=== PATIENT | male | born 1965 | race Caucasian/White ===

== ENCOUNTER 2016-01-29 08:49 | Outpatient (RCR) | payer BC ==
--- OUTSIDE RECORDS SUMMARY | 2016-01-26 12:59 | XMS REPORT | Continuity of Care Document ---
Author Author [facility] Organization [facility] Address Unknown Phone Unavailable Care Team Providers Care Bench Mover Name Role Phone TIFFANIE SALAS MD PCP Insurance Providers Payer Name Policy Number Subscriber Name [id number] Kuld[facility] Espinoza K 01 Advance Directives Directive Response Recorded Date/Time Advance Directives No 11/01/15 9:54am Health Care Power of Hot Pipe Gauger No 11/01/15 9:54am Resuscitation Status Full Code 11/01/15 9:54am Problems No problem information available. Medications Current Home Medications Medication Dose Units Route Directions Days/Qty Instructions Start Date Amlodipine Besylate 5 Mg 5 Mg Oral Daily 10/31/15 Zolpidem Tartrate 10 Mg 10 Mg Oral Bedtime as needed for Sleep 10/30 Ondansetron 8 Mg 8 Mg Oral As Needed as needed for Nausea 10/31/15 Nitrofurantoin Macrocrystal 100 Mg 100 Mg Oral Twice A Day 14 11/01/15 Tamsulosin Hcl 0.4 Mg 0.4 Mg Oral Daily 14 11/01/15 Hydrocodone/Acetaminophen 1 Each 1-2 Each Oral Every 4HRS for Pain 30 11/01/15 Social History Social History Problem Response Recorded Date/Time Alcohol Use Regular Use 11/01/2015 9:54am Recreational Drug Use No 11/01/2015 9:54am Recent Foreign Travel No 11/01/2015 9:52am Recent Infectious Disease Exposure No 11/01/2015 9:52am Sexually Transmitted Disease No 11/01/2015 9:54am HIV/AIDS No 11/01/2015 9:54am Smoking Status Never a Smoker 11/01/2015 9:53am Query Response Start Date Stop Date Smoking Status Never a Smoker Hospital Discharge Instructions Patient Instructions Physician Instructions New, Converted, or Re-newed RX: RX on Chart Plan Please make appointment to been seen in office Sunday 11/12. KUB prior to it KUB on way home Post ESWL instructions Increase oral fluids for 48 hours and then as needed. Diet and Activity as tolerated. If questions or concerns contact your physician Or seek help at emergency department. Plan of Care Discharge Date 11/01/15 2:35pm Instructions/Education Provided ANESTHESIA INSTRUCTIONS POSTOP DR. CRUMP-ESWL Prescriptions See Medication Section Functional Status No functional status results. Allergies, Adverse Reactions, Alerts No known allergies. Immunizations No immunization records. Vital Signs Acute Vital Signs Vital Response Date/Time Temperature (Fahrenheit) 98.0 degrees F (97.6 - 99.5) 11/01/2015 2:35pm Temperature (Calculated Celsius) 36.72849 degrees C (36.4 - 37.5) 11/01/2015 2:30pm Temperature Source Temporal 11/01/2015 2:35pm Pulse Rate (adult) 77 bpm (60 - 90) 11/01/2015 2:35pm Respiratory Rate 16 bpm (12 - 24) 11/01/2015 2:35pm O2 Sat by Pulse Oximetry 98 % (88 - 100) 11/01/2015 2:35pm Blood Pressure 137/99 mm Hg 11/01/2015 2:35pm Pain Numeric Pain Scale 0 11/01/2015 2:35pm Pain Intensity 0 11/01/2015 2:30pm Height (Feet) 6 feet 11/01/2015 9:54am Height (Inches) 2.00 inches 11/01/2015 9:54am Height (Calculated Centimeters) 187.330291 cm 11/01/2015 9:54am Weight (Pounds) 210 pounds 11/01/2015 9:54am Weight (Ounces) 9.0 oz 11/01/2015 9:54am Weight (Calculated Grams) 16696.544 gm 11/01/2015 9:54am Weight (Calculated Kilograms) 95.247885 kilograms 11/01/2015 9:54am Calculated BMI 24.26 11/01/2015 9:54am Results Pending Laboratory Results Test Name Collection Date/Time Pending Microbiology Results Procedure Source Collection Date/Time Procedures Procedure Status Date Provider(s) Extracorporeal shock wave lithotripsy (ESWL) Completed 11/01/15 PHILIPPE CRUMP MD Encounters Encounter Location Arrival/Admit Date Discharge/Depart Date Attending Provider Departed Surgical Day Care [facility] 11/01/15 8:56am 2:35pm PHILIPPE CRUMP MD Departed Clinic [facility] 10/31/15 1:54pm 10/31/15 4: 30pm PHILIPPE CRUMP MD
[2016-01-26 13:19] LABS: BILIRUBIN,URINE NEGATIVE (NEGATIVE); KETONES,URINE NEGATIVE (NEGATIVE); LEUKOCYTE ESTERASE ,URINE NEGATIVE (NEGATIVE); NITRITE,URINE NEGATIVE (NEGATIVE); PH,URINE 6.5 (5-9); PROTEIN,URINE NEGATIVE (NEGATIVE); UROBILINOGEN,URINE NORMAL (NORMAL)
[2016-01-28 15:31] LABS: C3 COMPLEMENT SERUM 120 mg/dL (73-183); C4 COMPLEMENT SERUM 23 mg/dL (15-59)
[~2016-01-29 08:49] MED LIST: AMLO5TAB2 PO; HYDR-3876 PO; NITR-68 PO; ONDA8TAB9 PO; TAMS0.4C98 PO; ZOLP10TA5 PO
--- OUTSIDE RECORDS SUMMARY | 2016-01-29 08:51 | XMS REPORT | Continuity of Care Document ---
Author Author [facility] Organization [facility] Address Unknown Phone Unavailable Care Team Providers Care Convex Grinder Operator Name Role Phone TIFFANIE SALAS MD PCP Insurance Providers Payer Name Policy Number Subscriber Name [id number] Stephanie Espinoza K 01 Advance Directives Directive Response Recorded Date/Time Advance Directives No 11/01/15 9:54am Health Care Power of Manager Agricultural No 11/01/15 9:54am Problems No problem information available. [...] No 11/01/2015 9:54am Recent Foreign Travel No 01/26/2016 12:48pm Sexually Transmitted Disease No 11/01/2015 9:54am HIV/AIDS No 11/01/2015 9:54am Sexually Transmitted Disease No 11/01/2015 9:54am Hospital Discharge Instructions Current inpatient/outpatient. Discharge instructions are currently unavailable. Plan of Care Prescriptions Functional Status No functional status results. Allergies, Adverse Reactions, Alerts No known allergies. Immunizations No immunization records. Vital Signs No known vital signs results. Results Laboratory Results Test Name Result Units Flags Reference Collection Date/Time Result Date/ Time Comments Stone Calcium 307 mg/day H < 250 12/11/2015 8:3012/19/2015 7:21am Stone Oxalate 38 mg/day < 45 12/11/2015 8:3012/19/2015 7:21am Stone Uric Acid 905 mg/day H < 700 12/11/2015 8:3012/19/2015 7:21am Urine Citrate 24 Hour 443 mg/day > 320 12/11/2015 8:3012/19/2015 7: 21am Urine pH 24 Hour 7.0 5.5-7.0 12/11/2015 8:3012/19/2015 7:21am Urine Total Volume 24 Hours 2.60 L/day > 2.00 12/11/2015 8:302015 7:21am Urine Sodium 24 Hour 159 mEq/24hr < 200 12/11/2015 8:3012/19/2015 7: 21am Urine Sulfites 12 mmol/day < 30 12/11/2015 8:3012/19/2015 7:21am Urine Phosphorus 24 Hour 959 mg/day < 1100 12/11/2015 8:302015 7:21am Urine Magnesium 24 Hour 89 mg/day > 60 12/11/2015 8:3012/19/2015 7: 21am Stone Calcium Oxalate 1.89 < 2.00 12/11/2015 8:3012/19/2015 7: 21am Stone Brushite 4.33 H < 2.00 12/11/2015 8:3012/19/2015 7:21am Stone Sodium Acid Urate 1.93 < 2.00 12/11/2015 8:3012/19/2015 7: 21am Stone Struvite 7.02 < 75.00 12/11/2015 8:3012/19/2015 7:21am Urine Uric Acid Saturation Ratio 0.18 < 2.00 12/11/2015 8:302015 7:21am Urine Ammonium 24 Hour 38 mEq/24hr 14-62 12/11/2015 8:30am 12/19/2015 7 :21am Urine Potassium 24 Hour 27 mEq/24hr 19-135 12/11/2015 8:30am 2015 7:21am Urine Creatinine 24 Hour 2009 mg/day H 800-2000 12/11/2015 8:30am 2015 7:21am Urine Stone Risk Review See Below 12/11/2015 8:30am 12/19/2015 7: 22am Hypercalciuria Hyperuricosuria High urinary pH Urine Supersaturation Interpret See Below 12/11/2015 8:30am 2015 7:22am Brushite (Ca phosphate) Urine Stone Risk See Below 12/11/2015 8:30am 12/19/2015 7:22am Hypercalciuric Nephrolithiasis Hyperuricosuric Nephrolithiasis Urine Stone Risk Graph See Below 12/11/2015 8:30am 12/19/2015 7: 22am Creatinine analysis may be affected by collection period. Graphical report will follow under separate cover. Test Performed at: [facility], [address] [place] [id number] Director: Obdulia Abdalla MD, FCAP Pending Laboratory Results Test Name Collection Date/Time Procedures No known history of procedures. Encounters Encounter Location Arrival/Admit Date Discharge/Depart Date Attending Provider Registered Clinic [facility] 01/26/16 12:51pm LORENA CHUNG DO Discharged Recurring [facility] 12/11/15 8:30am 8:44am PHILIPPE CRUMP MD
[2016-03-13 13:09] LABS: PORPHOB 2 (0-4)
[2016-03-13 13:10] LABS: CREA/PORPH 43 MG/DL
[2016-03-13 13:11] LABS: COPROPOR 3 (0-6)
[2016-03-13 13:12] LABS: HEPTA 24H <1 (0-2)
[2016-03-13 13:15] LABS: UROPORPHY <3 UMOL/L (0.0-8.8)
[2016-03-13 13:25] LABS: COPROPHORPH III 8 (0-14); PORPHYRIN INTRP Negative
== END 2016-04-25 | disposition home or self-care (01) ==
LOC: LAB 08:49
PROVIDERS: ATTEND Internal Medicine Gastroenterology
DX: R39.89 Other symptoms and signs involving the genitourinary system (principal)
CPT/HCPCS: 36415; 81000; 82570; 84110; 84120; 85652; 86141; 86160; 88271

== ENCOUNTER → 2016-12-13 | Outpatient (CLI) | payer BC ==
[2016-12-13 10:41] LABS: ANION GAP 9 MMOL/L (5-14); BLOOD UREA NITROGEN 10 MG/DL (7-18); BUN/CREATININE RATIO 13; CALCIUM 9.1 MG/DL (8.5-10.1); CARBON DIOXIDE 25 MMOL/L (21-32); CHLORIDE 105 MMOL/L (98-107); CREATININE SERUM 0.75 MG/DL (0.60-1.30); GFR ESTIMATED > 60; GLUCOSE 88 MG/DL (70-105); PHOSPHORUS 3.8 MG/DL (2.3-4.7); POTASSIUM 4.2 MMOL/L (3.6-5.0); SODIUM 139 MMOL/L (135-145); URIC ACID 6.4 MG/DL (2.6-7.2)
--- NOTE | 2016-12-13 12:10 | Diagnostic Imaging Report ---
INDICATION: History of kidney stone. COMPARISON: 11/13/2015. FINDINGS: 2 calculi are again noted overlying the lower pole of the left kidney and appear unchanged measuring approximately 6 mm. There is a calcification which has developed in the upper pole measuring approximately 2 x 5 mm. No calculi are seen overlying the right renal shadow. There are calcifications in the pelvis along the sidewall felt to represent phlebolith. IMPRESSION: Left renal calculi again noted in the lower pole with additional calcifications now present along the upper pole as well. Dictated by: Dictated on workstation # [id number]
[2016-12-17 14:38] LABS: STONE RISK AMMONIUM 24 mEq/24hr (14-62); STONE RISK BRUSHITE 2.92 (< 2.00); STONE RISK CA OXALATE 2.45 (< 2.00); STONE RISK CALCIUM 228 mg/day (< 250); STONE RISK CITRATE 507 mg/day (> 320); STONE RISK CREATININE 1912 mg/day (800-2000); STONE RISK MAGNESIUM 98 mg/day (> 60); STONE RISK OXALATE 68 mg/day (< 45); STONE RISK PHOSPHOROUS 934 mg/day (< 1100); STONE RISK POTASSIUM 80 mEq/24hr (19-135); STONE RISK SODIUM 214 mEq/24hr (< 200); STONE RISK SODIUM URATES 1.94 (< 2.00); STONE RISK STRUVITE 4.66 (< 75.00); STONE RISK SULFITE 14 mmol/day (< 30); STONE RISK TOTAL VOLUME 2.39 L/day (> 2.00); STONE RISK URIC ACID 605 mg/day (< 700); STONE RISK URIC ACID SAT 0.13 (< 2.00)
== END ==
LOC: LAB 09:49
PROVIDERS: ATTEND Urology
DX: Z87.442 Personal history of urinary calculi (principal)
CPT/HCPCS: 36415; 74000; 80048; 82140; 82340; 82507; 82570; 83735; 83945; 83986; 84100; 84105; 84133; 84300; 84392; 84550; 84560

== ENCOUNTER → 2017-01-23 | Outpatient (CLI) | payer BC ==
[~2017-01-23] MED LIST changes: +CATHETER FLUSH 10 ML SYR IV PRN; +FUROSEMIDE 40 MG/4 ML INJ (LASIX) IVP ONE
--- NOTE | 2017-01-23 16:23 | Diagnostic Imaging Report ---
EXAMINATION: Renal scan with Lasix INDICATION: Left hydronephrosis. COMPARISON: No prior ultrasound or CT scan evaluation is available to correlate. TECHNIQUE: After the intravenous administration of 4.8 mCi of Tc 99m MAG3, imaging over the abdomen and pelvis was obtained. Multiple phases include the flow images, renal the junction with the split function measurements obtained. This was followed by administration of Lasix 40 mg is administered intravenously, with post-Lasix the images are performed. The area of interest for measurements of radiotracer uptake over the renal collecting system with the assessment of a excretion performed. FINDINGS: There is, on the flow images, prompt uptake into the right kidney. There is poor perfusion in the left kidney. The split renal function is the percent on the right is 79 % and is 21 % on the left. Prior to Lasix administration, there is expected excretion in the right kidney with radiotracer uptake seen in the renal collecting system and into the urinary bladder. The left kidney fails to demonstrate excretion into the renal collecting system before and also after administration of Lasix. IMPRESSION: There is decreased perfusion and abnormal function in the left kidney with no significant excretion into the renal collecting system that does not improve with Lasix. This could relate to an obstructive etiology. Correlate clinically and with ultrasound or CT scan evaluation. Dictated by: Dictated on workstation # [id number]
== END ==
LOC: CARD 14:03
PROVIDERS: ATTEND Urology
DX: N13.30 Unspecified hydronephrosis (principal)
CPT/HCPCS: 78708

== ENCOUNTER 2017-02-06 05:29 | Outpatient (CLI) | payer BC ==
[~2017-02-06] VITALS: Ht 188 cm; Wt 83.9 kg
[~2017-02-06 05:29] MED LIST changes: -CATHETER FLUSH 10 ML SYR IV PRN; -FUROSEMIDE 40 MG/4 ML INJ (LASIX) IVP ONE
[2017-02-06] MEDS ORDERED: AMLO10TA2 PO (15:06)
[2017-02-06] MEDS ORDERED: ASPI-586 PO (15:06)
[2017-02-06] MEDS ORDERED: potassium PO (15:06)
== END 2017-02-06 15:10 ==
LOC: PREOP 05:29
PROVIDERS: ATTEND Urology
DX: Z01.818 Encounter for other preprocedural examination (principal); N13.5 Crossing vessel and stricture of ureter without hydronephrosis

== ENCOUNTER 2018-04-01 15:30 | Outpatient (CLI) | payer BC ==
[~2018-04-01] VITALS: Ht 188 cm; Wt 95.3 kg
[~2018-04-01 15:30] MED LIST changes: +AMLO10TA6 PO; -AMLO5TAB2 PO; +AMLO5TAB7 PO; +ASPI-586 PO; +PHEN-640 PO; +SULF1TAB35 PO; +potassium PO
[2018-04-01] MEDS ORDERED: CLON1TAB13 PO (15:42)
[2018-04-01] MEDS ORDERED: ZOLP10TA5 PO (15:42)
[2018-04-01] MEDS ORDERED: BACL10TA PO (15:42)
== END 2018-04-01 15:44 | disposition home or self-care (01) ==
LOC: PREOP 15:30
PROVIDERS: ATTEND Surgery
DX: Z01.818 Encounter for other preprocedural examination (principal)

== ENCOUNTER 2018-04-06 08:41 | Outpatient (CLI) | payer BC ==
[~2018-04-06] VITALS: Ht 188 cm; Wt 95.3 kg
[~2018-04-06 08:41] MED LIST changes: +BACL10TA PO; +CLON1TAB13 PO
[2018-04-06 10:21] LABS: BASOPHILS # (AUTO) 0.1 10^3/uL (0.0-0.1); BASOPHILS % (AUTO) 1 % (0-10); EOSINOPHILS # (AUTO) 0.1 10^3/uL (0.0-0.3); EOSINOPHILS % (AUTO) 1 % (0-10); HEMATOCRIT 36 % (40-54); HEMOGLOBIN 12.1 G/DL (13.3-17.7); LYMPHOCYTES # (AUTO) 1.1 X 10^3 (1.0-4.0); LYMPHOCYTES % (AUTO) 13 % (12-44); MEAN CORPUSCULAR HEMOGLOBIN 31 PG (25-34); MEAN CORPUSCULAR HGB CONC 34 G/DL (32-36); MEAN CORPUSCULAR VOLUME 93 FL (80-99); MEAN PLATELET VOLUME 9.5 FL (7.4-10.4); MONOCYTES # (AUTO) 0.6 X 10^3 (0.0-1.0); MONOCYTES % (AUTO) 7 % (0-12); NEUTROPHILS # (AUTO) 6.9 X 10^3 (1.8-7.8); NEUTROPHILS % (AUTO) 78 % (42-75); PLATELET COUNT 421 10^3/uL (130-400); RED BLOOD COUNT 3.87 10^6/uL (4.35-5.85); RED CELL DISTRIBUTION WIDTH 14.2 % (10.0-14.5); WHITE BLOOD COUNT 8.7 10^3/uL (4.3-11.0)
[2018-04-10] MEDS ORDERED: ACHD5005 PO (10:31)
== END 2018-04-06 10:00 | disposition home or self-care (01) ==
LOC: PREOP 08:41
PROVIDERS: ATTEND Surgery
DX: Z01.812 Encounter for preprocedural laboratory examination (principal); Z11.2 Encounter for screening for other bacterial diseases; K43.2 Incisional hernia without obstruction or gangrene
CPT/HCPCS: 36415; 85025; 87081

== ENCOUNTER 2018-04-06 09:27 | Day surgery (SDC) | payer BC ==
[~2018-04-06] VITALS: Ht 188 cm; Wt 95.3 kg
[2018-04-06 09:30] VITALS: BP 134/102
--- OUTSIDE RECORDS SUMMARY | 2018-04-06 09:31 | XMS REPORT ---
Author Author KATARZYNA OLGA Organization [facility] Address [address] [place] [address] Care Team Providers Care Leather Leveler Name Role Phone MARYBETHCOSTA AVENDANOA Unavailable PROBLEMS Type Condition ICD9-CM Code [id number] Code Onset Dates Condition Status SNOMED Code Problem Delirium due to another medical condition F05 Active 7125002 Problem Social phobia F40.10 Active 40056399 Problem Anxiety and depression F41.8 Active 147451268 ALLERGIES Substance Reaction Event Type Date Status Levofloxacin itching, swelling Drug Allergy Oct, Active Flagyl itching, swelling Drug Allergy Oct, Active ENCOUNTERS Encounter Location Date Diagnosis [facility] [address] [place] [phone] Nov, Delirium due to another medical condition F05 [facility] [address] [place] [phone] Oct, Delirium due to another medical condition [place] [address] [place] [phone] Oct, Anxiety and depression F41.8 and Social phobia F40.10 IMMUNIZATIONS No Known Immunizations SOCIAL HISTORY Never Assessed REASON FOR VISIT intake PLAN OF CARE Activity Details Follow Up 4 Weeks Reason: VITAL SIGNS Height 73.5 in 2016-10-29 Weight 174.4 lbs 2016-10-29 Heart Rate 81 bpm 2016-10-29 Respiratory Rate 18 2016-10-29 BMI 22.69 kg/m2 2016-10-29 Blood pressure systolic 118 mmHg 2016-10-29 Blood pressure diastolic 82 mmHg 2016-10-29 MEDICATIONS Medication Instructions Dosage Frequency Start Date End Date Duration Status Metoprolol Tartrate 25 MG Orally Twice a day 1 tablet with food 12h Active Ambien 10 MG Orally Once a day 1 tablet at bedtime as needed 24h Active Depakote ER 500 MG Orally twice a day 1 tablet 12h Active Pepcid 20 mg Orally twice a day 1 tablet 12h Active Potassium Citrate ER 15 MEQ (1620 MG) Orally Once a day 1 tablet with meals 24h Active RESULTS No Results PROCEDURES No Known procedures INSTRUCTIONS MEDICATIONS ADMINISTERED No Known Medications MEDICAL (GENERAL) HISTORY Type Description Date Medical History diverticulitis since 2012 Medical History history of fistulas and perforated bowel Medical History history of kidney stones Medical History HTN last 4-5 years Surgical History hemorhoidectomy Surgical History cholescyectomy Surgical History kidney stones Surgical History back surgery Surgical History ruptured testicle s/p groin injury Surgical History colon resection and bladder fistula repair 09/2016 Hospitalization History colon resection, and bladder fistula repair 09/2016 Hospitalization History several for diverticulitis
--- OUTSIDE RECORDS SUMMARY | 2018-04-06 09:31 | XMS REPORT | Clinical Summary ---
Author Author [facility] Organization [facility] Address Unknown Phone Unavailable Care Team Providers Care Special Education Para Professional Name Role Phone RadhaGeraldinecleo MUNOZ PCP Ladan Claire MD Unavailable Nestor Dover MD 21 Source Comments Some departments are not documenting in the electronic medical record. If you do not see the information that you expected, contact Release of Information in the Health Information Management department at [phone] for further assistance in locating additional records.[facility] Allergies Comments Active Allergy Reactions Severity Noted Date Ciprofloxacin HIVES Medium 07/24/2017 Facial edema and global itching Levofloxacin HIVES, Medium 05/21/2016 ITCHING, EDEMA Pt states altered mental status for 1 week Midazolam SEE COMMENTS Low 02/24/2017 Medications End Date Status Medication Sig Dispensed Refills Start Date Active potassium citrate(+) Take 15 mEq 0 (UROCIT-K) 15 mEq tablet by mouth twice daily. Take with food. Active zolpidem CR(+) (AMBIEN Take 12.5 mg 0 CR) 12.5 mg tablet by mouth at 7 bedtime as needed. Active ondansetron (ZOFRAN ODT) Dissolve 4 mg 0 4 mg rapid dissolve by mouth as tablet Needed for Nausea or Vomiting. Place on tongue to disolve. Active amLODIPine (NORVASC) 10 Take 10 mg by 0 mg tablet mouth daily. Active polyethylene glycol 3350 Take 1 packet 12 each 4 (MIRALAX) 17 g by mouth 7 packetIndications: daily. 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 No subjective complaints today other than mild incisional abdominal pain. Counseled this may take months to full resolve. No recent UTIs. Encouraged fluid intake. - Patient can return to clinic on an as needed basis Diverticulitis of large intestine without perforation or abscess without bleeding Immunizations Name Dates Previously Given Next Due Pneumococcal Vaccine 10/07/2016 (23-Daisy Adult) Family History Medical History Relation Name Comments Cancer-Lung Father High Cholesterol Father Hypertension Father Diabetes Maternal Grandfather Stroke Maternal Grandfather Cancer-Colon Maternal Grandmother High Cholesterol Maternal Grandmother Cancer Mother skin Cancer-Ovarian Mother Cervical Cancer Mother Heart Disease Mother Heart problem Mother High Cholesterol Mother Hypertension Mother Thyroid Disease Mother High Cholesterol Paternal Grandfather High Cholesterol Paternal Grandmother Relation Name Status Comments Father Maternal Grandfather Maternal Grandmother Mother Alive Paternal Grandfather Paternal Grandmother Social History Date Tobacco Use Types Packs/Day Years Used Never Smoker Smokeless Tobacco: Never Used Alcohol Use Drinks/Week oz/Week Comments Yes 2 Shots of 1.2 liquor Sex Assigned at Date Recorded Not on file Industry Job Start Date Occupation Not on file Not on file Not on file Travel End Travel History Travel Start No recent travel history available. Last Filed Vital Signs Time Taken Vital Sign Reading 09/15/2017 8:54 AM CDT Blood Pressure 129/94 09/15/2017 8:54 AM CDT Pulse 75 09/15/2017 8:54 AM CDT Temperature 36.5 C (97.7 F) 09/15/2017 8:54 AM CDT Respiratory Rate 14 07/24/2017 9:13 AM CDT Oxygen Saturation 99% - Inhaled Oxygen - Concentration 09/15/2017 8:54 AM CDT Weight 94.5 kg (208 lb 6.4 oz) 09/15/2017 8:54 AM CDT Height 188 cm (6' 2") 09/15/2017 8:54 AM CDT Body Mass Index 26.76 Plan of Treatment Health Maintenance Due Date Last Done Comments PHYSICAL (COMPREHENSIVE) 1974 EXAM HIV SCREENING 1982 DTAP/TDAP VACCINES (1 - 1985 Tdap) SHINGLES RECOMBINANT 2017 VACCINE (1 of 2) INFLUENZA VACCINE 11/12/2017 COLORECTAL CANCER 07/25/2027 07/24/2017, 07/25/2016, 07/25/2016 SCREENING Implants Device Identifier Shelf Expiration Date Model / Serial / Lot Implanted Type Area Manufactur er 2020 [id number] / [id number] / [id number] Stent Ureteral Percuflex L80 Cm Od6 Left: Ureter [place] Fr Open Tip Luer Lock - SCI:MICROV [id number] ASIVE:UROL Implanted: Qty: 1 on 04/02/2017 by Nestor Kennedy MD 09/12/2019 5086-02 / [id number] / [id number] Barrier Adhesion 3x5in Procedure Left: Ureter GENZYME Pack Bioresorbable Membrane - [id number] Implanted: Qty: 1 on 04/02/2017 by Netsor Dover MD Results Not on filefrom Last 3 Months Insurance Payer Benefit Subscriber ID Type Phone Address Plan / Group BCBS MARK BCBS MARK xxxxxxxxxxxx O [facility] BLUE Advance Directives Patient has advance care planning documents, and code status on file. For more information, please contact: [facility] [address] [place] [address] Date Inactivated Comments Code Status Date Activated 04/05/2017 5:43 PM Full Code 04/02/2017 7:29 PM Provider has discussed Code Status No, discussion not w/Patient or Family? necessary based on Dx 10/07/2016 3:02 PM Full Code 09/18/2016 9:43 PM Provider has discussed Code Status No, discussion not w/Patient or Family? necessary based on Dx
--- OUTSIDE RECORDS SUMMARY | 2018-04-06 09:31 | XMS REPORT ---
Author Author KATARZYNA OLGA Organization [facility] Address [address] [place] [address] Care Team Providers Care Portrait Artist Name Role Phone MARYBETHCOSTA AVENDANOA Unavailable PROBLEMS Type Condition ICD9-CM Code [id number] Code Onset Dates Condition Status SNOMED Code Problem Delirium due to another medical condition F05 Active 7229129 Problem Social phobia F40.10 Active 00431432 Problem Anxiety and depression F41.8 Active 551688143 ALLERGIES Substance Reaction Event Type Date Status Levofloxacin itching, swelling Drug Allergy Nov, Active Flagyl itching, swelling Drug Allergy Nov, Active ENCOUNTERS Encounter Location Date Diagnosis [facility] [address] [place] [phone] Nov, Delirium due to another medical condition F05 [facility] [address] [place] [phone] Oct, Delirium due to another medical condition [address] [place] [id number] [place] [phone] Oct, Anxiety and depression F41.8 and Social phobia F40.10 IMMUNIZATIONS No Known Immunizations SOCIAL HISTORY Never Assessed REASON FOR VISIT f/u PLAN OF CARE VITAL SIGNS Height 73.5 in 2016-12-03 Weight 177.7 lbs 2016-12-03 Heart Rate 72 bpm 2016-12-03 Respiratory Rate 18 2016-12-03 BMI 23.12 kg/m2 2016-12-03 Blood pressure systolic 128 mmHg 2016-12-03 Blood pressure diastolic 84 mmHg 2016-12-03 MEDICATIONS Medication Instructions Dosage Frequency Start Date End Date Duration Status Ambien 10 MG Orally Once a day 1 tablet at bedtime as needed 24h Active Pepcid 20 mg Orally twice a day 1 tablet 12h Active Metoprolol Tartrate 25 MG Orally Twice a day 1 tablet with food 12h Active Potassium Citrate ER 15 MEQ [...]
--- OUTSIDE RECORDS SUMMARY | 2018-04-06 09:31 | XMS REPORT ---
Author Author HEDY RAMIREZ Organization [facility] Address [address] [place] [address] Care Team Providers Care Agent Broker Name Role Phone HEDY RAMIREZ Unavailable PROBLEMS Type Condition ICD9-CM Code ASV70-JQ Code Onset Dates Condition Status SNOMED Code Problem Delirium due to another medical condition F05 Active 2433486 Problem Social phobia F40.10 Active 01526735 Problem Anxiety and depression F41.8 Active 598861450 ALLERGIES No Information ENCOUNTERS Encounter Location Date Diagnosis [address] [place] [phone] Nov, Delirium due to another medical condition [address] [place] [address] [place] [phone] Oct, Delirium due to another medical condition [place] [address] [place] [phone] Oct, Anxiety and depression F41.8 and Social phobia F40.10 IMMUNIZATIONS No Known Immunizations SOCIAL HISTORY Never Assessed REASON FOR VISIT [facility] [place] Consult PLAN OF CARE Activity Details Follow Up two weeks Reason:psychotropic medication VITAL SIGNS MEDICATIONS No Known Medications RESULTS No Results PROCEDURES Procedure Date Ordered Result Body Site Psych diagnostic evaluation, new patient October 16, 2016 INSTRUCTIONS MEDICATIONS ADMINISTERED No Known Medications MEDICAL [...]
[2018-04-06] MEDS ORDERED: NS IV 500 ML 500 ML IV PRN (09:33)
[2018-04-06] MEDS ORDERED: NS IV 500 ML 500 ML ONE (09:35)
--- NOTE | 2018-04-06 09:37 | Conscious Sedation/ASA ---
Conscious Sedation Pre-Proced Time 09:37 ASA Score 2 For ASA 3 and 4: Consider anesthesia and medical clearance. Also, for patients with a history of failed moderate sedation consider anesthesia. Airway Lungs Heart ASA score ASA 1: a normal healthy patient ASA 2: a patient with a mild systemic disease (mid diabetes, controlled hypertension, obesity ASA 3: a patient with a severe systemic disease that limits activity (angina , COPD, prior Myocardial infarction) ASA 4: a patient with an incapacitating disease that is a constant threat to life (CHF, renal failure) ASA 5: a moribund patient not expected to survive 24 hrs. (ruptured aneurysm) ASA 6: a declared brain patient whose organs are being harvested. For emergent operations, add the letter E after the classification Mallampati Classification Grade 1 Sedation Plan Discussed options with patient/fam The patient is an appropriate candidate to undergo the planned procedure, sedation, and anesthesia. The patient immediately re-assessed prior to indication. SUSAN THAPA MD Apr 06, 2018 09:37
--- NOTE | 2018-04-06 09:37 | History & Physicial ---
History of Present Illness History of Present Illness Reason for visit/HPI to undergo surveillance colonoscopy, in view of previous adenomatous polyps Date of Admission 04/06/18 Date Seen by a Provider: Apr 06, 2018 Time Seen by a Provider: 09:35 I consulted on this patient on 04/06/18 09:34 Attending Physician Susan Thapa MD Admitting Physician No,Local Physician Consult Allergies and Home Medications Allergies Coded Allergies: ciprofloxacin (Verified Allergy, Unknown, itching, 02/06/17) metronidazole (Verified Allergy, Unknown, itching, 02/06/17) midazolam (Verified Adverse Reaction, Unknown, "made me crazy for a week" , 02/06/17) Home Medications Amlodipine Besylate 10 Mg Tablet, 10 MG PO DAILY, (Reported) Baclofen 10 Mg Tablet, 10 MG PO TID PRN for MUSCLE CRAMPS, (Reported) Clonazepam 1 Mg Tablet, 1 MG PO BID PRN for ANXIETY, (Reported) Zolpidem Tartrate 10 Mg Tablet, 10 MG PO HS PRN for INSOMNIA, (Reported) Patient Home Medication List Home Medication List Reviewed: Yes Past Uhbtexf-Gusvog-Ziocbe Hx Patient Social History Marrital Status: single Employed/Student: employed Recent Foreign Travel: No Contact w/other who traveled: No Recent Hopitalizations: No Immunizations Up To Date Tetanus Booster (TDap): Unknown Seasonal Allergies Seasonal Allergies: No Surgeries Yes Bladder Surgery, Bowel Surgery Respiratory No Cardiovascular Yes Hypertension Neurological No Reproductive System Hx Reproductive Disorders: No Sexually Transmitted Disease: No HIV/AIDS: No Genitourinary Yes Kidney Stones Gastrointestinal Yes Gastroesophageal Reflux, Diverticulosis Musculoskeletal No HEENT Loss of Vision: Denies Hearing Impairment: Denies Blood Transfusions Adverse Reaction to a Blood Tr: No (N/A) Review of Systems Constitutional: no symptoms reported EENTM: no symptoms reported Respiratory: no symptoms reported Cardiovascular: no symptoms reported Gastrointestinal: see HPI Genitourinary: see HPI Musculoskeletal: no symptoms reported Skin: no symptoms reported Psychiatric/Neurological: No Symptoms Reported Physical Exam Vital Signs Capillary Refill : Height, Weight, BMI Height: 6'2.00" Weight: 210lbs. 0.0oz. 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 History of adenomatous polyps. For surveillance colonoscopy Admission Diagnosis Admission Status: Other (Outpt Proc) SUSAN THAPA MD Apr 06, 2018 09:37
[2018-04-06] MEDS ORDERED: fentaNYL INJECTION 100 MCG/2 ML AMP IVP ONE (09:45)
[2018-04-06] MEDS ORDERED: MIDAZOLAM 2 MG/2 ML (VERSED) VIAL IVP ONE (09:45)
[2018-04-06] MEDS ORDERED: PROPOFOL INJECTION 50 ML IV ONE ×2 (10:28→11:03)
[2018-04-06] MEDS ORDERED: proPOfol 200 MG/20 ML (DIPRIVAN) VIAL IV ONE (11:02)
--- NOTE | 2018-04-06 11:20 | Endo Procedure Record ---
Endo Procedure Report Date of Procedure Last Colonoscopy: Yes (2016) Apr 06, 2018 Surgeon (s) SUSAN THAPA MD Post Procedure/Op Diagnosis occasional diverticulae Procedure Performed colonoscopy to cecum Description of Procedure Anesthesia Type: Conscious Sedation Specimen(s) collected/removed none Description of the Procedure Indication for the procedure: This gentleman has a personal history of adenomatous polyps and a family history of colon cancer. He underwent sigmoid resection with anastomosis to manage colovesical fistula due to diverticular disease about 18 months ago. He returned for surveillance colonoscopy. Informed consent was obtained after reviewing the procedure in detail. Description of the procedure: He was placed in left lateral position and his vital signs were monitored. Conscious sedation was achieved using propofol infusion by our VALANCE CUTTER. Examination of the perianal area revealed a small external hemorrhoid. Digital examination was otherwise unremarkable. The colonoscope was then introduced into the rectum and advanced to the cecum. The quality of bowel preparation was reasonable. The scope was then withdrawn slowly and the mucosa examined in a systematic fashion. Finding: Occasional diverticulae. The anastomosis itself was patent without any evidence of stricture. He tolerated the procedure well and was taken back to the nursing area in a stable condition. Impression: Previous personal history of adenomatous polyps. Positive family history. No polyps found today. Commence surveillance colonoscopy in 5 years SUSAN THAPA MD Apr 06, 2018 11:20
--- NOTE | 2018-04-06 11:24 | Discharge Inst-Simple/Standard ---
Discharge Inst-Standard Discharge Medications New, Converted or Re-Newed RX: Other Patient Instructions/Follow Up Plan of Care/Instructions/FU: repeat colonoscopy in 5 years Activity as Tolerated: Yes Discharge Diet: No Restrictions SUSAN THAPA MD Apr 06, 2018 11:24
[2018-04-06 11:30] VITALS: BP 122/90
[2018-04-06 12:00] VITALS: BP 131/90
[2018-04-06 12:15] VITALS: BP 131/90
--- NOTE | 2018-04-06 12:32 | Anesthesia-General Post-Op ---
MAC Patient Condition Mental Status/LOC: Same as Preop Cardiovascular: Satisfactory Nausea/Vomiting: Absent Respiratory: Satisfactory Pain: Controlled Complications: Absent Post Op Complications Complications None Follow Up Care/Instructions Patient Instructions None needed. Anesthesiology Discharge Order Discharge Order Patient is doing well, no complaints, stable vital signs, no apparent adverse anesthesia problems. No complications reported per nursing. IRWIN LOPEZ CRNA Apr 06, 2018 12:32
[2018-04-10] MEDS ORDERED: ACHD5005 PO (10:31)
== END 2018-04-06 12:15 | disposition home or self-care (01) ==
LOC: ENDO 09:27
PROVIDERS: ATTEND Surgery
DX: Z09 Encounter for follow-up examination after completed treatment for conditions other than malignant neoplasm (principal); Z86.010 Personal history of colon polyps; Z80.0 Family history of malignant neoplasm of digestive organs; K57.30 Diverticulosis of large intestine without perforation or abscess without bleeding; K64.4 Residual hemorrhoidal skin tags; Z88.1 Allergy status to other antibiotic agents; I10 Essential (primary) hypertension; K21.9 Gastro-esophageal reflux disease without esophagitis; Z79.899 Other long term (current) drug therapy

== ENCOUNTER 2018-04-10 05:59 | Day surgery (SDC) | payer BC ==
[~2018-04-10] VITALS: Ht 188 cm; Wt 98.6 kg
--- OUTSIDE RECORDS SUMMARY | 2018-04-10 06:03 | XMS REPORT | Clinical Summary ---
Author Author [facility] Organization [facility] Address Unknown Phone Unavailable Care Team Providers Care Dry End Tester Name Role Phone RadhaGeraldinecleo MUNOZ PCP Ladan Claire MD Unavailable Nestor Dover MD 21 Source Comments Some departments are not documenting in the electronic medical record. If you do not see the information that you expected, contact Release of Information in the Health Information Management department at [phone] for further assistance in locating additional records.[facility] Allergies Comments Active Allergy Reactions Severity [...] Overview: Added automatically from request for surgery [id number] L ast Assessment & Plan: Next a screening in 1 year, 2018 Ureteral stricture, left 03/18/2017 Overview: Added automatically from request for surgery [id number] [place]-vesical fistula 09/18/2016 Dysuria 07/07/2016 Colovesical fistula 07/07/2016 [...] Lot Implanted Type Area Manufactur er 2020 [id number] / [id number] / [id number] Stent Ureteral Percuflex L80 Cm Od6 Left: Ureter B[place]ON Fr Open Tip Luer Lock - SCI:MICROV [id number] ASIVE:UROL Implanted: Qty: 1 on 04/02/2017 by Nestor Kennedy MD 09/12/2019 [id number] / [id number] / [id number] Barrier Adhesion 3x5in Procedure Left: Ureter GENZYME Pack Bioresorbable Membrane - [id number] Implanted: Qty: 1 on 04/02/2017 by Nestor Dover MD Results Not on filefrom Last 3 Months Insurance Payer Benefit Subscriber ID Type Phone Address Plan / Group BCBS MARK BCBS MARK xxxxxxxxxxxx O [facility] Advance Directives Patient has advance care planning documents, and code status on file. For more information, please contact: [facility] [address] [place] [address] Date Inactivated Comments Code Status Date Activated 04/05/2017 5:43 PM Full Code 04/02/2017 7:29 PM Provider has discussed Code Status No, discussion not w/Patient or Family? necessary based on Dx 10/07/2016 3:02 PM Full Code 09/18/2016 9:43 PM Provider has discussed Code Status No, discussion not w/Patient or Family? necessary based on Dx
[2018-04-10 06:20] VITALS: BP 137/97
[2018-04-10] MEDS ORDERED: VANCOMYCIN INJECTION 1,000 MG in NS (IVPB) 250 ML IV ONE (06:30)
[2018-04-10] MEDS ORDERED: SEVOFLURANE (ULTANE) 15 ML INHAL SOLN ONE ×8 (07:18→10:21)
[2018-04-10] MEDS ORDERED: LIDOCAINE PF 2% 5 ML (XYLOCAINE) VIAL ONE (07:18)
[2018-04-10] MEDS ORDERED: LACTATED RINGERS 1,000 ML IV ONE (07:18)
[2018-04-10] MEDS ORDERED: proPOfol 200 MG/20 ML (DIPRIVAN) VIAL IV ONE (07:18)
[2018-04-10] MEDS ORDERED: fentaNYL INJECTION 100 MCG/2 ML AMP ONE (07:19)
[2018-04-10] MEDS ORDERED: BUP/EPI 0.5% 1:200,000 (SENSORCAINE) 30 ML VIAL ONE (07:19)
[2018-04-10] MEDS: LACTATED RINGERS 1,000 ML IV PRN ×2 (07:40→09:15)
--- NOTE | 2018-04-10 07:50 | History & Physicial ---
History of Present Illness History of Present Illness Reason for visit/HPI To undergo robotic assisted repair of a recurrent ventral hernia with biologic mesh Date of Admission 04/10/18 Date Seen by a Provider: Apr 10, 2018 Time Seen by a Provider: 07:49 I consulted on this patient on 04/10/18 07:48 Attending Physician Susan Thapa MD Admitting Physician No,Local Physician Consult Allergies and Home Medications Allergies Coded Allergies: Sulfa (Sulfonamide Antibiotics) (Verified Allergy, Unknown, HIVES, ) ciprofloxacin (Verified Allergy, Unknown, itching, 02/06/17) metronidazole (Verified Allergy, Unknown, itching, 02/06/17) midazolam (Verified Adverse Reaction, Unknown, "made me crazy for a week" , 02/06/17) Home Medications Amlodipine Besylate 10 Mg Tablet, 10 MG PO DAILY, (Reported) Baclofen 10 Mg Tablet, 10 MG PO TID PRN for MUSCLE CRAMPS, (Reported) Clonazepam 1 Mg Tablet, 1 MG PO BID PRN for ANXIETY, (Reported) Zolpidem Tartrate 10 Mg Tablet, 10 MG PO HS PRN for INSOMNIA, (Reported) Patient Home Medication List Home Medication List Reviewed: Yes Past Qnfhmyo-Ffhisr-Oazldk Hx Patient Social History Marrital Status: Employed/Student: employed Alcohol Use: Occasionally Uses Recreational Drug Use: No Smoking Status: Never a Smoker Recent Foreign Travel: No Contact w/other who traveled: No Recent Hopitalizations: No Recent Infectious Disease Expo: No Immunizations Up To Date Tetanus Booster (TDap): Unknown Pediatric: No Seasonal Allergies Seasonal Allergies: No Surgeries Yes Bladder Surgery, Bowel Surgery Respiratory No Cardiovascular Yes Hypertension Neurological No Reproductive System Hx Reproductive Disorders: No Sexually Transmitted Disease: No HIV/AIDS: No Genitourinary Yes Kidney Stones Gastrointestinal Yes Abdominal Hernia, Gastroesophageal Reflux, Diverticulosis Musculoskeletal No HEENT Loss of Vision: Denies Hearing Impairment: Denies Blood Transfusions Adverse Reaction to a Blood Tr: No (N/A) Review of Systems Constitutional: no symptoms reported EENTM: no symptoms reported Respiratory: no symptoms reported Cardiovascular: no symptoms reported Gastrointestinal: no symptoms reported Genitourinary: no symptoms reported Musculoskeletal: no symptoms reported Skin: no symptoms reported Psychiatric/Neurological: Anxiety Physical Exam Vital Signs Vital Signs - First Documented 04/10/18 06:20 Temp 98.0 Pulse 76 Resp 18 B/P (MAP) 137/97 (110) Pulse Ox 98 O2 Delivery Room Air Capillary Refill : Height, Weight, BMI Height: 6'2.00" Weight: 217lbs. 6.0oz. 98.298404ja; 27.9 BMI Method: General Appearance: No Apparent Distress Neck: Normal Inspection Respiratory: Lungs Clear Cardiovascular: Regular Rate, Rhythm Gastrointestinal: Non Tender, Soft, Hernia Neurologic/Psychiatric: Alert, Oriented x3 Skin: Warm/Dry Assessment/Plan Assessment and Plan Gentleman with a recurrent ventral hernia. For robotic assisted repair with bio- mesh Admission Diagnosis Admission Status: Other (Same Day Surgery) SUSAN THAPA MD Apr 10, 2018 07:50
--- NOTE | 2018-04-10 07:51 | Progress Note-Pre Operative ---
Pre-Operative Progress Note H&P Reviewed The H&P was reviewed, patient examined and no changes noted. Date Seen by Provider: Apr 10, 2018 Time Seen by Provider: 07:51 Date H&P Reviewed: Apr 10, 2018 Time H&P Reviewed: 07:51 Pre-Operative Diagnosis: Recurrent ventral hernia SUSAN THAPA MD Apr 10, 2018 07:51
[2018-04-10] MEDS ORDERED: ROCURONIUM 10 MG/ML 5 ML SYRINGE IV ONE ×3 (08:33→09:56)
[2018-04-10] MEDS ORDERED: ONDANSETRON 4 MG/2 ML (SDV) Z0FRAN ONE (10:22)
[2018-04-10] MEDS ORDERED: DEXAMETHASONE 10 MG/ML (DECADRON) 1 ML VIAL ONE (10:22)
[2018-04-10] MEDS ORDERED: fentaNYL INJECTION 100 MCG/2 ML AMP IV PRN (10:30)
[2018-04-10] MEDS ORDERED: BACLOFEN 10 MG (LIORESAL) TAB PO PRN (10:30)
[2018-04-10] MEDS ORDERED: ONDANSETRON 4 MG/2 ML (SDV) Z0FRAN IVP PRN ×2 (10:30→10:45)
[2018-04-10] MEDS ORDERED: ACHD5005 PO (10:31)
--- NOTE | 2018-04-10 10:32 | Discharge Inst-Simple/Standard ---
Discharge Inst-Standard Discharge Medications New, Converted or Re-Newed RX: RX on Chart Patient Instructions/Follow Up Plan of Care/Instructions/FU: BBand-aids off before discharge. Binder for 2 weeks. F/U in 4 weeks Activity as Tolerated: No Goal: No lifting over 20 lb Discharge Diet: No Restrictions SUSAN THAPA MD Apr 10, 2018 10:32
[2018-04-10] MEDS ORDERED: NEOSTIGMINE 1 MG/ML 5 ML SYRINGE ONE (10:34)
[2018-04-10] MEDS ORDERED: GLYCOPYRROLATE 0.2 MG/ML (ROBINUL) 2 ML VIAL ONE (10:34)
[2018-04-10] MEDS ORDERED: morphine INJ 10 MG/ML 1ML (SYR OR VIAL) ONE (10:38)
[2018-04-10] MEDS ORDERED: HYDROmorphone 2 MG/ML VIAL (DILAUDID) IV ONE (10:45)
[2018-04-10] MEDS ORDERED: morphine INJ 10 MG/ML 1ML (SYR OR VIAL) IVP ONE (10:45)
[2018-04-10] MEDS ORDERED: MEPERIDINE (DEMEROL) INJ 50 MG/ML IVP ONE (10:45)
[2018-04-10] MEDS ORDERED: fentaNYL INJECTION 100 MCG/2 ML AMP IVP ONE (10:45)
--- NOTE | 2018-04-10 10:55 | Operative Report ---
Operative Report Date of Procedure/Surgery Apr 10, 2018 Surgeon (s) SUSAN THAPA MD Orthodontist Vice President (s): N/A Post-Operative Diagnosis same Procedure Performed robotic assisted repair with biologic mesh Description of Procedure Anesthesia Type: General Estimated blood loss (mL): minimal Specimen(s) collected/removed none Description of the Procedure Indication for the procedure: This gentleman presented with a recurrent ventral hernia to the right of his umbilicus, resulting from open sigmoid resection to manage colovesical fistula, about 18 months ago. He was offered repair of the hernia using minimally invasive technique with robotic assistance and reinforcement with biologic mesh. The use of the latter was more relevant due to the contaminated nature of the operative field. Informed consent was obtained after reviewing the operative details and complications of wound infection, iatrogenic injury to the bowel, infection of the mesh and further recurrence of the hernia itself. Description of the procedure: He was placed supine on the operating table and general anesthesia induced. Sequential compression devices were placed around his legs, to minimize the risk of venous thrombosis. A Fields catheter was placed to decompress the bladder during surgery. It was removed at the end of the operation. Abdomen was prepared and draped in the usual sterile manner. The right side of his body was lifted up on soft roll, to facilitate triangulation of the robotic system. Pneumoperitoneum was established using a Veress needle introduced over the right subcostal margin, along the mid clavicular line. Abdominal pressure was initially maintained at 17 mmHg using carbon dioxide insufflation. A 12 mm trocar was placed and anatomy visualized using the high definition, 3- dimensional laparoscopic, associated with da Ana system. Loops of small bowel were adherent to the anterior abdominal wall, constituting the hernia. Under direct view, I placed another 12 mm trocar over the right side of the abdomen, along the anterior axillary line, followed by an 8 mm trocar over the right lower quadrant. The robotic system was then docked in place. Small bowel was taken down by sharp dissection without any iatrogenic injury. The symptomatic component of the hernia was just to the right of the umbilicus measuring 4 cm in width by 3 cm in length. In addition, a smaller diastases was encountered caudal to the symptomatic hernia. The defect was closed using 0V LOC, permanent suture with the robotic assistance without too much tension. During this maneuver, intra-abdominal pressure was maintained 11 mmHg. The diastases was gently approximated using the same suture material without too much tension. A biologic mesh (PHASIX) measuring 15 cm in length by 10 cm in width was chosen for repair. It likely suture was placed at the center to facilitate centering of the mesh. The edges of the mesh were secured to the abdominal musculature with 20V LOC sutures with the robotic assistance without any tension. Hemostasis was satisfactory and the operation concluded. Incisions were closed using 4-0 Vicryl, in a subcuticular fashion. 0.5 percent Marcaine with epinephrine was taken along the incisions, both preemptively and at the conclusion of the operation. He tolerated the procedure well, was extubated in the operating room and taken to the recovery room in a stable condition. Findings of the Procedure See op report Allergies and Home Medications Allergies Coded Allergies: Sulfa (Sulfonamide Antibiotics) (Verified Allergy, Unknown, HIVES, ) ciprofloxacin (Verified Allergy, Unknown, itching, 02/06/17) metronidazole (Verified Allergy, Unknown, itching, 02/06/17) midazolam (Verified Adverse Reaction, Unknown, "made me crazy for a week" , 02/06/17) Home Medications Amlodipine Besylate 10 Mg Tablet, 10 MG PO DAILY, (Reported) Baclofen 10 Mg Tablet, 10 MG PO TID PRN for MUSCLE CRAMPS, (Reported) Clonazepam 1 Mg Tablet, 1 MG PO BID PRN for ANXIETY, (Reported) Hydrocodone Bit/Acetaminophen 1 Tab Tab, 1-2 TAB PO Q6H PRN for PAIN-MODERATE Prescribed by: SUSAN THAPA on 04/10/18 1031 Zolpidem Tartrate 10 Mg Tablet, 10 MG PO HS PRN for INSOMNIA, (Reported) Patient Home Medication List Home Medication List Reviewed: Yes SUSAN THAPA MD Apr 10, 2018 10:54
[2018-04-10] MEDS: LACTATED RINGERS 1,000 ML IV SCH ×2 (11:19→12:06)
--- NOTE | 2018-04-10 11:40 | NUR ---
REC'D PER BED FROM PAR. SEE ASSESSMENT.
--- NOTE | 2018-04-10 12:00 | NUR ---
FENTANYL 50 IV FOR PAIN.
--- NOTE | 2018-04-10 12:35 | NUR ---
LORTAB 7.5 FOR PAIN.
[2018-04-10] MEDS: HYDROcodone/APAP 7.5 MG/325 MG (LORTAB, LORCET PLUS) TABLET PO PRN ×2 (12:39→19:44)
[2018-04-10] MEDS ORDERED: clonazePAM 1 MG (KlonoPIN) TAB PO PRN (13:45)
--- NOTE | 2018-04-10 14:36 | Anesthesia-General Post-Op ---
General Patient Condition Mental Status/LOC: Same as Preop Cardiovascular: Satisfactory Nausea/Vomiting: Absent Respiratory: Satisfactory Pain: Controlled Complications: Absent Post Op Complications Complications None Follow Up Care/Instructions Patient Instructions None needed. Anesthesia/Patient Condition Patient Condition Patient is doing well, no complaints, stable vital signs, no apparent adverse anesthesia problems. No complications reported per nursing. D/C home per [facility] Criteria: Yes ARIANA PACHECO CRNA Apr 10, 2018 14:36
--- NOTE | 2018-04-10 15:00 | NUR ---
FENTANYL 100 IV FOR PAIN. ANDREW VALDOVINOS D/I. TAKING SIPS PO.
[2018-04-10] MEDS: fentaNYL INJECTION 100 MCG/2 ML AMP IV PRN ×3 (15:02→20:01)
[2018-04-10 16:30] VITALS: BP 143/99
--- NOTE | 2018-04-10 17:30 | NUR ---
FENTANYL 100 IV FOR PAIN.
--- NOTE | 2018-04-10 17:45 | NUR ---
AMBULATED IN HALLWAY WITH ASSIST X2. TOLERATED WELL.
[2018-04-10] MEDS ORDERED: FLU QUADRIvalent (5+ YOA) 2018-2019 (AFLURIA) 0.5 ML IM ONE (19:30)
[2018-04-10 19:50] VITALS: BP 135/96
--- NOTE | 2018-04-10 21:10 | NUR ---
Dr. Santacruz notified of bp at 166/105 with hr at 101. New order rec to give one time dose of Amlodipine (Norvasc) 10MG PO.
[2018-04-10] MEDS ORDERED: amLODIPine 10 MG (NORVASC) TAB PO ONE (21:15)
--- NOTE | 2018-04-10 23:05 | NUR ---
Dr. Santacruz notified of continued increase in bp currently at 152/104 with hr at 104. New orders rec to give a one time dose of Toradol 30mg IV and to give Vasotec 2.5mg IV q 4 hr prn for SBP > 140.
[2018-04-10] MEDS ORDERED: ENALAPRILAT 2.5 MG/2 ML (VASOTEC) VIAL IV PRN (23:15)
[2018-04-10] MEDS ORDERED: KETOROLAC 30 MG/ML VIAL IVP ONE (23:15)
[2018-04-11] VITALS (8 sets, daily range): BP systolic 118–160; BP diastolic 83–103
[2018-04-11] MEDS: HYDROcodone/APAP 7.5 MG/325 MG (LORTAB, LORCET PLUS) TABLET PO PRN ×4 (00:22→13:38)
[2018-04-11] MEDS: fentaNYL INJECTION 100 MCG/2 ML AMP IV PRN (01:07)
--- NOTE | 2018-04-11 01:10 | NUR ---
BP currently at 145/99 with hr at 97 - Vasotec 2.5mg IV given at 0032. See vital signs for monitoring of BP. Addendum: 04/11/18 at 0119 by MERCY ONEILL RN See vital signs intervention for monitor of BP
[2018-04-11] MEDS: LACTATED RINGERS 1,000 ML IV SCH ×2 (02:39→10:53)
--- NOTE | 2018-04-11 09:20 | NUR ---
LORTAB PO FOR PAIN. LEVI DIET WITHOUT C/O.
--- NOTE | 2018-04-11 09:25 | Progress Note-Standard ---
Standard Progress Note Progress Notes/Assess & Plan Date Seen by a Provider: Apr 11, 2018 Time Seen by a Provider: 08:30 Progress/Assessment & Plan adequate pain control. Comfortable. No nausea. Blood pressure normal. Could be discharged home. Final Diagnosis recurrent incisional hernia. SUSAN THAPA MD Apr 11, 2018 09:25
--- NOTE | 2018-04-11 13:30 | NUR ---
LORTAB PO FOR PAIN. RX AND INST AND VERBALIZED UNDERSTANDING. BANDAIDS REMOVED FROM ABD. SS AND BINDER INTACT. SITES CLEAR WITHOUT DRAINAGE. HAS AMBULATED IN HALLS WITHOUT DIFFICULTY. IV REMOVED.
--- NOTE | 2018-04-11 14:03 | NUR ---
DC'D PER WC WITH .
== END 2018-04-11 14:03 | disposition home or self-care (01) ==
LOC: SDC 05:59 → 4TH 11:30 → SDC 04-11 14:03
PROVIDERS: ATTEND Surgery
DX: K43.0 Incisional hernia with obstruction, without gangrene (principal); I10 Essential (primary) hypertension; K21.9 Gastro-esophageal reflux disease without esophagitis; Z79.899 Other long term (current) drug therapy
CPT/HCPCS: 94664

== ENCOUNTER 2020-02-07 05:31 | Outpatient (RCR) | payer BC ==
[~2020-02-07] VITALS: Ht 188 cm; Wt 97.7 kg
[~2020-02-07 05:31] MED LIST changes: +ACHD5005 PO; +ALPR0.5T7 PO; +AMLO-250 PO; +AMLO-251 PO; -AMLO10TA6 PO; -AMLO5TAB7 PO; +CARI1.5C PO; +GABA-486 PO; +ONDN4T PO; -TAMS0.4C98 PO; +TEMA30CA PO; +TMSL.4C PO; +TRAM50TA3 PO
== END 2020-02-07 09:56 | disposition home or self-care (01) ==
LOC: PREOP 05:31
PROVIDERS: ATTEND Surgery
DX: Z01.812 Encounter for preprocedural laboratory examination (principal); Z20.828 Contact with and (suspected) exposure to other viral communicable diseases
CPT/HCPCS: 87635

== ENCOUNTER 2020-02-10 08:08 | Day surgery (SDC) | payer BC ==
[2020-02-10] VITALS (13 sets, daily range): BP systolic 146–189; BP diastolic 101–134
[~2020-02-10] VITALS: Ht 188 cm; Wt 97.7 kg
[2020-02-10] MEDS ORDERED: SODIUM BICARB 8.4% 50 MEQ/50 ML (ABBOTT) SYR INJ ONE (08:09)
[2020-02-10] MEDS ORDERED: AMIODARONE (OMNICELL DRIP KIT) 150 MG/3 ML IV ONE (08:09)
[2020-02-10] MEDS ORDERED: CALCIUM CHLORIDE 1 GM/10 ML (IMS) SYR INJ ONE (08:09)
[2020-02-10] MEDS ORDERED: AMIODARONE 450 MG/9 ML (CORDARONE) VIAL IV ONE (08:09)
[2020-02-10] MEDS ORDERED: EPINEPHrine 0.1 MG/ML 10 ML (HOSPIRA) SYR IJ ONE (08:09)
[2020-02-10] MEDS ORDERED: ATROPINE INJECTION 1 MG/10 ML SYR (ABBOTT) INJ ONE (08:09)
[2020-02-10] MEDS ORDERED: BUP/EPI 0.5% 1:200,000 (MARCAINE) 10ML VIAL IJ ONE (08:22)
[2020-02-10 08:48] LABS: BASOPHILS # (AUTO) 0.1 10^3/uL (0.0-0.1); BASOPHILS % (AUTO) 1 % (0-10); EOSINOPHILS # (AUTO) 0.2 10^3/uL (0.0-0.3); EOSINOPHILS % (AUTO) 2 % (0-10); HEMATOCRIT 45 % (40-54); HEMOGLOBIN 15.4 g/dL (13.3-17.7); LYMPHOCYTES # (AUTO) 1.8 10^3/uL (1.0-4.0); LYMPHOCYTES % (AUTO) 18 % (12-44); MEAN CORPUSCULAR HEMOGLOBIN 33 pg (25-34); MEAN CORPUSCULAR HGB CONC 34 g/dL (32-36); MEAN CORPUSCULAR VOLUME 97 fL (80-99); MEAN PLATELET VOLUME 9.7 fL (9.0-12.2); MONOCYTES # (AUTO) 0.8 10^3/uL (0.0-1.0); MONOCYTES % (AUTO) 8 % (0-12); NEUTROPHILS # (AUTO) 7.2 10^3/uL (1.8-7.8); NEUTROPHILS % (AUTO) 71 % (42-75); PLATELET COUNT 302 10^3/uL (130-400); WHITE BLOOD COUNT 10.1 10^3/uL (4.3-11.0)
[2020-02-10] MEDS ORDERED: ceFAZolin 2 GM IV Premixed 50 ML IV ONE (09:00)
[2020-02-10] MEDS ORDERED: ROCURONIUM 10 MG/ML 5 ML SYRINGE IV ONE (09:11)
[2020-02-10] MEDS ORDERED: PROPOFOL INJECTION 50 ML IV ONE ×2 (09:11→11:24)
[2020-02-10] MEDS ORDERED: fentaNYL INJECTION 100 MCG/2 ML AMP ONE (09:11)
[2020-02-10] MEDS ORDERED: LIDOCAINE PF 2% 5 ML (XYLOCAINE) VIAL ONE (09:11)
[2020-02-10] MEDS ORDERED: SEVOFLURANE (ULTANE) 15 ML INHAL SOLN ONE ×3 (09:11→11:16)
[2020-02-10] MEDS ORDERED: NEOSTIGMINE 3 MG/3 ML VIAL ONE (09:12)
[2020-02-10] MEDS ORDERED: GLYCOPYRROLATE 0.2 MG/ML (ROBINUL) 2 ML VIAL ONE (09:12)
[2020-02-10] MEDS: LACTATED RINGERS 1,000 ML IV PRN ×3 (09:19→12:17)
--- NOTE | 2020-02-10 10:12 | Progress Note-Pre Operative ---
Pre-Operative Progress Note H&P Reviewed The H&P was reviewed, patient examined and no changes noted. Date Seen by Provider: Feb 10, 2020 Time Seen by Provider: 10:11 Date H&P Reviewed: Feb 10, 2020 Time H&P Reviewed: 10:11 Pre-Operative Diagnosis: recurrent incisional hernia KEAGAN MAYA DO Feb 10, 2020 10:11
[2020-02-10] MEDS ORDERED: fentaNYL INJECTION 100 MCG/2 ML AMP IVP ONE (10:30)
[2020-02-10] MEDS ORDERED: ONDANSETRON 4 MG/2 ML (SDV) Z0FRAN IVP PRN (10:30)
[2020-02-10] MEDS ORDERED: morphine INJ 10 MG/ML 1ML (SYR OR VIAL) IVP ONE (10:30)
[2020-02-10] MEDS ORDERED: MEPERIDINE (DEMEROL) INJ 50 MG/ML IVP ONE (10:30)
[2020-02-10] MEDS ORDERED: morphine INJ 10 MG/ML 1ML (SYR OR VIAL) ONE (10:50)
[2020-02-10] MEDS ORDERED: LABETALOL HCL 20 MG/4 ML VIAL ONE ×3 (11:25→15:15)
[2020-02-10] MEDS ORDERED: HYDROcodone/APAP 5 MG/325 MG (LORTAB) TAB PO PRN (11:45)
[2020-02-10] MEDS ORDERED: HYDR-4226 PO (11:48)
[2020-02-10] MEDS ORDERED: DOCU-143 PO (11:48)
--- NOTE | 2020-02-10 11:51 | Discharge Inst-Simple/Standard ---
Discharge Inst-Standard Discharge Medications New, Converted or Re-Newed RX: RX on Chart Patient Instructions/Follow Up Plan of Care/Instructions/FU: 3 weeks B[place]on Activity as Tolerated: No Discharge Diet: Regular Diet Other Inst to Patient Follow up Appt: Make appointment for 3 week. Instructions: No lifting greater than 10 pounds. No strenuous activity. May shower in 24 hours, no tub bath or soaking. Use incentive spirometer at home as directed. No Smoking Skin/Wound Care: You have enrique. Change bandages every 24 hours and as needed. Keep area clean and dry. IF you don't need bandage after 48 hours (no drainage) can leave open to air. Wear abdominal binder for comfort. Symptoms to Report: Appetite Changes, Extremity Discoloration, Numbness/Tingling, Swelling Increased, Bleeding Excessive, Eyesight Changes, Pain Increased, Urine Color Change, Constipation(Persistent), Fever over 101 degree F, Pain/Pressure in chest, Urinating Difficulty, Cough Up/Vomit Blood, Heart Beat Irreg/Pounding, Pain/Pressure in jaw, Vaginal Bleeding Increase, Cramps in feet or legs, Lightheadedness, Pain/Pressure in shoulder, Diarrhea(Persistent), Memory Changes Suddenly, Questions/Concerns, Weight gain consecutive days, Dizziness/Fainting, Nausea/Vomiting, Shortness of Breath, Weight gain over 2 pounds If questions or concerns contact your physician Or seek help at emergency department. KEAGAN MAYA DO Feb 10, 2020 11:50
--- NOTE | 2020-02-10 11:56 | Progress Note-Post Operative ---
Post-Operative Progess Note Surgeon (s)/Wool Puller (s) Surgeon KEAGAN MAYA DO Wool Puller: Dr. Payton to assist in retraction dissection and closure. Pre-Operative Diagnosis recurrent incisional hernia Post-Operative Diagnosis recurrent incarcerated incisional hernia Procedure & Operative Findings Date of Procedure 02/10/20 Procedure Performed/Findings PROCEDURE: laparoscopic recurrent incarcerated incisional hernia repair COMPLICATIONS: None. INDICATIONS: The patient is a 55, male with a recurrent incisional hernia, which has continued to increase in size and cause discomfort. The patient was explained the risk and benefits of the procedure and wished to proceed with the procedure. Consent was signed on the chart. DESCRIPTION OF PROCEDURE: The patient was taken into the operating suite, prepped and draped in sterile fashion. Surgical pause was performed. Local anesthetic was infiltrated in left upper quadrant. A 15 blade scalpel was used to make a small skin incision. Cautery was used to dissect down to the fascia, which was then scored and divided the muscle, went through the posterior sheath and a balloon trocar was inserted into the abdomen. The abdomen was then insufflated. Incarcerated incisional hernia just to the right side of midline was present with bowel and omentum stuck through defect. A 5 mm trocar was placed in the right lower quadrant and a 5 mm trocar was placed in left lower quadrant. Two 5 mm trochars were placed in the right upper quadrant as well. The defect was then closed using 1-0 looped PDS through a small incision that was made over defect. Echo Ventralight mesh was then inserted prior to closure of the hernia defect. The balloon was inflated on the mesh. Circumferential tacks were placed with a SecureStrap Tacker. The balloon was then removed and inner crown was created as well. The mesh was tacked with pressure being decreased. The 12 mm fascial defect was then closed using 0 Vicryl. The abdomen was then desufflated,the trocars were removed. The skin was then closed using enrique. The abdomen was washed and dried and sterile bandages applied. The patient tolerated procedure well without any complications. He was taken to recovery room in stable condition. Anesthesia Type general Estimated Blood Loss Estimated blood loss (mL): minimal Specimens/Packing Specimens Removed KEAGAN Luna DO Feb 10, 2020 11:56
[2020-02-10] MEDS ORDERED: LABETALOL HCL 100 MG/20 ML VIAL IV ONE (12:15)
[2020-02-10] MEDS ORDERED: HYDROmorphone 2 MG/ML VIAL (DILAUDID) ONE (12:34)
[2020-02-10] MEDS ORDERED: hydrALAZINE (APESOLINE) 20 MG/ML VIAL ONE (12:34)
[2020-02-10] MEDS ORDERED: HYDROmorphone 2 MG/ML VIAL (DILAUDID) IV ONE (12:45)
[2020-02-10] MEDS ORDERED: hydrALAZINE (APESOLINE) 20 MG/ML VIAL IV ONE (12:45)
--- NOTE | 2020-02-10 13:36 | Anesthesia-General Post-Op ---
General Patient Condition Mental Status/LOC: Same as Preop Cardiovascular: Satisfactory Nausea/Vomiting: Absent Respiratory: Satisfactory Pain: Controlled Complications: Absent Post Op Complications Complications diastolic bp 100-110 even after labetolol and hydralazine iv. this number however is the same as his preop diastolic BP. Follow Up Care/Instructions Patient Instructions None needed. Anesthesia/Patient Condition Patient Condition Patient is doing well, no complaints, stable vital signs, no apparent adverse anesthesia problems. No complications reported per nursing. MARGY AMATO CRNA Feb 10, 2020 13:36
--- NOTE | 2020-02-10 15:05 | NUR ---
BP 170/130. NOTIFIED ANESTHESIA. NEW ORDER FOR LABETALOL FROM Dilia NIETO CRNA. 1520: LABETALOL 5 MG IV GIVEN.
[2020-02-10] MEDS ORDERED: LABETALOL HCL 20 MG/4 ML VIAL IV ONE (15:15)
--- NOTE | 2020-02-10 16:05 | NUR ---
ASSUMED CARE OF PT FROM Obdulia MATHEWS RN. B/P 183/133. PT ADMITS TO BEING ANXIOUS, REPORTS SURGICAL SITE PAIN LEVEL 3-4 AND STATES THIS IS VERY TOLERABLE. ABDOMINAL BINDER ON, MOVES EASILY. STATES HE WANTS TO GO HOME, DOES NOT WANT TO BE ADMITTED. STATES HE IS FEARFUL OF GETTING CORONAVIRUS IN HOSPITAL SETTING. ALSO HAS HISTORY OF ANXIETY AND HAD BEEN ON VRAYLAR, WITH LAST DOSE BEING 02/08/20. STATES HE CAN NO LONGER AFFORD THIS MEDICATION, SO DID NOT GET A REFILL. LAST DOSE OF XANEX 0.5 MG REPORTED TO BE YESTERDAY, 02/09/20.
--- NOTE | 2020-02-10 16:20 | NUR ---
CONTACTED DR MAYA, CONDITION REPORT GIVEN. ORDERS RECEIVED.
[2020-02-10] MEDS ORDERED: HYDROCHLOROTHIAZIDE 12.5 MG (HCTZ) CAP PO ONE (16:30)
[2020-02-10] MEDS ORDERED: lisINopril 10 MG (PRINIVIL) TABLET PO ONE (16:30)
[2020-02-10] MEDS ORDERED: ALPRAZolam 0.5 MG (XANAX) TAB PO ONE (16:30)
--- NOTE | 2020-02-10 16:30 | NUR ---
CALL RECEIVED FROM DR MAYA WITH INSTRUCTIONS TO CALL IN B/P MED TO PT'S PHARMACY AND FOR DOSE TO BE GIVEN HERE, WELL FOLLOW UP APPOINTMENT SCHEDULED FOR PT WITH HIS PCP TOMORROW AT 1:15 PM.
--- NOTE | 2020-02-10 16:42 | NUR ---
XANEX 0.5 MG GIVEN PO AND LISINOPRIL 10 MG AND HYDROCLOROTHIAZIDE 12.5 MG GIVEN PO.
--- NOTE | 2020-02-10 17:45 | NUR ---
RESTING QUIETLY IN BED WITH EYES CLOSED, AWAKENS EASILY. RATES ABDOMINAL SURGICAL SITE PAIN 2. AGAIN EXPRESSED CONCERN OVER NOT WANTING TO BE ABLE TO BE DISMISSED. B/P 171/129, PULSE 110. CURRENTLY PICKING UP PRESCRIPTIONS. WILL RECHECK B/P IN APPROX 30 MIN. Addendum: 02/10/20 at 5 by NAVEED IVORY RN CORRECTION: "AGAIN EXPRESSED CONCERN OVER WANTING TO BE ABLE TO BE DISMISSED."
--- NOTE | 2020-02-10 18:30 | NUR ---
B/P 179/134, PULSE 119. PT STATES "I'M JUST LAYING HERE FRETTING ABOUT WANTING TO GO HOME. I DO NOT WANT TO STAY." CONTACTED DR MAYA. INSTRUCTED TO OFFER ADMISSION FOR OBSERVATION WITH EXPLANATION OF RISKS FOR GOING HOME, BUT TO PROCEED WITH DISMISSAL IF PT REFUSED ADMISSION.
--- NOTE | 2020-02-10 19:05 | NUR ---
OBSERVATION ADMISSION OFFERED WITH THOROUGH DISCUSSION ABOUT HYPERTENSION RISK FACTORS SUCH STROKE, HEART ATTACK, INCREASED RISK FOR BLEEDING AND SIGNS AND SYMPTOMS TO BE AWARE OF. PT REFUSED ADMISSION, PT AND VERBALIZED UNDERSTANDING OF RISK FACTORS AND SIGNS AND SYMPTOMS TO WATCH FOR, AND ALSO VERBALIZED UNDERSTANDING OF NEED TO KEEP APPOINTMENT WITH Mariama VENCES APRN, SCHEDULED FOR 02/11/20 AT !:15 PM. PT'S HAS PICKED UP LISINOPRIL/HCTZ PRESCRIPTION AND STATE PT WILL TAKE DOSE PRESCRIBED TOMORROW AM. Addendum: 02/10/20 at 1928 by NAVEED IVORY RN PT AND ALSO VERBALIZE UNDERSTANDING OF NEED TO SEEK IMMEDIATE MEDICAL CARE/EMS FOR ANY ADVERSE SIGNS OR SYMPTOMS OR CONCERNS.
--- NOTE | 2020-02-12 01:08 | CONSULTATION REPORT ---
DATE OF SERVICE: ATTENDING SEPTIC [employer] TRUCK DRIVER: Ksenia Garcia APRN HISTORY OF PRESENT ILLNESS: The patient is a 55-year-old male, who underwent a laparoscopic incarcerated recurrent ventral abdominal incisional hernia repair yesterday. He presented to the Emergency Department with some abdominal pain; however, felt more short of breath as well as tachycardic. From his labs, it also looks that he is severely dehydrated and also does have an elevated creatinine of 2.6. A CT scan of the abdomen was performed, which did show a small amount of free air as well as free fluid as well as a slightly dilated proximal small bowel. He does not report any fever or chills and is nauseous; however, has not vomited. PAST MEDICAL HISTORY: Hypertension, nephrolithiasis, gastroesophageal reflux disease, diverticulosis, hiatal hernia. PAST SURGICAL HISTORY: Colon resection, open reduction and internal fixation, lumbar vertebrae. ALLERGIES: LEVOFLOXACIN, SULFA, CIPROFLOXACIN, METRONIDAZOLE and MIDAZOLAM. MEDICATIONS: Alprazolam, baclofen, gabapentin, hydrocodone, temazepam, tramadol. SOCIAL HISTORY: Positive smoke, negative alcohol. VITAL SIGNS: Temperature 36.4, blood pressure 109/64, pulse 133, respirations 45, pulse ox 96% on 3 liters nasal cannula. REVIEW OF SYSTEMS: This is a well-nourished male, who was a slightly guarded secondary to the shortness of breath and tachycardia. He does report some abdominal pain; however, not severe and may be related to postoperative pain. He also reports some mild nausea; however, no vomiting. He has not had a bowel movement since surgery. No fever, chills, no recent inadvertent weight loss. All other review of systems negative. PHYSICAL EXAMINATION: CHEST: Few scattered rales bilaterally. HEART: Regular, no murmurs. EXTREMITIES: No lower extremity edema, negative Homans sign. HEENT: No scleral icterus. NECK: No cervical lymphadenopathy. ABDOMEN: Soft. There is pre-incisional discomfort upon palpation. Wounds appear to be intact. There does not appear to be any recurrent hernia. SKIN: Warm, dry. LABORATORY DATA: WBC 30.2, hemoglobin 19.2, hematocrit 56, platelets 454, BUN 28, creatinine 2.64. Lactic acid 5.67. ASSESSMENT AND PLAN: A 55-year-old male with shortness of breath, tachycardia as well as profound dehydration. He did undergo a noncontrast CT scan of the abdomen, which showed small amount of free air as well as fluid, which is more consistent with post-surgical changes. The patient will also need to have a spiral CT scan of the chest to rule out pulmonary embolism; however, we will need adequate hydration beforehand. For now, we will continue close observation and he will be admitted in the ICU and we will start him on broad spectrum antibiotic as well as IV hydration. If his clinical status worsens or diagnostic imaging indicates a worsening free air. This may be related to a viscus perforation and in this case, so the patient will need exploration. Job ID: [id number] DocumentID: [id number] Dictated Date: 02/11/2020 19:32:49 Pinion Sorter Date: 02/11/2020 20:30:44 Dictated By: RADHA MORALES MD MTDD
== END 2020-02-10 19:05 | disposition home or self-care (01) ==
LOC: SDC 08:08
PROVIDERS: ATTEND Surgery
DX: K43.0 Incisional hernia with obstruction, without gangrene (principal); I10 Essential (primary) hypertension; K21.9 Gastro-esophageal reflux disease without esophagitis; Z11.2 Encounter for screening for other bacterial diseases; Z88.2 Allergy status to sulfonamides; Z88.1 Allergy status to other antibiotic agents; Z88.8 Allergy status to other drugs, medicaments and biological substances; Z79.899 Other long term (current) drug therapy; Z86.010 Personal history of colon polyps; Z87.19 Personal history of other diseases of the digestive system
CPT/HCPCS: 49657; 85025; 87081; C1781; 36415

== ENCOUNTER 2020-02-11 15:08 | Inpatient (IN) | payer BC ==
[~2020-02-11] VITALS: Ht 187.9 cm; Wt 136.0 kg
[~2020-02-11 15:08] MED LIST changes: +DOCU-143 PO; +HYDR-4226 PO
[2020-02-11] MEDS ORDERED: LORazepam INJ 2 MG/ML (ATIVAN) VIAL IVP STA (15:49)
[2020-02-11] MEDS ORDERED: fentaNYL INJECTION 100 MCG/2 ML AMP IVP STA (15:49)
[2020-02-11 15:57] LABS: HEMATOCRIT 56 % (40-54); HEMOGLOBIN 19.2 g/dL (13.3-17.7); MEAN CORPUSCULAR HEMOGLOBIN 33 pg (25-34); MEAN CORPUSCULAR HGB CONC 35 g/dL (32-36); MEAN CORPUSCULAR VOLUME 96 fL (80-99); MEAN PLATELET VOLUME 9.9 fL (9.0-12.2); PLATELET COUNT 454 10^3/uL (130-400)
[2020-02-11 15:59] LABS: WHITE BLOOD COUNT 30.2 10^3/uL (4.3-11.0)
[2020-02-11] MEDS ORDERED: NS 100 ML (IVPB) BAG IV ONE (16:00)
[2020-02-11] MEDS ORDERED: IOHEXOL 350 MG/ML 100 ML (OMNIPAQUE 350) VIAL IV ONE (16:00)
[2020-02-11] MEDS ORDERED: NS IV 1000 ML 1,000 ML IV SCH (16:00)
[2020-02-11] MEDS ORDERED: HOLD METFORMIN - RECEIVED CONTRAST 20 ML VIAL IV SCH (16:00)
[2020-02-11] MEDS ORDERED: NS IV 1000 ML 1,000 ML IV STA (16:03)
[2020-02-11 16:08] LABS: POTASSIUM 4.2 MMOL/L (3.6-5.0)
[2020-02-11 16:09] LABS: CALCIUM 10.6 MG/DL (8.5-10.1)
[2020-02-11 16:13] LABS: CREATININE SERUM 2.64 MG/DL (0.60-1.30)
[2020-02-11] MEDS ORDERED: HEParin DRIP 25000 UNIT/500ML 500 ML IV ONE (16:18)
[2020-02-11] MEDS ORDERED: HEParin 1000 UNIT/ML (10ML VIAL) FOR BOLUS ONE (16:18)
--- NOTE | 2020-02-11 16:23 | ED General ---
General Chief Complaint: General Problems/Pain Stated Complaint: ELEVATED HEART RATE Nursing Triage Note: pt sent over from pcp for high hr. Pt went to doc for post op hernia repair pain. Upon arrival to ed HR is 150's, diaphoretic. Pain 4/10 Nursing Sepsis Screen: No Definite Risk Source of Information: Patient Exam Limitations: No Limitations History of Present Illness Date Seen by Provider: Feb 11, 2020 Time Seen by Provider: 15:30 Initial Comments 55-year-old male presents to the emergency department today with a chief complaint of palpitations, heart racing. Patient had recent ventral abdominal hernia repair 24 hours ago. Patient was scheduled for a routine follow-up with his primary care doctor today and went to the clinic and was found to be profoundly tachycardic with a heart rate in the 150s. Patient was sent to the emergency department for further evaluation and treatment. Patient presents a little tachypneic, subjectively short of breath. He does speak in complete sentences and does not demonstrate any increased work of breathing. Heart rate is again noticed to be 150s. Blood pressure is adequate with a systolic of 140s. Oxygen saturations on room air are anywhere from 94 to 99%. Patient denies any fevers, chills, productive cough. No unexpected abdominal discomfort. He rates his pain at a "4". He denies any leg pain, calf tenderness, GI or symptoms. Patient had a COVID-19 test on February 06 that was negative. Patient has no history of pulmonary embolism no family history of pulmonary embolism. All other review of systems reviewed and negative except as stated above. Timing/Duration: 12-24 Hours Severity: Severe Associated Systoms: Shortness of Air, Other (abdominal pain) Allergies and Home Medications Allergies Coded Allergies: levofloxacin (Verified Allergy, Mild, HIVES, 02/10/20) Sulfa (Sulfonamide Antibiotics) (Verified Allergy, Unknown, HIVES, 04/10/18) ciprofloxacin (Verified Allergy, Unknown, itching, 04/10/18) metronidazole (Verified Allergy, Unknown, itching, 04/10/18) midazolam (Verified Adverse Reaction, Unknown, "made me crazy for a week", 04/10/18) Home Medications Alprazolam 0.5 Mg Tablet, 0.5 MG PO BID PRN for ANXIETY, (Reported) Baclofen 10 Mg Tablet, 10 MG PO TID PRN for MUSCLE CRAMPS, (Reported) Cariprazine Hydrochloride 1.5 Mg Capsule, 1.5 MG PO DAILY, (Reported) Docusate Sodium 100 Mg Capsule, 100 MG PO BID, (Reported) Gabapentin 100 Mg Capsule, 100 MG PO BID PRN for PAIN-BREAKTHROUGH, (Reported) Hydrocodone/Acetaminophen 1 Each Tablet, 1-2 EA PO Q4H PRN for PAIN-MODERATE (5- 7), (Reported) Ibuprofen 200 Mg Tablet, 400-600 MG PO Q8H PRN for PAIN-MILD (1-4), (Reported) Lisinopril/Hydrochlorothiazide 1 Each Tablet, 1 EA PO DAILY, (Reported) Naproxen Sodium 220 Mg Capsule, 220-440 MG PO Q8H PRN for PAIN-MILD (1-4), (Reported) Ondansetron HCl 4 Mg Tab, 4 MG PO Q4H PRN for NAUSEA/VOMITING, (Reported) Temazepam 30 Mg Capsule, 30 MG PO HS, (Reported) Tramadol HCl 50 Mg Tablet, 50 MG PO Q8H PRN for PAIN-MILD (1-4), (Reported) Patient Home Medication List Home Medication List Reviewed: Yes Review of Systems Review of Systems Constitutional: no symptoms reported EENTM: no symptoms reported Respiratory: short of breath (mild) Cardiovascular: palpitations Gastrointestinal: RLQ, LLQ Genitourinary: no symptoms reported Musculoskeletal: no symptoms reported Skin: other (diaphoresis) Psychiatric/Neurological: Anxiety Past [id number]-Iqvkuv Hx Patient Social History Alcohol Use: Rarely Uses Recreational Drug Use: No Smoking Status: Never a Smoker Recent Foreign Travel: No Contact w/Someone Who Travel: No Recent Infectious Disease Expo: No Recent Hopitalizations: No Physical Abuse: No Sexual Abuse: No Immunizations Up To Date Tetanus Booster (TDap): Unknown PED Vaccines UTD: No Seasonal Allergies Seasonal Allergies: No Past Medical History Surgeries: Yes (LUMBAR BACK SURGERY, RUPTURED TESTICLE, colon resection, blocked ureter, ) Bladder Surgery, Bowel Surgery Respiratory: No Currently Using CPAP: No Currently Using BIPAP: No Cardiac: Yes Hypertension Neurological: No Reproductive Disorders: No Sexually Transmitted Disease: No HIV/AIDS: No Genitourinary: Yes (sx for blocked uterer) Kidney Stones Gastrointestinal: Yes (colon resection) Abdominal Hernia, Gastroesophageal Reflux, Diverticulosis, Polyps, Hiatal Hernia Musculoskeletal: No Endocrine: No HEENT: No Loss of Vision: Denies Hearing Impairment: Denies Cancer: No Psychosocial: Yes Anxiety Integumentary: No Blood Disorders: No Adverse Reaction/Blood Tranf: No (N/A) Physical Exam Vital Signs Vital Signs - First Documented 02/11/20 02/11/20 02/12/20 15:29 18:19 04:00 Temp 36.4 Pulse 158 Resp 30 B/P (MAP) 127/83 (98) Pulse Ox 96 O2 Delivery Nasal Cannula O2 Flow Rate 3.00 FiO2 100 Capillary Refill : Less Than 3 Seconds Height, Weight, BMI Height: 6'2.00" Weight: 217lbs. 6.0oz. [id number]; 27.00 BMI Method: General Appearance: WD/WN, Anxious, Moderate Distress Eyes: Bilateral Eye Normal Inspection, Bilateral Eye PERRL, Bilateral Eye EOMI Neck: Normal Inspection Respiratory: Chest Non Tender, Lungs Clear, Other (Slightly tachypneic) Cardiovascular: Regular Rate, Rhythm, Tachycardia Gastrointestinal: Normal Bowel Sounds, Other (Surgical scars noted on the anterior abdominal wall no surrounding erythema, expected tenderness) Extremity: Normal Inspection, Normal Range of Motion, Non Tender, No Calf Tenderness, No Pedal Edema; No Calf Tenderness, No Slow Capillary Refill Neurologic/Psychiatric: Alert, Oriented x3, No Motor/Sensory Deficits, Normal Mood/Affect Skin: Normal Color, Damp Focused Exam Lactate Level 02/14/20 00:38: Lactic Acid Level 3.74*H 02/14/20 06:00: Lactic Acid Level 3.92*H 02/14/20 08:09: Lactic Acid Level 3.63*H Lactic Acid Level Progress/Results/Core Measures Suspected Sepsis Recent Fever Within 48 Hours: No Infection Criteria Present: None New/Unexplained Altered Menta: No Sepsis Screen: No Definite Risk SIRS Temperature: Pulse: 158 Respiratory Rate: 30 Laboratory Tests 02/13/20 18:10: White Blood Count 9.9 02/14/20 00:38: White Blood Count 13.5H 02/14/20 06:00: White Blood Count 11.5H Blood Pressure 127 /83 Mean: 98 02/14/20 00:38: Lactic Acid Level 3.74*H 02/14/20 06:00: Lactic Acid Level 3.92*H 02/14/20 08:09: Lactic Acid Level 3.63*H Laboratory Tests 02/12/20 12:16: Total Bilirubin 0.7 02/13/20 05:50: Total Bilirubin 1.3H 02/13/20 18:10: Creatinine 3.99H, INR Comment 1.7H, Platelet Count 81L 02/14/20 00:38: Total Bilirubin 1.7H, Creatinine 4.20H, INR Comment 1.6H, Platelet Count 73L 02/14/20 06:00: Creatinine 4.43H, INR Comment 1.4, Platelet Count 55L Results/Orders Lab Results Laboratory Tests Test 02/12/20 14:07 02/12/20 15:02 02/12/20 16:08 02/12/20 16:10 Range/Units Glucometer 141 H 139 H 137 H 70-110 MG/DL Vancomycin Level Trough 13.5 10.0-20.0 UG/ML Test 02/12/20 17:03 02/12/20 18:00 02/12/20 18:06 02/12/20 18:49 Range/Units Glucometer 136 H 141 H 144 H 70-110 MG/DL White Blood Count 8.5 4.3-11.0 10^3/uL Red Blood Count 3.98 L 4.30-5.52 10^6/uL Hemoglobin 13.2 L 13.3-17.7 g/dL Hematocrit 41 40-54 % Mean Corpuscular Volume 102 H 80-99 fL Mean Corpuscular Hemoglobin 33 25-34 pg Mean Corpuscular Hemoglobin Concent 33 32-36 g/dL Red Cell Distribution Width 13.6 10.0-14.5 % Platelet Count 189 130-400 10^3/uL Mean Platelet Volume 10.3 9.0-12.2 fL Immature Granulocyte % (Auto) 1 % Neutrophils (%) (Auto) 86 H 42-75 % Lymphocytes (%) (Auto) 5 L 12-44 % Monocytes (%) (Auto) 7 0-12 % Eosinophils (%) (Auto) 0 0-10 % Basophils (%) (Auto) 1 0-10 % Neutrophils # (Auto) 7.2 1.8-7.8 10^3/uL Lymphocytes # (Auto) 0.5 L 1.0-4.0 10^3/uL Monocytes # (Auto) 0.6 0.0-1.0 10^3/uL Eosinophils # (Auto) 0.0 0.0-0.3 10^3/uL Basophils # (Auto) 0.0 0.0-0.1 10^3/uL Immature Granulocyte # (Auto) 0.1 0.0-0.1 10^3/uL Prothrombin Time 20.7 H 12.2-14.7 SEC INR Comment 1.7 H 0.8-1.4 Activated Partial Thromboplast Time 45 H 24-35 SEC Sodium Level 136 135-145 MMOL/L Potassium Level 4.5 3.6-5.0 MMOL/L Chloride Level 103 98-107 MMOL/L Carbon Dioxide Level 16 L 21-32 MMOL/L Anion Gap 17 H 5-14 MMOL/L Blood Urea Nitrogen 39 H 7-18 MG/DL Creatinine 3.38 #H 0.60-1.30 MG/DL Estimat Glomerular Filtration Rate 19 BUN/Creatinine Ratio 12 Glucose Level 146 H 70-105 MG/DL Lactic Acid Level 4.59 *H 0.50-2.00 MMOL/L Calcium Level 6.6 L 8.5-10.1 MG/DL Phosphorus Level 8.8 H 2.3-4.7 MG/DL Magnesium Level 2.2 1.6-2.4 MG/DL Test 02/12/20 20:03 02/12/20 20:05 02/12/20 21:11 02/12/20 22:10 Range/Units Glucometer 152 H 165 H 70-110 MG/DL Blood Gas Puncture Site RIGHT RADIAL LEFT RADIAL Blood Gas Patient Temperature 35.3 34.6 Arterial Blood pH 7.17 *L 7.19 *L 7.37-7.43 Arterial Blood Partial Pressure CO2 49 H 48 H 35-45 MMHG Arterial Blood Partial Pressure O2 237 H 208 H 79-93 MMHG Arterial Blood HCO3 18 L 18 L 23-27 MMOL/L Arterial Blood Total CO2 19.2 L 19.9 L 21.0-31.0 MMOL/L Arterial Blood Oxygen Saturation 99 99 94-100 % Arterial Blood Base Excess -9.8 L -9.0 L -2.5-2.5 MMOL/L Aristeo Test YES-POS ART LINE Blood Gas Ventilator Setting YES YES Blood Gas Inspired Oxygen 85% 70% Lactic Acid Level 5.52 *H 5.40 *H 0.50-2.00 MMOL/L Test 02/12/20 22:14 02/13/20 00:05 02/13/20 00:16 02/13/20 01:45 Range/Units Glucometer 169 H 171 H 70-110 MG/DL White Blood Count 11.7 H 4.3-11.0 10^3/uL Red Blood Count 3.81 L 4.30-5.52 10^6/uL Hemoglobin 12.6 L 13.3-17.7 g/dL Hematocrit 39 L 40-54 % Mean Corpuscular Volume 101 H 80-99 fL Mean Corpuscular Hemoglobin 33 25-34 pg Mean Corpuscular Hemoglobin Concent 33 32-36 g/dL Red Cell Distribution Width 13.5 10.0-14.5 % Platelet Count 155 130-400 10^3/uL Mean Platelet Volume 10.6 9.0-12.2 fL Immature Granulocyte % (Auto) 2 % Neutrophils (%) (Auto) 89 H 42-75 % Lymphocytes (%) (Auto) 3 L 12-44 % Monocytes (%) (Auto) 5 0-12 % Eosinophils (%) (Auto) 0 0-10 % Basophils (%) (Auto) 1 0-10 % Neutrophils # (Auto) 10.4 H 1.8-7.8 10^3/uL Lymphocytes # (Auto) 0.4 L 1.0-4.0 10^3/uL Monocytes # (Auto) 0.6 0.0-1.0 10^3/uL Eosinophils # (Auto) 0.0 0.0-0.3 10^3/uL Basophils # (Auto) 0.1 0.0-0.1 10^3/uL Immature Granulocyte # (Auto) 0.2 H 0.0-0.1 10^3/uL Neutrophils % (Manual) 16 % Lymphocytes % (Manual) 8 % Monocytes % (Manual) 15 % Metamyelocytes % 13 % Myelocytes % 13 % Band Neutrophils 35 % Toxic Granulation 4+ Prothrombin Time 21.4 H 12.2-14.7 SEC INR Comment 1.8 H 0.8-1.4 Activated Partial Thromboplast Time 46 H 24-35 SEC Blood Gas Puncture Site LEFT RADIAL LEFT RADIAL Blood Gas Patient Temperature 35.7 36.4 Arterial Blood pH 7.19 *L 7.18 *L 7.37-7.43 Arterial Blood Partial Pressure CO2 51 H 57 H 35-45 MMHG Arterial Blood Partial Pressure O2 194 H 157 H 79-93 MMHG Arterial Blood HCO3 19 L 21 L 23-27 MMOL/L Arterial Blood Total CO2 20.7 L 22.4 21.0-31.0 MMOL/L Arterial Blood Oxygen Saturation 99 99 94-100 % Arterial Blood Base Excess -8.1 L -6.6 L -2.5-2.5 MMOL/L Aristeo Test ART LINE ART LINE Blood Gas Ventilator Setting YES YES Blood Gas Inspired Oxygen 60% 50% Sodium Level 137 135-145 MMOL/L Potassium Level 4.4 3.6-5.0 MMOL/L Chloride Level 101 98-107 MMOL/L Carbon Dioxide Level 17 L 21-32 MMOL/L Anion Gap 19 H 5-14 MMOL/L Blood Urea Nitrogen 41 H 7-18 MG/DL Creatinine 3.56 H 0.60-1.30 MG/DL Estimat Glomerular Filtration Rate 18 BUN/Creatinine Ratio 12 Glucose Level 168 H 70-105 MG/DL Lactic Acid Level 5.48 *H 0.50-2.00 MMOL/L Calcium Level 6.5 L 8.5-10.1 MG/DL Phosphorus Level 9.7 H 2.3-4.7 MG/DL Magnesium Level 2.0 1.6-2.4 MG/DL Test 02/13/20 01:46 02/13/20 03:58 02/13/20 04:00 02/13/20 05:50 Range/Units Glucometer 164 H 154 H 70-110 MG/DL Blood Gas Puncture Site LEFT RADIAL Blood Gas Patient Temperature 36.2 Arterial Blood pH 7.21 *L 7.37-7.43 Arterial Blood Partial Pressure CO2 53 H 35-45 MMHG Arterial Blood Partial Pressure O2 126 H 79-93 MMHG Arterial Blood HCO3 21 L 23-27 MMOL/L Arterial Blood Total CO2 22.7 21.0-31.0 MMOL/L Arterial Blood Oxygen Saturation 99 94-100 % Arterial Blood Base Excess -5.7 L -2.5-2.5 MMOL/L Aristeo Test ART LINE Blood Gas Ventilator Setting YES Blood Gas Inspired Oxygen 40% White Blood Count 10.7 4.3-11.0 10^3/uL Red Blood Count 3.46 L 4.30-5.52 10^6/uL Hemoglobin 11.4 L 13.3-17.7 g/dL Hematocrit 35 L 40-54 % Mean Corpuscular Volume 100 H 80-99 fL Mean Corpuscular Hemoglobin 33 25-34 pg Mean Corpuscular Hemoglobin Concent 33 32-36 g/dL Red Cell Distribution Width 13.5 10.0-14.5 % Platelet Count 127 L 130-400 10^3/uL Mean Platelet Volume 11.0 9.0-12.2 fL Immature Granulocyte % (Auto) 2 % Neutrophils (%) (Auto) 88 H 42-75 % Lymphocytes (%) (Auto) 4 L 12-44 % Monocytes (%) (Auto) 6 0-12 % Eosinophils (%) (Auto) 0 0-10 % Basophils (%) (Auto) 1 0-10 % Neutrophils # (Auto) 9.4 H 1.8-7.8 10^3/uL Lymphocytes # (Auto) 0.5 L 1.0-4.0 10^3/uL Monocytes # (Auto) 0.6 0.0-1.0 10^3/uL Eosinophils # (Auto) 0.0 0.0-0.3 10^3/uL Basophils # (Auto) 0.1 0.0-0.1 10^3/uL Immature Granulocyte # (Auto) 0.2 H 0.0-0.1 10^3/uL Prothrombin Time 21.2 H 12.2-14.7 SEC INR Comment 1.8 H 0.8-1.4 Activated Partial Thromboplast Time 46 H 24-35 SEC Sodium Level 136 135-145 MMOL/L Potassium Level 4.5 3.6-5.0 MMOL/L Chloride Level 99 98-107 MMOL/L Carbon Dioxide Level 18 L 21-32 MMOL/L Anion Gap 19 H 5-14 MMOL/L Blood Urea Nitrogen 42 H 7-18 MG/DL Creatinine 3.65 H 0.60-1.30 MG/DL Estimat Glomerular Filtration Rate 18 BUN/Creatinine Ratio 12 Glucose Level 164 H 70-105 MG/DL Lactic Acid Level 5.33 *H 0.50-2.00 MMOL/L Calcium Level 6.2 L 8.5-10.1 MG/DL Corrected Calcium 7.4 L 8.5-10.1 MG/DL Phosphorus Level 9.5 H 2.3-4.7 MG/DL Magnesium Level 1.9 1.6-2.4 MG/DL Total Bilirubin 1.3 H 0.1-1.0 MG/DL Aspartate Amino Transf (AST/SGOT) 1063 #H 5-34 U/L Alanine Aminotransferase (ALT/SGPT) 612 #H 0-55 U/L Alkaline Phosphatase 41 40-136 U/L Ammonia 36 H 11-32 UMOL/L Total Protein 4.1 L 6.4-8.2 GM/DL Albumin 2.5 L 3.2-4.5 GM/DL Test 02/13/20 05:58 02/13/20 06:00 02/13/20 07:20 02/13/20 08:05 Range/Units Glucometer 165 H 176 H 183 H 70-110 MG/DL Blood Gas Puncture Site LEFT ARTLINE Blood Gas Patient Temperature 35.8 Arterial Blood pH 7.27 *L 7.37-7.43 Arterial Blood Partial Pressure CO2 44 35-45 MMHG Arterial Blood Partial Pressure O2 151 H 79-93 MMHG Arterial Blood HCO3 20 L 23-27 MMOL/L Arterial Blood Total CO2 21.5 21.0-31.0 MMOL/L Arterial Blood Oxygen Saturation 100 94-100 % Arterial Blood Base Excess -5.9 L -2.5-2.5 MMOL/L Aristeo Test ART LINE Blood Gas Ventilator Setting YES Blood Gas Inspired Oxygen 40% Test 02/13/20 09:15 02/13/20 10:04 02/13/20 11:01 02/13/20 11:46 Range/Units Glucometer 171 H 151 H 134 H 70-110 MG/DL White Blood Count 8.2 4.3-11.0 10^3/uL Red Blood Count 3.32 L 4.30-5.52 10^6/uL Hemoglobin 11.1 L 13.3-17.7 g/dL Hematocrit 33 L 40-54 % Mean Corpuscular Volume 99 80-99 fL Mean Corpuscular Hemoglobin 33 25-34 pg Mean Corpuscular Hemoglobin Concent 34 32-36 g/dL Red Cell Distribution Width 13.5 10.0-14.5 % Platelet Count 94 L 130-400 10^3/uL Mean Platelet Volume 10.6 9.0-12.2 fL Immature Granulocyte % (Auto) 4 % Neutrophils (%) (Auto) 86 H 42-75 % Lymphocytes (%) (Auto) 5 L 12-44 % Monocytes (%) (Auto) 4 0-12 % Eosinophils (%) (Auto) 0 0-10 % Basophils (%) (Auto) 1 0-10 % Neutrophils # (Auto) 7.0 1.8-7.8 10^3/uL Lymphocytes # (Auto) 0.4 L 1.0-4.0 10^3/uL Monocytes # (Auto) 0.4 0.0-1.0 10^3/uL Eosinophils # (Auto) 0.0 0.0-0.3 10^3/uL Basophils # (Auto) 0.1 0.0-0.1 10^3/uL Immature Granulocyte # (Auto) 0.4 H 0.0-0.1 10^3/uL Prothrombin Time 21.3 H 12.2-14.7 SEC INR Comment 1.8 H 0.8-1.4 Activated Partial Thromboplast Time 45 H 24-35 SEC Sodium Level 136 135-145 MMOL/L Potassium Level 4.2 3.6-5.0 MMOL/L Chloride Level 97 L 98-107 MMOL/L Carbon Dioxide Level 20 L 21-32 MMOL/L Anion Gap 19 H 5-14 MMOL/L Blood Urea Nitrogen 44 H 7-18 MG/DL Creatinine 3.90 H 0.60-1.30 MG/DL Estimat Glomerular Filtration Rate 16 BUN/Creatinine Ratio 11 Glucose Level 128 H 70-105 MG/DL Lactic Acid Level 6.08 *H 0.50-2.00 MMOL/L Calcium Level 6.1 L 8.5-10.1 MG/DL Phosphorus Level 9.0 H 2.3-4.7 MG/DL Magnesium Level 1.9 1.6-2.4 MG/DL Test 02/13/20 13:14 02/13/20 14:02 02/13/20 15:26 02/13/20 18:10 Range/Units Glucometer 143 H 133 H 129 H 70-110 MG/DL White Blood Count 9.9 4.3-11.0 10^3/uL Red Blood Count 3.42 L 4.30-5.52 10^6/uL Hemoglobin 11.3 L 13.3-17.7 g/dL Hematocrit 34 L 40-54 % Mean Corpuscular Volume 99 80-99 fL Mean Corpuscular Hemoglobin 33 25-34 pg Mean Corpuscular Hemoglobin Concent 33 32-36 g/dL Red Cell Distribution Width 13.4 10.0-14.5 % Platelet Count 81 L 130-400 10^3/uL Mean Platelet Volume 10.8 9.0-12.2 fL Immature Granulocyte % (Auto) 8 % Neutrophils (%) (Auto) 84 H 42-75 % Lymphocytes (%) (Auto) 3 L 12-44 % Monocytes (%) (Auto) 5 0-12 % Eosinophils (%) (Auto) 0 0-10 % Basophils (%) (Auto) 1 0-10 % Neutrophils # (Auto) 8.3 H 1.8-7.8 10^3/uL Lymphocytes # (Auto) 0.3 L 1.0-4.0 10^3/uL Monocytes # (Auto) 0.4 0.0-1.0 10^3/uL Eosinophils # (Auto) 0.0 0.0-0.3 10^3/uL Basophils # (Auto) 0.1 0.0-0.1 10^3/uL Immature Granulocyte # (Auto) 0.7 H 0.0-0.1 10^3/uL Prothrombin Time 20.2 H 12.2-14.7 SEC INR Comment 1.7 H 0.8-1.4 Activated Partial Thromboplast Time 43 H 24-35 SEC Sodium Level 137 135-145 MMOL/L Potassium Level 4.3 3.6-5.0 MMOL/L Chloride Level 96 L 98-107 MMOL/L Carbon Dioxide Level 21 21-32 MMOL/L Anion Gap 20 H 5-14 MMOL/L Blood Urea Nitrogen 45 H 7-18 MG/DL Creatinine 3.99 H 0.60-1.30 MG/DL Estimat Glomerular Filtration Rate 16 BUN/Creatinine Ratio 11 Glucose Level 125 H 70-105 MG/DL Lactic Acid Level 5.02 *H 0.50-2.00 MMOL/L Calcium Level 6.0 *L 8.5-10.1 MG/DL Phosphorus Level 8.5 H 2.3-4.7 MG/DL Magnesium Level 1.8 1.6-2.4 MG/DL Test 02/13/20 20:30 02/14/20 00:38 02/14/20 00:50 02/14/20 06:00 Range/Units Blood Gas Puncture Site LEFT RADIAL LEFT ART LINE Blood Gas Patient Temperature 36.0 36.6 Arterial Blood pH 7.33 *L 7.38 7.37-7.43 Arterial Blood Partial Pressure CO2 46 H 43 35-45 MMHG Arterial Blood Partial Pressure O2 104 H 117 H 79-93 MMHG Arterial Blood HCO3 24 25 23-27 MMOL/L Arterial Blood Total CO2 25.4 26.3 21.0-31.0 MMOL/L Arterial Blood Oxygen Saturation 98 98 94-100 % Arterial Blood Base Excess -1.4 0.4 -2.5-2.5 MMOL/L Aristeo Test ART LINE ART LINE Blood Gas Ventilator Setting YES YES Blood Gas Inspired Oxygen 40% 35% White Blood Count 13.5 H 11.5 H 4.3-11.0 10^3/uL Red Blood Count 3.37 L 3.08 L 4.30-5.52 10^6/uL Hemoglobin 11.1 L 10.2 L 13.3-17.7 g/dL Hematocrit 33 L 30 L 40-54 % Mean Corpuscular Volume 97 97 80-99 fL Mean Corpuscular Hemoglobin 33 33 25-34 pg Mean Corpuscular Hemoglobin Concent 34 34 32-36 g/dL Red Cell Distribution Width 13.4 13.3 10.0-14.5 % Platelet Count 73 L 55 L 130-400 10^3/uL Mean Platelet Volume 11.0 11.3 9.0-12.2 fL Immature Granulocyte % (Auto) 9 2 % Neutrophils (%) (Auto) 84 H 91 H 42-75 % Lymphocytes (%) (Auto) 3 L 2 L 12-44 % Monocytes (%) (Auto) 3 3 0-12 % Eosinophils (%) (Auto) 0 0 0-10 % Basophils (%) (Auto) 1 1 0-10 % Neutrophils # (Auto) 11.4 H 10.5 H 1.8-7.8 10^3/uL Lymphocytes # (Auto) 0.4 L 0.3 L 1.0-4.0 10^3/uL Monocytes # (Auto) 0.4 0.4 0.0-1.0 10^3/uL Eosinophils # (Auto) 0.0 0.0 0.0-0.3 10^3/uL Basophils # (Auto) 0.1 0.1 0.0-0.1 10^3/uL Immature Granulocyte # (Auto) 1.2 H 0.2 H 0.0-0.1 10^3/uL Prothrombin Time 19.8 H 17.4 H 12.2-14.7 SEC INR Comment 1.6 H 1.4 0.8-1.4 Activated Partial Thromboplast Time 44 H 42 H 24-35 SEC Sodium Level 139 138 135-145 MMOL/L Potassium Level 4.2 4.1 3.6-5.0 MMOL/L Chloride Level 97 L 97 L 98-107 MMOL/L Carbon Dioxide Level 22 24 21-32 MMOL/L Anion Gap 20 H 17 H 5-14 MMOL/L Blood Urea Nitrogen 48 H 50 H 7-18 MG/DL Creatinine 4.20 H 4.43 H 0.60-1.30 MG/DL Estimat Glomerular Filtration Rate 15 14 BUN/Creatinine Ratio 11 11 Glucose Level 126 H 112 H 70-105 MG/DL Lactic Acid Level 3.74 *H 3.92 *H 0.50-2.00 MMOL/L Calcium Level 6.0 *L 5.9 *L 8.5-10.1 MG/DL Corrected Calcium 7.4 L 8.5-10.1 MG/DL Phosphorus Level 7.8 H 6.6 H 2.3-4.7 MG/DL Magnesium Level 1.7 1.6 1.6-2.4 MG/DL Total Bilirubin 1.7 H 0.1-1.0 MG/DL Aspartate Amino Transf (AST/SGOT) 635 H 5-34 U/L Alanine Aminotransferase (ALT/SGPT) 532 #H 0-55 U/L Alkaline Phosphatase 49 40-136 U/L Total Protein 4.0 L 6.4-8.2 GM/DL Albumin 2.2 L 3.2-4.5 GM/DL Test 02/14/20 08:09 Range/Units Lactic Acid Level 3.63 *H 0.50-2.00 MMOL/L My Orders Medications Given in ED Vital Signs/I&O 02/14/20 02/14/20 02/14/20 02/14/20 01:49 02:00 02:09 02:31 Temp 36.7 Pulse 117 112 Resp 38 B/P (MAP) Pulse Ox 98 98 O2 Delivery Mechanical Ventilator Mechanical Ventilator Mechanical Ventilator O2 Flow Rate 21.00 21.00 30.00 FiO2 35 11/2/02/14/20 02/14/20 02/14/20 03:00 04:00 04:00 05:00 Temp 36.4 36.7 36.6 Pulse 105 101 108 Resp 26 25 26 B/P (MAP) Pulse Ox 98 97 96 O2 Delivery Mechanical Ventilator Mechanical Ventilator Mechanical Ventilator Mechanical Ventilator O2 Flow Rate 30.00 30.00 30.00 FiO2 30 02/14/20 02/14/20 02/14/20 02/14/20 06:00 06:50 07:00 08:00 Temp 36.4 36.3 Pulse 117 111 110 Resp 30 28 B/P (MAP) Pulse Ox 94 95 94 O2 Delivery Mechanical Ventilator Mechanical Ventilator Mechanical Ventilator O2 Flow Rate 30.00 30.00 FiO2 30 02/14/20 02/14/20 02/14/20 02/14/20 08:00 08:14 09:00 10:00 Temp 36.3 36.2 36.3 Pulse 104 100 100 105 Resp 25 26 26 25 B/P (MAP) Pulse Ox 89 97 94 97 O2 Delivery Mechanical Ventilator Mechanical Ventilator Mechanical Ventilator O2 Flow Rate 30.00 30.00 30.00 FiO2 30 02/14/20 02/14/20 02/14/20 02/14/20 11:00 11:17 12:00 12:00 Temp 36.4 36.4 Pulse 103 103 Resp 22 22 B/P (MAP) 108/60 108/60 Pulse Ox 83 83 O2 Delivery Mechanical Ventilator Mechanical Ventilator Mechanical Ventilator O2 Flow Rate 30.00 FiO2 30 30 Capillary Refill : Less Than 3 Seconds Blood Pressure Mean: 98 Progress Note : Time: 16:37 Progress Note 55-year-old male presents to the emergency room with a chief complaint of tachycardia and not feeling well. Patient is postop 24 hours ventral hernia repair. Evaluation today includes a physical exam, EKG, chest x-ray, basic laboratory studies to include procalcitonin CRP lactic acid. Patient of note has a lactic acid greater than 4 measuring at 6.6. Clinically the patient has pulmonary embolism. Heparin is started bolus and drip currently. Patient is hemodynamically stable except for his heart rate of 150. Oxygen saturations 92 to 97% on room air currently. Patient will be supplemented with 2 L per nasal cannula. Patient's anxiety has been treated with half a milligram of Ativan. He is tolerating this well. Patient verbalizes understanding of the treatment plan all questions are sought and answered. Patient will be admitted to the intensive care unit. At this time with his grossly elevated lactic acid I do not suspect sepsis as the patient has no infectious complaints nor findings consistent with an infection. I believe his lactic acidosis is as a result of his tachycardia related to pulmonary embolism. [address] Benitez on for hospitalist service. Would like me to add a procalcitonin and a D-dimer to the patient's laboratory studies. We have called the warehouse attendant to make sure that we can do a VQ scan tomorrow however this will only be a perfusion study as we are not doing ventilation studies during the Covid pandemic. This is fine. Also Dr. Benitez asked for Zosyn and vancomycin to be given to cover for any infectious process. Patient remains tachycardic he has placed on 2 L of oxygen per nasal cannula blood pressure continues to be good. Patient will be admitted to the ICU. He is made aware of the plan of care and is agreeable. All questions are sought and answered. 174 Dr. Benitez called back and request the CT abdomen and pelvis without contrast will also add a urinalysis as the patient's procalcitonin is elevated. Diagnostic Imaging Diagonstic Imaging: Xray Plain Films/CT/US/NM/MRI: chest Comments [facility], [place] NAME: MIKE DÍAZ [facility] REC#: [id number] PT STATUS: REG ER : 1965 PHYSICIAN: MAREN MAYS MD ADMIT DATE: 02/11/20/ER Draft Date of Exam:02/11/20 CHEST 1 VIEW, AP/PA ONLY PATIENT HISTORY: Tachycardia, tachypnea. TECHNIQUE: Single frontal view of the chest. COMPARISON: None FINDINGS: The lung volumes are low. No focal consolidation is seen. No large pleural effusion or pneumothorax is seen. The cardiomediastinal silhouette is normal in size and contour. No acute osseous abnormality is seen. IMPRESSION: Low lung volumes with no acute pulmonary abnormality seen. Dictated on workstation # [id number] Dict: 02/11/20 1651 Trans: 02/11/20 1657 [facility] [id number] Interpreted by: TIANNA SANTOS MD Electronically signed by: Critical Care Note Critical Care Start Time: 15:30 Stop Time: 16:54 Total Time (minutes) 60 minutes critical care time in this patient with profound tachycardia borderline hypoxia, anxiety, dyspnea. Evaluation and management of his tachycardia, fluid resuscitation, review of the medical record, discussion with hospitalist, initiation of heparin protocol, admission to the intensive care unit Departure Communication (Admissions) Time/Spoke to Admitting Phy: 16:[address] Burhc who accepts patient as inpatient to the ICU Impression Primary Impression: Tachyarrhythmia Additional Impressions: Acute renal failure Qualified Codes: N17.9 - Acute kidney failure, unspecified Leukocytosis, unspecified Disposition: 09 ADMITTED INPATIENT Condition: Stable Admissions Decision to Admit Reason: Admit from ER (General) Decision to Admit/Date: Feb 11, 2020 Time/Decision to Admit Time: 16:54 Departure-Patient Inst. Referrals: NO,LOCAL PHYSICIAN (PCP) Primary Care Physician SUNSHINE VENCES (Family) Primary Care Physician MAREN MAYS MD Feb 11, 2020 16:23
[2020-02-11] MEDS ORDERED: VANCOMYCIN 1000 MG/VIAL ONE ×2 (16:57→16:58)
--- NOTE | 2020-02-11 16:57 | Diagnostic Imaging Report ---
PATIENT HISTORY: Tachycardia, tachypnea. TECHNIQUE: Single frontal view of the chest. COMPARISON: None FINDINGS: The lung volumes are low. No focal consolidation is seen. No large pleural effusion or pneumothorax is seen. The cardiomediastinal silhouette is normal in size and contour. No acute osseous abnormality is seen. IMPRESSION: Low lung volumes with no acute pulmonary abnormality seen. Dictated by: Dictated on workstation # [id number]
[2020-02-11] MEDS ORDERED: NS (IVPB) 250 ML ONE (16:58)
[2020-02-11] MEDS ORDERED: WATER (STERILE) FOR INJECTION 20 ML ONE (16:59)
[2020-02-11] MEDS ORDERED: NS (IVPB) 100 ML ONE ×2 (16:59→17:12)
[2020-02-11] MEDS ORDERED: PIPERACILLIN/TAZO 4.5 GM VIAL (ZOSYN) IV ONE (16:59)
[2020-02-11] MEDS ORDERED: PIPERACILLIN/TAZOBACTAM (BULK) 4.5 GM in NS (IVPB) 100 ML IV ONE (17:00)
[2020-02-11] MEDS ORDERED: VANCOMYCIN INJECTION 1,000 MG in NS (IVPB) 250 ML IV SCH (17:00)
[2020-02-11 17:01] LABS: FIBRIN DEGRADATION PRODUCTS 3.1 UG/ML (0.00-0.49)
[2020-02-11 17:10] LABS: BASOPHILS % (AUTO) 0 % (0-10); EOSINOPHILS % (AUTO) 0 % (0-10); LYMPHOCYTES # (AUTO) 1.3 10^3/uL (1.0-4.0); LYMPHOCYTES % (AUTO) 4 % (12-44); MONOCYTES # (AUTO) 2.2 10^3/uL (0.0-1.0); MONOCYTES % (AUTO) 7 % (0-12); NEUTROPHILS % (AUTO) 88 % (42-75)
[2020-02-11 17:26] LABS: ANISOCYTOSIS SLIGHT; BAND NEUTROPHILS 8 %; BASOPHILS % (MANUAL) 0 %; EOSINOPHILS % (MANUAL) 0 %; LYMPHOCYTES % (MANUAL) 8 %; MONOCYTES % (MANUAL) 5 %; NEUTROPHILS % (MANUAL) 78 %; POLYCHROMASIA SLIGHT; REACTIVE LYMPHOCYTES 1 %
[2020-02-11 17:27] LABS: TOXIC GRANULATION/VACUOLAZATIO 1+
[2020-02-11] MEDS ORDERED: fentaNYL INJECTION 100 MCG/2 ML AMP IVP ONE (17:30)
--- NOTE | 2020-02-11 17:50 | NUR ---
PT TO CT SCAN BEFORE GOING TO UNIT
[2020-02-11] MEDS ORDERED: LACTATED RINGERS 1,000 ML IV SCH (18:15)
[2020-02-11] MEDS ORDERED: VANCOMYCIN 1 GM/NS 250 ML IVPB IV NR ×2 (18:33)
--- NOTE | 2020-02-11 18:43 | NUR ---
VANCOMYCIN DOSING: CrCl 37.6, ACT BW 93.5 KG PT RECEIVED 1 GM IN ED, ORDERED ADDITIONAL 1 GM FOR TOTAL LOADING DOSE OF 2 GM MAIN DOSE: 1,250 MG DAILY VANCOMYCIN TROUGH DUE ON 02/14/2020 @ 16:00 IF TROUGH > 20 HOLD 02/14/2020 17:00 DOSE
[2020-02-11] MEDS ORDERED: CATHETER FLUSH 10 ML SYR IV PRN (18:45)
--- NOTE | 2020-02-11 18:57 | Diagnostic Imaging Report ---
PROCEDURE: CT abdomen and pelvis without contrast. TECHNIQUE: Multiple contiguous axial images were obtained through the abdomen and pelvis without the use of intravenous contrast. Auto Exposure Controls were utilized during the CT exam to meet ALARA standards for radiation dose reduction. INDICATION: Leukocytosis, tachycardia, postoperative evaluation. COMPARISON: 02/26/2018 FINDINGS: Mild left basilar atelectasis. Tiny right pleural effusion with adjacent focal consolidation with air bronchograms within the right lower lobe. Cholecystectomy. The unenhanced liver and spleen are unremarkable. The adrenal glands are unremarkable. The pancreas is unremarkable. Suggestion of a 2.6 x 3.3 cm hypodensity involving the posterior aspect of the left kidney. It is unclear whether this is within the kidney itself or possibly underlying the renal capsule. This does appear to be a change from prior imaging from 2018. No hydronephrosis. Mild scattered vascular calcifications without aneurysmal dilatation of the abdominal aorta. Recent anterior midline abdominal wall surgery is present with surgical clips in place. Small amount of gas is identified along the incision site. Focal fluid is tracking along the right abdomen anteriorly measuring 6.5 x 1.2 cm with associated internal gas. Significant amount of low-density free fluid is noted throughout the abdomen and pelvis. This free fluid demonstrates Hounsfield units of between 8 and 12. Significant amount of free air is also identified throughout the abdomen and pelvis. Small fat-containing left inguinal hernia. The urinary bladder is unremarkable. Postsurgical changes are noted involving the distal sigmoid colon. Colonic diverticulosis. Given fluid and fat stranding throughout the abdomen and pelvis, evaluation for diverticulitis is severely limited. The appendix is unremarkable. Loops of proximal small bowel are mildly dilated measuring up to 3.7 cm, series 2, image 54. No definite transition point is seen. No significant adenopathy. Scattered osseous degenerative changes without acute osseous abnormality. IMPRESSION: 1. Significant amount of free air throughout the abdomen and pelvis. This is likely postsurgical given appearance of the anterior abdomen and reported history of recent surgery, though underlying bowel injury/perforation cannot completely be excluded. Recommend radiographic follow-up. 2. Recent midline anterior abdominal wall incision with a thin though elongated gas and fluid collection within the right anterolateral abdomen which may relate to developing abscess versus seroma. 3. Significant amount of free fluid throughout the abdomen and pelvis, nonspecific. This may simply relate to ascites. Developing phlegmon along the anterior abdominal wall cannot be excluded given predilection of the fluid at this location. 4. Crescentic hypodensity associated with the posterior aspect of the left kidney, not optimally evaluated, though does appear new since 2018. This may relate to a subcapsular hematoma of uncertain chronicity. Cystic lesion felt less likely. Renal ultrasound versus CT of the abdomen with contrast would help to further evaluate. 5. Dilated proximal small bowel without definite transition point. However, evaluation of the bowel is limited secondary to fluid and fat stranding. Recommend radiographic follow-up as developing bowel obstruction is not totally excluded.. 6. Small right pleural effusion with adjacent small right basilar consolidation. 7. Colonic diverticulosis though unable to evaluate for diverticulitis given significant fluid and fat stranding throughout the abdomen and pelvis. Findings discussed with Glenna Keane, the patient's nurse at 1838 02/11/2020. Dictated by: Dictated on workstation # [id number]
[2020-02-11] MEDS ORDERED: HEParin DRIP 25000 UNIT/500ML (FULL THERAPY) IV SCH (19:00)
[2020-02-11] MEDS ORDERED: HEParin 1000 UNIT/ML BOLUS (FULL THERAPY) IV PRN (19:00)
[2020-02-11] MEDS ORDERED: LACTATED RINGERS 1,000 ML IV ONE ×3 (19:00→20:45)
--- NOTE | 2020-02-11 19:24 | History & Physical-Hospitalist ---
History of Present Illness HPI/Chief Complaint Nain Espinoza is a 55 year old male who presented after an appointment with his primary care doctor revealed a significant tachycardia. Yesterday he underwent an incisional hernia repair with Dr. Waddell which was uncomplicated. He was found to be tachycardic to the 150s. He was sent to the emergency room. He reports abdominal pain around the incision which is 8/10. He denies any nausea or vomiting. He reports having chills last night but did not check his temperature. He reports shortness of breath, but he thinks this was due to the abdominal binder being very tight. He denies cough. He denies palpitations. He denies chest pain. Source: patient Exam Limitations: no limitations Date Seen 02/11/20 Time Seen by a Provider: 19:00 Attending Physician Hernando Knapp MD PCP No,Local Physician Referring Physician Date of Admission Feb 11, 2020 at 17:25 Home Medications & Allergies Home Medications Reviewed patient Home Medication Reconciliation performed by pharmacy medication reconciliations predictive maintenance technician and/or nursing. Patients Allergies have been reviewed. Allergies Allergies Coded Allergies levofloxacin (Verified Allergy, Mild, HIVES, 02/10/20) Sulfa (Sulfonamide Antibiotics) (Verified Allergy, Unknown, HIVES, 04/10/18) ciprofloxacin (Verified Allergy, Unknown, itching, 04/10/18) metronidazole (Verified Allergy, Unknown, itching, 04/10/18) midazolam (Verified Adverse Reaction, Unknown, "made me crazy for a week", 04/10/18) Past Rskydrp-Xxwlld-Bgvppb Hx Past Med/Social Hx: Reviewed Nursing Past Med/Soc Hx Patient Social History Alcohol Use: Rarely Uses Recreational Drug Use: No Smoking Status: Never a Smoker Recent Foreign Travel: No Contact w/other who traveled: No Recent Hopitalizations: No Recent Infectious Disease Expo: No Immunizations Up To Date Tetanus Booster (TDap): Unknown Pediatric: No Seasonal Allergies Seasonal Allergies: No Past Medical History Surgeries: Bladder Surgery, Bowel Surgery Currently Using CPAP: No Currently Using BIPAP: No Cardiac: Hypertension Reproductive: No Sexually Transmitted Disease: No HIV/AIDS: No Genitourinary: Kidney Stones Gastrointestinal: Abdominal Hernia, Gastroesophageal Reflux, Diverticulosis, Polyps, Hiatal Hernia Loss of Vision: Denies Hearing Impairment: Denies Psychosocial: Anxiety History of Blood Disorders: No Adverse Reaction to Blood Hernandez: No (N/A) Review of Systems Constitutional: chills EENTM: no symptoms reported Respiratory: short of breath Cardiovascular: no symptoms reported Gastrointestinal: abdominal pain Genitourinary: no symptoms reported Musculoskeletal: no symptoms reported Skin: no symptoms reported Psychiatric/Neurological: Anxiety Physical Exam Physical Exam Vital Signs Vital Signs - First Documented 02/11/20 02/11/20 15:29 18:19 Temp 36.4 Pulse 158 Resp 30 B/P (MAP) 127/83 (98) Pulse Ox 96 O2 Delivery Nasal Cannula O2 Flow Rate 3.00 Capillary Refill : Less Than 3 Seconds Height, Weight, BMI Height: 6'2.00" Weight: 217lbs. 6.0oz. 98.525181lv; 26.48 BMI Method: General Appearance: No Apparent Distress, WD/WN HEENT: PERRL/EOMI, Pharynx Normal Neck: Normal Inspection, Supple Respiratory: Lungs Clear, Normal Breath Sounds, No Respiratory Distress Cardiovascular: No Edema, Tachycardia (regular rhythm) Gastrointestinal: Soft, Abnormal Bowel Sounds (hypoactive), Distended; No Guarding, No Rebound; Tenderness Extremity: Normal Inspection, Non Tender, No Pedal Edema Neurologic/Psychiatric: Alert, Oriented x3, No Motor/Sensory Deficits, Normal Mood/Affect Skin: Normal Color, Warm/Dry Results Results/Procedures Labs Laboratory Tests 02/11/20 15:42 Patient resulted labs reviewed. Imaging: Reviewed Imaging Films, Reviewed Imaging Report Assessment/Plan Admission Diagnosis Septic shock Admission Status: Inpatient Order (span 2 midnights) Reason for Inpatient Admission: IV fluids and antibiotics Possible need for surgical intervention Possible PE Assessment and Plan Septic shock Lactic acidosis High anion gap metabolic acidosis Acute kidney injury s/p incisional hernia repair SIRS+ with tachycardia and leukocytosis CT Abdomen with free air, intraabdominal fluid, abscess vs seroma, dilated proximal small bowel WBC 30, Lactic acid 6, Procalcitonin 18 Cr 2.6 Chest xray unremarkable UA pending IV fluids 30 ml/kg bolus, then 150 ml/hr Vancomycin and Zosyn Blood cultures pending NPO May require NG tube for small bowel decompression Surgery consulted, Drs. Waddell and Bello notified, appreciate assistance Acute respiratory failure with hypoxia Supplemental oxygen as needed D-dimer 3 Unable to perform contrast CT due to renal failure V/Q ordered Heparin gtt Diagnosis/Problems Diagnosis/Problems (1) Septic shock Status: Acute (2) Lactic acidosis Status: Acute (3) CORBY (acute kidney injury) Status: Acute (4) High anion gap metabolic acidosis (5) S/P hernia surgery Status: Acute (6) Acute respiratory failure with hypoxia Status: Acute Clinical Quality Measures DVT/VTE Risk/Contraindication: Risk Factor Score Per Nursin RFS Level Per Nursing on Admit: 4+=Very High HERNANDO KNAPP MD Feb 11, 2020 19:23
[2020-02-11] MEDS: fentaNYL INJECTION 100 MCG/2 ML AMP IVP PRN ×2 (20:39→23:18)
[2020-02-11] MEDS ORDERED: LORazepam INJ 2 MG/ML (ATIVAN) VIAL ONE ×2 (21:25→22:13)
[2020-02-11] MEDS: NS IV 1000 ML 1,000 ML IV SCH (21:29)
[2020-02-11] MEDS ORDERED: LORazepam INJ 2 MG/ML (ATIVAN) VIAL IVP PRN (21:30)
--- NOTE | 2020-02-11 21:34 | NUR ---
DR KNAPP NOTIFIED OF PT PULSE RATE OF 150-160. ORDERS RECEIVED FOR BOLUS OF LR, AND REPEAT CBC AND BMP. DR KNAPP ALSO NOTIFIED OF PT BEING ANXIOUS. ORDERS ALSO RECEIVED FOR 0.5 MG ATIVAN Q4 PRN.
[2020-02-11 21:36] LABS: BASOPHILS % (AUTO) 0 % (0-10); EOSINOPHILS % (AUTO) 0 % (0-10); HEMATOCRIT 50 % (40-54); LYMPHOCYTES # (AUTO) 0.5 10^3/uL (1.0-4.0); LYMPHOCYTES % (AUTO) 6 % (12-44); MEAN CORPUSCULAR HEMOGLOBIN 33 pg (25-34); MEAN CORPUSCULAR HGB CONC 34 g/dL (32-36); MEAN CORPUSCULAR VOLUME 97 fL (80-99); MONOCYTES # (AUTO) 0.4 10^3/uL (0.0-1.0); MONOCYTES % (AUTO) 5 % (0-12); NEUTROPHILS # (AUTO) 7.5 10^3/uL (1.8-7.8); NEUTROPHILS % (AUTO) 88 % (42-75); PLATELET COUNT 301 10^3/uL (130-400); WHITE BLOOD COUNT 8.5 10^3/uL (4.3-11.0)
[2020-02-11 21:45] LABS: POTASSIUM 3.7 MMOL/L (3.6-5.0)
[2020-02-11 21:46] LABS: CALCIUM 8.5 MG/DL (8.5-10.1)
[2020-02-11 21:50] LABS: CREATININE SERUM 2.19 MG/DL (0.60-1.30)
[2020-02-11] MEDS ORDERED: LORazepam INJ 2 MG/ML (ATIVAN) VIAL IVP ONE (22:15)
[2020-02-11] MEDS: PIPERACILLIN/TAZO 4.5 GM/NS 100 ML IV SCH ×2 (22:24)
--- NOTE | 2020-02-11 22:32 | NUR ---
DR KNAPP NOTIFIED OF PT PULSE REMAINING 160S AND PT BEING DIAPHORETIC AND ASKING FOR SOMETHING TO HELP HIM SLEEP. ORDERS GIVEN FOR ONE TIME DOSE OF 0.5 MG ATIVAN.
--- NOTE | 2020-02-11 22:41 | NUR ---
E-ICU CONTACTED D/T PT PULSE BEING 150-160S. ORDERS GIVEN FOR 1 L BOLUS.
[2020-02-11] MEDS: LACTATED RINGERS 1,000 ML IV SCH (22:46)
--- NOTE | 2020-02-11 22:52 | Consultation - Surgery ---
History of Present Illness History of Present Illness Patient Consulted On(stefany/time) 02/11/20 20:10 Date Seen by Provider: Feb 11, 2020 Time Seen by Provider: 20:10 History of Present Illness Patient is a 55 year old male who underwent laparoscopic recurrent incarcerated incisional hernia repair yesterday. Postoperatively he was tachycardic and hypertensive. He was offered admission due to tachycardia hyptertension and for pain control but refused to stay. Patient has follow up with his primary care provider and was found to be tachycardic in 150's and sent to emergency department for further evaluation. Patient states he is having some shortness of breath but feels that is due to abdominal binder. Patient states pain is less lorie what he has had with his other surgeries and currently rates it at about a 4-5/10. Patient states he is urinating. He is not having any nausea or emesis. Patient has had O2 saturation had short time where it dropped into the 80's. Brought back up with o2 supplementation. Ct abd pelvis showing free air, fluid in the abdomen, and dilated small bowel. He has been started on Heparin drip due to possible PE. Receiving IV fluids and antibiotics by sepsis protocol. Patient reports stopping his Vraylar 3 days prior due to cost. Allergies and Home Medications Allergies Coded Allergies: levofloxacin (Verified Allergy, Mild, HIVES, 02/10/20) Sulfa (Sulfonamide Antibiotics) (Verified Allergy, Unknown, HIVES, 04/10/18) ciprofloxacin (Verified Allergy, Unknown, itching, 04/10/18) metronidazole (Verified Allergy, Unknown, itching, 04/10/18) midazolam (Verified Adverse Reaction, Unknown, "made me crazy for a week", 04/10/18) Home Medications Alprazolam 0.5 Mg Tablet, 0.5 MG PO BID PRN for ANXIETY, (Reported) Baclofen 10 Mg Tablet, 10 MG PO TID PRN for MUSCLE CRAMPS, (Reported) Cariprazine Hydrochloride 1.5 Mg Capsule, 1.5 MG PO DAILY, (Reported) Docusate Sodium 100 Mg Capsule, 100 MG PO BID Prescribed by: KEAGAN MAYA on 02/10/20 1148 Gabapentin 100 Mg Capsule, 100 MG PO DAILY, (Reported) Hydrocodone/Acetaminophen 1 Each Tablet, 1-2 TAB PO Q6H Prescribed by: KEAGAN MAYA on 02/10/20 1148 Ondansetron HCl 4 Mg Tab, 4 MG PO Q4H PRN for NAUSEA/VOMITING, (Reported) Temazepam 30 Mg Capsule, 30 MG PO HS, (Reported) Tramadol HCl 50 Mg Tablet, 50 MG PO Q8H PRN for PAIN-MILD (1-4), (Reported) Patient Home Medication List Home Medication List Reviewed: Yes Past Nsncpas-Bgbfoz-Dmmexk Hx Patient Social History Alcohol Use: Rarely Uses Recreational Drug Use: No Smoking Status: Never a Smoker Recent Foreign Travel: No Contact w/Someone Who Travel: No Recent Infectious Disease Expo: No Recent Hopitalizations: No Immunizations Up To Date Tetanus Booster (TDap): Unknown PED Vaccines UTD: No Seasonal Allergies Seasonal Allergies: No Surgeries History of Surgeries: Yes (LUMBAR BACK SURGERY, RUPTURED TESTICLE, colon resection, blocked ureter,) Surgeries: Abdominal (incarcerated incisional hernia repair), Bladder Surgery, Bowel Surgery Respiratory History of Respiratory Disorde: No Cardiovascular History of Cardiac Disorders: Yes Cardiac Disorders: Hypertension Neurological History of Neurological Disord: No Reproductive System Hx Reproductive Disorders: No Sexually Transmitted Disease: No HIV/AIDS: No Genitourinary History of Genitourinary Disor: Yes (sx for blocked uterer) Genitourinary Disorders: Kidney Stones Gastrointestinal History of Gastrointestinal Di: Yes (colon resection) Gastrointestinal Disorders: Abdominal Hernia, Gastroesophageal Reflux, Diverticulosis, Polyps, Hiatal Hernia Musculoskeletal History of Musculoskeletal Dis: No Endocrine History of Endocrine Disorders: No HEENT History of HEENT Disorders: No Loss of Vision: Denies Hearing Impairment: Denies Cancer History of Cancer: No Psychosocial History of Psychiatric Problem: Yes Behavioral Health Disorders: Anxiety Integumentary History of Skin or Integumenta: No Blood Transfusions History of Blood Disorders: No Adverse Reaction to a Blood Tr: No (N/A) Reviewed Nursing Assessment Reviewed/Agree w Nursing PMH: Yes Family Medical History Significant Family History: No Pertinent Family Hx Review of Systems-General Constitutional: chills (last night); No fever EENTM: No blurred vision, No double vision Respiratory: No cough; short of breath Gastrointestinal: abdominal pain (as he would expect postoperatively); No nausea, No vomiting Genitourinary: No decreased output, No discharge Musculoskeletal: No back pain, No joint pain Skin: No change in color, No change in hair/nails Psychiatric/Neurological: Anxiety; Denies Depressed, Denies Emotional Problems All Other Systems Reviewed Negative Unless Noted: Yes (Negative excepted noted.) Physical Exam-General Problems Physical Exam Vital Signs Vital Signs - First Documented 02/11/20 02/11/20 15:29 18:19 Temp 36.4 Pulse 158 Resp 30 B/P (MAP) 127/83 (98) Pulse Ox 96 O2 Delivery Nasal Cannula O2 Flow Rate 3.00 Capillary Refill : Less Than 3 Seconds General Appearance: WD/WN, no apparent distress (slightly anxious) HEENT: PERRL/EOMI, normal ENT inspection Neck: non-tender, supple Respiratory: chest non-tender, other (minimally labored and tachypnic) Cardiovascular: no edema, tachycardia Gastrointestinal: soft, tenderness (incisional, incisions c/d/i minimally distended abdomen) Rectal: deferred Back: normal inspection, no CVA tenderness Extremities: non-tender, normal inspection Neurologic/Psychiatric: youth probation officer II-XII nml as tested, no motor/sensory deficits, alert, normal mood/affect, oriented x 3 Skin: normal color, warm/dry Lymphatic: no adenopathy Data Review Labs Laboratory Tests 02/11/20 15:40: Prothrombin Time 14.0, INR Comment 1.0, Activated Partial Thromboplast Time 31, D-Dimer 3.10H, Procalcitonin 18.62H 02/11/20 15:42: White Blood Count 30.2*H, Red Blood Count 5.80H, Hemoglobin 19.2#H, Hematocrit 56H, Mean Corpuscular Volume 96, Mean Corpuscular Hemoglobin 33, Mean C orpuscular Hemoglobin Concent 35, Red Cell Distribution Width 13.2, Platelet Count 454H, Mean Platelet Volume 9.9, Immature Granulocyte % (Auto) 1, Neutrophils (%) (Auto) 88H, Lymphocytes (%) (Auto) 4L, Monocytes (%) (Auto) 7, Eosinophils (%) (Auto) 0, Basophils (%) (Auto) 0, Neutrophils # (Auto) 27.0H, Lymphocytes # (Auto) 1.3, Monocytes # (Auto) 2.2H, Eosinophils # (Auto) 0.0, Basophils # (Auto) 0.0, Immature Granulocyte # (Auto) 0.2H, Neutrophils % (Manual) 78, Lymphocytes % (Manual) 8, Monocytes % (Manual) 5, Eosinophils % (Manual) 0, Basophils % (Manual) 0, Band Neutrophils 8, Reactive Lymphocytes 1, Toxic Granulation 1+, Polychromasia SLIGHT, Anisocytosis SLIGHT, Sodium Level 135, Potassium Level 4.2, Chloride Level 96L, Carbon Dioxide Level 19L, Anion Gap 20H, Blood Urea Nitrogen 28H, Creatinine 2.64H, Estimat Glomerular Filtration Rate 25, BUN/Creatinine Ratio 11, Glucose Level 142H, Lactic Acid Level 6.60*H, Calcium Level 10.6H 02/11/20 18:00: Lactic Acid Level 5.67*H 02/11/20 21:25: Activated Partial Thromboplast Time 79H, White Blood Count 8.5, Red Blood Count 5.12, Hemoglobin 17.0, Hematocrit 50, Mean Corpuscular Volume 97, Mean Corpuscular Hemoglobin 33, Mean Corpuscular Hemoglobin Concent 34, Red Cell Distribution Width 13.2, Platelet Count 301, Mean Platelet Volume 10.0, Immature Granulocyte % (Auto) 0, Neutrophils (%) (Auto) 88H, Lymphocytes (%) (Auto) 6L, Monocytes (%) (Auto) 5, Eosinophils (%) (Auto) 0, Basophils (%) (Auto) 0, Neutrophils # (Auto) 7.5, Lymphocytes # (Auto) 0.5L, Monocytes # (Auto) 0.4, Eosinophils # (Auto) 0.0, Basophils # (Auto) 0.0, Immature Granulocyte # (Auto) 0.0, Sodium Level 137, Potassium Level 3.7, Chloride Level 103, Carbon Dioxide Level 17L, Anion Gap 17H, Blood Urea Nitrogen 29H, Creatinine 2.19H, Estimat Glomerular Filtration Rate 32, BUN/Creatinine Ratio 13, Glucose Level 114H, Lactic Acid Level 5.55*H, Calcium Level 8.5 Assessment/Plan Assessment/Plan Assessment/Plan S/p laparoscopic incarcerated incsional hernia repair POD 1 Septic shock- Tachycardia, Leukocytosis Acute respiratory failure with hypoxia Possible PE Lactic acidosis Hypertension Tachycardia High anion gap metabolic acidosis Acute kidney injury Recently stopped Vraylar due to cost. IV fluids NPO Follow labs Insert Fields for accurate I/o His abdomen is what I would expect postoperatively, I do not feel is acute at this time. There is free air and fluid in abdomen by CT scan which could be postoperative findings versus acute finding, but by physical exam at this time I feel more postoperative findings at this time. Currently on Heparin for possible PE. VQ scan ordered Discussed with patient all findings. Clinical Quality Measures DVT/VTE Risk/Contraindication: Risk Factor Score Per Nursin RFS Level Per Nursing on Admit: 4+=Very High KEAGAN MAYA DO Feb 11, 2020 22:52
--- NOTE | 2020-02-11 22:58 | NUR ---
E-CI CONTACTED WITH EKG RESULTS OF SINUS TACHYCARDIA. E-ICU ALSO NOTIFIED OF MOTTLING IN PT LOWER EXTREMITIES. NO NEW ORDERS RECEIVED. WILL CONTINUE TO MONITOR.
--- NOTE | 2020-02-12 00:30 | NUR ---
THIS RN CALLED E-ICU AND VOICED CONCERNS OF PTS TACHYCARDIA AND TACHYPNEA AND INCREASED ANXIETY. CT RESULTS DISCUSSED WITH E-ICU. E-ICU VOICED CONCERNS OF PT NEEDING TO BE TAKEN BACK TO OR. [address] CONVERSATION BETWEEN THIS RN, E-ICU AND DR KNAPP INITIATED FOR E-ICU TO VOICE HER CONCERNS TO DR KNAPP. DR KNAPP AGREED THAT PT NEEDED TO BE TAKEN BACK TO SURGERY. DR KNAPP ASKED THIS RN TO ADD SURGEON FORENSIC LOCKSMITH TO CALL. DR MORALES FORENSIC LOCKSMITH FOR SURGERY. DR MROALES UPDATED ON PT CONDITION VIA 3 WAY CALL WITH THIS RN AND DR KNAPP. DR MORALES INFORMED THIS RN AND DR KNAPP THAT HE DIDN'T GET REPORT FROM DR MAYA, WHO ORIGINALLY DID THE SURGERY AND DR MAYA HAD SEEN THE PATIENT JUST AFTER ADMISSION. DR MORALES STATED HE DIDNT WANT TO TAKE PT BACK TO OR AT THIS TIME. DUE TO CONCERNS ABOUT PT STATUS AND QUICK DECLINE, DR MAYA WAS CALLED AND ON THE LINE WITH THIS RN AND DR KNAPP. DR MAYA UPDATED ON PT CONDITION AND AGREED TO COME IN AND SEE THE PT. DR MAYA REQUESTED SURGERY TEAM TO BE CALLED IN TO BE READY TO TAKE PT TO OR. DR MAYA ASLO REQUESTED TO GET HEPARIN REVERSAL AGENT ON BOARD D/T PT RISK OF BLEEDING AND TO STOP HEPARIN GTT. CONSENT OBTAINED FOR SURGERY BY THIS RN FROM PT. REPEAT LABS DRAWN PER DR KNAPP. PROTAMINE SULFATE GIVEN AND HEPARIN DRIP STOPPED. DR MAYA CALLED AND UPDATED PT ON CONDITION PRIOR TO TAKING HIM TO OR.
[2020-02-12 00:59] LABS: BASOPHILS # (AUTO) 0.1 10^3/uL (0.0-0.1); BASOPHILS % (AUTO) 1 % (0-10); EOSINOPHILS # (AUTO) 0.1 10^3/uL (0.0-0.3); EOSINOPHILS % (AUTO) 1 % (0-10); HEMATOCRIT 51 % (40-54); HEMOGLOBIN 17.3 g/dL (13.3-17.7); LYMPHOCYTES # (AUTO) 0.5 10^3/uL (1.0-4.0); LYMPHOCYTES % (AUTO) 7 % (12-44); MEAN CORPUSCULAR HEMOGLOBIN 33 pg (25-34); MEAN CORPUSCULAR HGB CONC 34 g/dL (32-36); MEAN CORPUSCULAR VOLUME 97 fL (80-99); MONOCYTES # (AUTO) 0.5 10^3/uL (0.0-1.0); MONOCYTES % (AUTO) 6 % (0-12); NEUTROPHILS # (AUTO) 6.9 10^3/uL (1.8-7.8); NEUTROPHILS % (AUTO) 86 % (42-75); PLATELET COUNT 296 10^3/uL (130-400); WHITE BLOOD COUNT 8.1 10^3/uL (4.3-11.0)
[2020-02-12 01:00] LABS: CLARITY,URINE CLEAR; COLOR,URINE YELLOW; GLUCOSE, URINE (UA) NEGATIVE (NEGATIVE); KETONES,URINE NEGATIVE (NEGATIVE); LEUKOCYTE ESTERASE ,URINE TRACE (NEGATIVE); NITRITE,URINE NEGATIVE (NEGATIVE); PROTEIN,URINE 1+ (NEGATIVE)
[2020-02-12] MEDS ORDERED: PROTAMINE 50 MG/5 ML VIAL IV ONE (01:00)
[2020-02-12 01:09] LABS: CALCIUM 8.2 MG/DL (8.5-10.1)
[2020-02-12 01:13] LABS: BACTERIA,URINE FEW /HPF; BILIRUBIN,URINE 1+ (NEGATIVE); CREATININE SERUM 2.37 MG/DL (0.60-1.30); PHOSPHORUS 3.4 MG/DL (2.3-4.7); SQUAMOUS EPITHELIAL CELL,UR 0-2 /HPF
[2020-02-12 01:15] LABS: MAGNESIUM 1.7 MG/DL (1.6-2.4)
[2020-02-12 01:18] LABS: POTASSIUM 6.9 MMOL/L (3.6-5.0)
[2020-02-12] MEDS ORDERED: LIDOCAINE PF 2% 5 ML (XYLOCAINE) VIAL ONE (01:24)
[2020-02-12] MEDS ORDERED: ONDANSETRON 4 MG/2 ML (SDV) Z0FRAN ONE (01:24)
[2020-02-12] MEDS ORDERED: proPOfol 200 MG/20 ML (DIPRIVAN) VIAL IV ONE (01:24)
[2020-02-12] MEDS ORDERED: SEVOFLURANE (ULTANE) 15 ML INHAL SOLN ONE (01:24)
[2020-02-12] MEDS ORDERED: fentaNYL INJECTION 100 MCG/2 ML AMP ONE (01:24)
[2020-02-12] MEDS ORDERED: MIDAZOLAM 2 MG/2 ML (VERSED) VIAL ONE (01:27)
[2020-02-12] MEDS ORDERED: NS IV 500 ML 500 ML IV SCH (01:30)
[2020-02-12] MEDS: NS IV 1000 ML 1,000 ML IV SCH ×2 (01:32→08:17)
[2020-02-12 01:46] LABS: POTASSIUM 3.6 MMOL/L (3.6-5.0)
[2020-02-12 01:47] LABS: CALCIUM 8.1 MG/DL (8.5-10.1)
[2020-02-12] MEDS ORDERED: SUCCINYLCHOLINE INJ 100 MG/5 ML SYR/VIAL ONE (01:51)
[2020-02-12 01:54] LABS: CREATININE SERUM 2.34 MG/DL (0.60-1.30)
[2020-02-12 02:02] LABS: AMPHETAMINE SCREEN, URINE NEGATIVE (NEGATIVE); BARBITURATE SCREEN URINE NEGATIVE (NEGATIVE); BENZODIAZEPINES SCREEN URINE POSITIVE (NEGATIVE); CANNABINOID SCREEN, URINE POSITIVE (NEGATIVE); COCAINE SCREEN URINE NEGATIVE (NEGATIVE); METHADONE STAT NEGATIVE (NEGATIVE); METHAMPHETAMINE SCREEN URINE S NEGATIVE (NEGATIVE); OPIATE SCREEN URINE POSITIVE (NEGATIVE); OXYCODONE STAT NEGATIVE (NEGATIVE); PROPOXYPHENE STAT NEGATIVE (NEGATIVE); TRICYCLIC ANTIDEPRESSANTS SCRE NEGATIVE (NEGATIVE)
[2020-02-12] MEDS ORDERED: EPINEPHrine (OMNICELL DRIP KIT ONLY) 1 MG/ML AMP ONE ×2 (02:29→03:25)
[2020-02-12] MEDS ORDERED: NS (IVPB) 250 ML ONE ×4 (02:30→20:41)
[2020-02-12 03:03] LABS: BASOPHILS # (AUTO) 0.1 10^3/uL (0.0-0.1); BASOPHILS % (AUTO) 1 % (0-10); EOSINOPHILS % (AUTO) 0 % (0-10); HEMATOCRIT 48 % (40-54); LYMPHOCYTES # (AUTO) 2.7 10^3/uL (1.0-4.0); LYMPHOCYTES % (AUTO) 25 % (12-44); MEAN CORPUSCULAR HEMOGLOBIN 33 pg (25-34); MEAN CORPUSCULAR HGB CONC 32 g/dL (32-36); MEAN CORPUSCULAR VOLUME 105 fL (80-99); MEAN PLATELET VOLUME 10.5 fL (9.0-12.2); MONOCYTES # (AUTO) 0.5 10^3/uL (0.0-1.0); MONOCYTES % (AUTO) 4 % (0-12); NEUTROPHILS # (AUTO) 7.3 10^3/uL (1.8-7.8); NEUTROPHILS % (AUTO) 69 % (42-75); PLATELET COUNT 220 10^3/uL (130-400); WHITE BLOOD COUNT 10.6 10^3/uL (4.3-11.0)
[2020-02-12 03:08] LABS: ALBUMIN 2.4 GM/DL (3.2-4.5)
[2020-02-12 03:09] LABS: CALCIUM 9.5 MG/DL (8.5-10.1)
[2020-02-12 03:11] LABS: TOTAL PROTEIN 4.5 GM/DL (6.4-8.2)
[2020-02-12 03:12] LABS: BILIRUBIN,TOTAL 1.1 MG/DL (0.1-1.0)
[2020-02-12 03:14] LABS: CREATININE SERUM 2.91 MG/DL (0.60-1.30); PHOSPHORUS 10.9 MG/DL (2.3-4.7)
[2020-02-12 03:16] LABS: BILIRUBIN,DIRECT 0.5 MG/DL (0.0-0.3); BILIRUBIN,INDIRECT 0.6 MG/DL
[2020-02-12] MEDS ORDERED: PHENYLEPHRINE INJ 10 MG/ML (FOR DRIP KITS ONLY) ONE ×4 (03:16→20:47)
[2020-02-12 03:17] LABS: MAGNESIUM 2.2 MG/DL (1.6-2.4)
[2020-02-12 03:26] LABS: INR 1.7 (0.8-1.4); PARTIAL THROMBOPLASTIN TIME 59 SEC (24-35); PROTHROMBIN TIME PATIENT 20.3 SEC (12.2-14.7)
[2020-02-12] MEDS ORDERED: SODIUM BICARB 8.4% 50 MEQ/50 ML VIAL IV ONE (03:30)
[2020-02-12] MEDS ORDERED: PHENYLEPHRINE INJECTION 10 MG in NS (IVPB) 250 ML IV SCH (03:30)
[2020-02-12 03:31] LABS: ABG BASE EXCESS -15.2 MMOL/L (-2.5-2.5); ABG OXYGEN SATURATION 75 % (94-100); ABG PO2 76 MMHG (79-93); ABG TCO2 18.8 MMOL/L (21.0-31.0)
[2020-02-12 03:35] LABS: ABG PCO2 85 MMHG (35-45); ALLENS TEST ART LINE; INSPIRED O2 100%; PATIENT TEMP 36.2; VENTILATOR YES
[2020-02-12] MEDS: EPINEPHrine 1 MG INJECTION 4 MG in NS (IVPB) 246 ML IV SCH ×3 (03:39→18:18)
[2020-02-12] MEDS ORDERED: EPINEPHrine INJECTION 1 MG/ML AMP ONE (03:43)
[2020-02-12] MEDS ORDERED: ATROPINE INJ 0.4 MG/ML SDV ONE (03:43)
[2020-02-12] MEDS ORDERED: ROCURONIUM 10 MG/ML 5 ML SYRINGE IV ONE ×3 (03:44→11:47)
[2020-02-12 03:59] LABS: FIBRIN DEGRADATION PRODUCTS > 20.00 UG/ML (0.00-0.49)
[2020-02-12] MEDS ORDERED: VASOPRESSIN INJECTION 20 UNIT/ML VIAL ONE (04:02)
[2020-02-12] MEDS ORDERED: NS (IVPB) 100 ML ONE (04:03)
[2020-02-12] MEDS ORDERED: D5W 1000 ML IV SOLUTION 1,000 ML ONE (04:09)
[2020-02-12] MEDS: VASOPRESSIN INJECTION 20 UNIT in NS (IVPB) 100 ML IV SCH ×3 (04:09→17:54)
[2020-02-12] MEDS ORDERED: CISATRACURIUM INJECTION 100 MG in NS (IVPB) 200 ML IV SCH (04:15)
[2020-02-12 04:28] LABS: ABG BASE EXCESS -12.9 MMOL/L (-2.5-2.5); ABG OXYGEN SATURATION 92 % (94-100); ABG PCO2 68 MMHG (35-45); ABG PO2 101 MMHG (79-93); ABG TCO2 18.8 MMOL/L (21.0-31.0)
[2020-02-12 04:29] LABS: ABG PH 7.01 (7.37-7.43)
[2020-02-12 04:30] LABS: ALLENS TEST ART LINE; INSPIRED O2 100%; VENTILATOR YES
[2020-02-12] MEDS ORDERED: SODIUM BICARBONATE IV SCH (04:30)
[2020-02-12] MEDS ORDERED: D5W IV SCH (04:30)
[2020-02-12] MEDS ORDERED: NOREPINEPHRINE 4 MG/250 ML 250 ML IV ONE (04:34)
[2020-02-12] MEDS: NOREPINEPHRINE 4 MG/250 ML 250 ML IV SCH ×4 (04:39→07:40)
[2020-02-12] MEDS ORDERED: ADENOSINE 6 MG/2 ML (ADENOCARD) VIAL IV ONE ×2 (04:58→16:39)
--- NOTE | 2020-02-12 05:44 | Pulmonary Consultation ---
History of Present Illness History of Present Illness Date Seen by Provider: Feb 12, 2020 Time Seen by Provider: 05:38 Date of Admission History of Present Illness 55yo who is s/p Ex Lap for incisional hernia repair per Dr. Maya POD #2 presented to ED secondary to worsening palpitations, and SOB. HR was noted to be 150's SBP 140's, and Sp02 94-99% at PCPs office prior to admission. Dr. Maya was planning on doing ex lab however after pt was intubated he went into [facility]. Pt transported back to ICU on ventilator. He is currently sedated on vent s/p CODE blue. Dr. Maya and Anesthesia at bedside. Allergies and Home Medications Allergies Coded Allergies: levofloxacin (Verified Allergy, Mild, HIVES, 02/10/20) Sulfa (Sulfonamide Antibiotics) (Verified Allergy, Unknown, HIVES, 04/10/18) ciprofloxacin (Verified Allergy, Unknown, itching, 04/10/18) metronidazole (Verified Allergy, Unknown, itching, 04/10/18) midazolam (Verified Adverse Reaction, Unknown, "made me crazy for a week", 04/10/18) Home Medications Alprazolam 0.5 Mg Tablet, 0.5 MG PO BID PRN for ANXIETY, (Reported) Baclofen 10 Mg Tablet, 10 MG PO TID PRN for MUSCLE CRAMPS, (Reported) Cariprazine Hydrochloride 1.5 Mg Capsule, 1.5 MG PO DAILY, (Reported) Docusate Sodium 100 Mg Capsule, 100 MG PO BID Prescribed by: KEAGAN MAYA on 02/10/20 1148 Gabapentin 100 Mg Capsule, 100 MG PO DAILY, (Reported) Hydrocodone/Acetaminophen 1 Each Tablet, 1-2 TAB PO Q6H Prescribed by: KEAGAN MAYA on 02/10/20 1148 Ondansetron HCl 4 Mg Tab, 4 MG PO Q4H PRN for NAUSEA/VOMITING, (Reported) Temazepam 30 Mg Capsule, 30 MG PO HS, (Reported) Tramadol HCl 50 Mg Tablet, 50 MG PO Q8H PRN for PAIN-MILD (1-4), (Reported) Past Rdtbust-Fjwpub-Eadwbp Hx Past Med/Social Hx: Reviewed Nursing Past Med/Soc Hx Patient Social History Alcohol Use: Rarely Uses Recreational Drug Use: No Smoking Status: Never a Smoker Recent Foreign Travel: No Contact w/Someone Who Travel: No Recent Infectious Disease Expo: No Recent Hopitalizations: No Physical Abuse: No Sexual Abuse: No Immunizations Up To Date Tetanus Booster (TDap): Unknown PED Vaccines UTD: No Seasonal Allergies Seasonal Allergies: No Past Medical History Surgeries: Yes (LUMBAR BACK SURGERY, RUPTURED TESTICLE, colon resection, block ed ureter,) Abdominal (incarcerated incisional hernia repair), Bladder Surgery, Bowel Surgery Respiratory: No Currently Using CPAP: No Currently Using BIPAP: No Cardiac: Yes Hypertension Neurological: No Reproductive Disorders: No Sexually Transmitted Disease: No HIV/AIDS: No Genitourinary: Yes (sx for blocked uterer) Kidney Stones Gastrointestinal: Yes (colon resection) Abdominal Hernia, Gastroesophageal Reflux, Diverticulosis, Polyps, Hiatal Hernia Musculoskeletal: No Endocrine: No HEENT: No Loss of Vision: Denies Hearing Impairment: Denies Cancer: No Psychosocial: Yes Anxiety Integumentary: No Blood Disorders: No Adverse Reaction/Blood Tranf: No (N/A) Family Medical History No Pertinent Family Hx Review of Systems Time Seen by Provider: 05:48 Sepsis Event Evaluation Height, Weight, BMI Height: 6'2.00" Weight: 217lbs. 6.0oz. 98.775197xf; 26.48 BMI Method: Exam Exam Vital Signs Date Time Temp Pulse Resp B/P (MAP) Pulse Ox O2 Delivery O2 Flow Rate FiO2 02/12/20 05:27 83/65 02/12/20 05:16 62/51 02/12/20 05:12 69/53 02/12/20 04:52 86/70 02/12/20 04:51 87/71 02/12/20 04:39 100/80 02/12/20 04:09 142 94/70 02/12/20 01:05 High Flow N/C 6.00 02/12/20 01:00 161 113/95 96 High Flow N/C 4.00 02/12/20 01:00 162 02/12/20 00:05 High Flow N/C 4.00 02/12/20 00:00 163 45 125/87 95 High Flow N/C 2.00 02/11/20 23:37 37.6 02/11/20 23:22 95 Nasal Cannula 2.00 02/11/20 23:00 158 29 121/88 95 High Flow N/C 2.00 02/11/20 22:00 158 40 112/85 95 High Flow N/C 2.00 02/11/20 21:00 152 41 138/96 95 High Flow N/C 2.00 02/11/20 20:45 158 41 130/81 95 High Flow N/C 2.00 02/11/20 20:15 147 38 126/103 93 High Flow N/C 2.00 02/11/20 20:00 High Flow N/C 2.00 02/11/20 20:00 36.2 02/11/20 20:00 95 Nasal Cannula 2.00 02/11/20 19:45 134 35 124/99 100 High Flow N/C 6.00 02/11/20 19:40 99 High Flow N/C 6.00 02/11/20 19:30 135 36 133/98 98 High Flow N/C 6.00 02/11/20 19:15 125 25 132/92 100 High Flow N/C 6.00 02/11/20 19:00 135 25 132/92 100 High Flow N/C 6.00 02/11/20 18:40 133 02/11/20 18:19 147 45 109/64 (98) 96 Nasal Cannula 3.00 02/11/20 15:29 36.4 158 30 127/83 (98) 96 I & O 02/12/20 07:00 Intake Total 5120 ml Output Total 400 ml Balance 4720 ml Height & Weight Height: 6'2.00" Weight: 217lbs. 6.0oz. 98.528707io; 26.48 BMI Method: General Appearance: Other (sedated on vent) HEENT: Pharynx Normal, Other (pupils are unequal and sluggish. ) Neck: Normal Inspection, Supple Respiratory: No Respiratory Distress, Decreased Breath Sounds Cardiovascular: No Edema, Tachycardia (regular rhythm) Capillary Refill: Less Than 3 Seconds Gastrointestinal: soft, distended Extremity: Normal Inspection, Non Tender, No Pedal Edema Skin: Normal Color, Warm/Dry Lymphatic: No Adenopathy Results Lab Laboratory Tests 02/11/20 15:42 02/11/20 21:25 02/12/20 00:43 02/12/20 01:15 02/12/20 02:44 Assessment/Plan Assessment/Plan Acute respiratory failure s/p Cardiac arrest. -Anesthesia and Dr. Maya is currently at bedside. -Continue vent -Change vent to regular vent from transport vent Suspected PE -Continue Hep gtt -Unable to obtain CTA secondary to renal function and pt is too unstable for CT scan or VQ scan -Check stat echocardiogram S/p Lap incarcerated incisional hernia repair POD 2 S/p CODE Vtach -Pt may need to go back to surgery. -Dr. Maya at bedside. -Pt is currently on multiple pressors and continues to be very unstable septic Shock r/o acute abdomen -Currently on Levophed, Vasopressin -Epi on hold secondary to SVT -S/p Adenosine, and cardioversion for SVT -Cardiology following -- Discussed with Dr. Ardon -Stat echo pending -S/p CT abd/Pelvis -- Dr. Maya reviewed. -Continue Vanco and Zosyn -Rodriguez cultures pending Acute renal failure with metabolic acidosis and hyperphos -Continue bicarb gtt s/p bicarb push -Repeat labs at 1300 -Start PhosLo - Discussed with Dr. Maya Metabolic lactic acidosis -IVF -Give another liter bolus of NS Hx of Bipolar -Hold psych meds for now Update 0920: With RN present we discussed with pt's mother and current condition and answered all questions to the best of our ability. Family wants everything done. 0935: Patients' abd is more distended. Echo does not show elevated PA or right sided pressures so doubt acute PE. RN instructed to D/C hep gtt. Per Echo pt appears more volume depleted. UO is diminished. RN checking bladder pressures. Will give him another liter bolus. Discussed with Dr. Maya, Dr. Benitez, Dr. Ardon extensively. Pt is currently too unstable to get CT scan. Dr. Benitez is discussing pt with Dr. Monsalve currently about taking to OR for ex lap. Per Dr. Eli Monsalve is going to take pt back to OR. 0945 Bladder pressure is [id number] EZEQUIEL MAHARAJ DO Feb 12, 2020 05:44
[2020-02-12] MEDS: PHENYLEPHRINE INJECTION 20 MG in NS (IVPB) 250 ML IV SCH ×9 (06:11→22:26)
[2020-02-12 06:53] LABS: ABG BASE EXCESS -6.3 MMOL/L (-2.5-2.5); ABG OXYGEN SATURATION 88 % (94-100); ABG PCO2 59 MMHG (35-45); ABG PO2 78 MMHG (79-93); ABG TCO2 22.7 MMOL/L (21.0-31.0)
[2020-02-12 06:54] LABS: ABG PH 7.18 (7.37-7.43)
[2020-02-12 06:57] LABS: ALLENS TEST ART LINE; INSPIRED O2 100%; PATIENT TEMP 36.9; VENTILATOR YES
[2020-02-12] MEDS ORDERED: DexMEDEtomidine PRE MIX 100 ML IV ONE (07:07)
[2020-02-12] MEDS ORDERED: RT-ALBUTEROL/IPRATROPIUM 3 ML (DUONEB) VIAL ONE ×2 (07:08→10:34)
[2020-02-12] MEDS: HYDROCORTISONE 100 MG/2 ML (Solu-CORTEF) VIAL IV SCH ×3 (07:11→21:57)
[2020-02-12] MEDS: DexMEDEtomidine PRE MIX 100 ML IV SCH ×2 (07:11→10:19)
[2020-02-12 07:19] VITALS: BP 94/73
--- NOTE | 2020-02-12 07:27 | Physical Therapy Progress Note ---
Therapy Progress Note Patient, per report, s/p code blue and abdominal surgery. PT will consult with nursing on patient status and POC. KIAR BENTLEY PT Feb 12, 2020 07:27
--- NOTE | 2020-02-12 07:30 | NUR ---
[place] transplant called as an initial call/referral
--- NOTE | 2020-02-12 07:48 | NUR ---
TIMELINE NOTE 0320- PT RETURNED FROM OR AT TIME. 0325- 1 AMP EPI ADMINISTERED BY ANESTHESIA. 0327- 1 AMP BICARB ADMINISTERED BY ANESTHESIA. 0330- BAGGING STARTED D/T LOW 02 SATS. 0334- ABG RESULTS PH 6.9, PCO2 85, BICARB 16, PAO2 76, O2 SAT 75. RESULTS CALLED TO E-ICU. 0336- 1 AMP BICARB ADMINISTERED BY ANESTHESIA. 0339- EPINEPHRINE DRIP HUNG AT 0.4. 0348-PHENYLEPHRINE DRIP HUNG AT 360MG PER ANESTHESIA. E-ICU CALLED AND ORDERS GIVEN TO STOP BAGGING AND PLACE PT BACK ON VENT. VENT SETTINGS PER E-ICU FOLLOWS- TV 500, RATE-25, PEEP-12, FIO2- 100%. VASOPRESSIN STARTED AT 0.04. 0416- EPINEPHRINE DRIP DECREASED TO 0.2. 0445- PHENYLEPHRINE DRIP STOPPED. 0446- NOREPINEPHRINE STARTED. 0450- PT HEART RATE TO 240-250. DR MAHARAJ AND DR MAYA AT BEDSIDE. 0501- 6MG ADENOSINE GIVEN PER DR MAHARAJ. 0502- 12 MG ADENOSINE GIVEN PER DR MAHARAJ. PT HEART RATE CONTINUES TO BE TACHYCARDIC. 0503- CARDIOVERSION ATTEMPTED AT 200J PER DR MAHARAJ. NO CHANGE IN HEART RATE 0504- CARDIOVERSION ATTEMPTED AT 200J PER DR MAHARAJ. NO CHANGE IN HEART RATE. 0505- 1 AMP BICARB GIVEN PER DR MAHARAJ. EKG OBTAINED. DR RODRIGUEZ CALLED. 0506- EPINEPHRINE DRIP HELD AT THIS TIME D/T TACHYCARDIA. 0523- LR BOLUS STARTED PER DR MAHARAJ. DRIPS TITRATED PER PROTOCOL THROUGHOUT THIS NOTE. DR MAYA AND DR MAHARAJ AWARE OF ALL CHANGES.
--- NOTE | 2020-02-12 07:50 | Diagnostic Imaging Report ---
INDICATION: Dyspnea. TECHNIQUE: Single view chest 4:42 AM. CORRELATION STUDY: 02/11/2020 FINDINGS: Endotracheal tube is in place tip projecting over the thoracic inlet to the level the clavicles. Gastric tube was also in place, passing below left hemidiaphragm tip at the level of the body of the stomach. Heart size enlarged, mediastinum prominent. Vasculature appears slightly more prominent. There is limited depth of inspiration. This results in some crowding in perihilar and basilar regions. Lucency below the right diaphragm suggestive of free air as demonstrated on prior imaging. IMPRESSION: 1. Limited depth of inspiration resulting in the perihilar and basilar areas of atelectasis. 2. Cardiac enlargement vasculature appears may be somewhat accentuated by low volume. Component of vascular congestion not excluded. 3. Interval intubation and placement of gastric tube. 4. Lucency below the right diaphragm compatible with known free intraperitoneal air Dictated by: Dictated on workstation # [id number]
--- NOTE | 2020-02-12 07:52 | Diagnostic Imaging Report ---
INDICATION: Mechanical ventilation. TECHNIQUE: Single view chest 6:53 AM. CORRELATION STUDY: 02/12/2020 FINDINGS: Endotracheal tube and gastric tube remain in place. There is again demonstration of free air, particularly below the right diaphragm. Low lung volumes with atelectasis, perihilar and basilar regions likely largely atelectasis appears slightly more prominent. Heart size and mediastinum remain enlarged and prominent. IMPRESSION: 1. Stable appearance about support lines and tubes. 2. Again demonstration of free air most noticeable below the right diaphragm. 3. Hypoventilation with some progressive atelectasis of perihilar and basilar regions. Dictated by: Dictated on workstation # [id number]
[2020-02-12 08:15] LABS: ABG BASE EXCESS -6.4 MMOL/L (-2.5-2.5); ABG OXYGEN SATURATION 89 % (94-100); ABG PCO2 51 MMHG (35-45); ABG PO2 75 MMHG (79-93); ABG TCO2 21.7 MMOL/L (21.0-31.0)
[2020-02-12] MEDS: NOREPINEPHRINE 8 MG in NS (IVPB) 250 ML IV SCH ×5 (08:16→19:21)
[2020-02-12 08:17] LABS: ABG PH 7.22 (7.37-7.43)
[2020-02-12 08:18] LABS: ALLENS TEST YES-POS; INSPIRED O2 100; PATIENT TEMP 36.8; VENTILATOR YES
[2020-02-12] MEDS: AMIODARONE INJECTION 450 MG in D5W IV SOLUTION (EXCEL) 250 ML IV SCH (08:23)
[2020-02-12] MEDS: PIPERACILLIN/TAZO 4.5 GM/NS 100 ML IV SCH ×6 (08:23→22:38)
--- NOTE | 2020-02-12 08:29 | Consultation-Cardiology ---
HPI-Cardiology Cardiology Consultation Date of Consultation 02/12/20 Date of Admission Time Seen by Provider: 08:24 Indication: ventricular fibrillation HPI Patient is sedated and intubated, unable to provide any history, history was obtained by reviewing his record. 55 years old gentleman underwent recent abdominal hernia repair surgery, returned the next day to the emergency room with tachycardia and palpitation. Patient had leukocytosis. He was taken to the operating room, prior to the surgery patient became unstable and had ventricular tachycardia and ventricular fibrillation, ACLS protocol was followed. He is severely hypotensive requiring multiple pressors, tachycardic. Home Medications & Allergies Allergies: Coded Allergies: levofloxacin (Verified Allergy, Mild, HIVES, 02/10/20) Sulfa (Sulfonamide Antibiotics) (Verified Allergy, Unknown, HIVES, 04/10/18) ciprofloxacin (Verified Allergy, Unknown, itching, 04/10/18) metronidazole (Verified Allergy, Unknown, itching, 04/10/18) midazolam (Verified Adverse Reaction, Unknown, "made me crazy for a week", 04/10/18) Home Medication List Reviewed: Yes [id number]-Pydgix Hx Patient Social History Alcohol Use: Rarely Uses Recreational Drug Use: No Smoking Status: Never a Smoker Recent Foreign Travel: No Recent Infectious Disease Expo: No Recent Hopitalizations: No Immunizations Up To Date Tetanus Booster (TDap): Unknown Past Medical History Discussed below Family Medical History Significant Family History: No Pertinent Family Hx Family Medical Hx Unable to obtain family history Review of Systems-General Review of Systems Constitutional: No fever; other (sedated and intubated, unable to obtain review of systems) Cardiovascular: see HPI Gastrointestinal: see HPI All Other Systems Reviewed Negative Unless Noted: Yes (Negative excepted noted.) Reviewed Test Results Reviewed Test Results Lab Laboratory Tests Test 02/11/20 15:40 02/11/20 15:42 02/11/20 18:00 02/11/20 21:25 Range/Units Prothrombin Time 14.0 12.2-14.7 SEC INR Comment 1.0 0.8-1.4 Activated Partial Thromboplast Time 31 79 H 24-35 SEC D-Dimer 3.10 H 0.00-0.49 UG/ML Procalcitonin 18.62 H <0.10 NG/ML White Blood Count 30.2 *H 8.5 4.3-11.0 10^3/uL Red Blood Count 5.80 H 5.12 4.30-5.52 10^6/uL Hemoglobin 19.2 #H 17.0 13.3-17.7 g/dL Hematocrit 56 H 50 40-54 % Mean Corpuscular Volume 96 97 80-99 fL Mean Corpuscular Hemoglobin 33 33 25-34 pg Mean Corpuscular Hemoglobin Concent 35 34 32-36 g/dL Red Cell Distribution Width 13.2 13.2 10.0-14.5 % Platelet Count 454 H 301 130-400 10^3/uL Mean Platelet Volume 9.9 10.0 9.0-12.2 fL Immature Granulocyte % (Auto) 1 0 % Neutrophils (%) (Auto) 88 H 88 H 42-75 % Lymphocytes (%) (Auto) 4 L 6 L 12-44 % Monocytes (%) (Auto) 7 5 0-12 % Eosinophils (%) (Auto) 0 0 0-10 % Basophils (%) (Auto) 0 0 0-10 % Neutrophils # (Auto) 27.0 H 7.5 1.8-7.8 10^3/uL Lymphocytes # (Auto) 1.3 0.5 L 1.0-4.0 10^3/uL Monocytes # (Auto) 2.2 H 0.4 0.0-1.0 10^3/uL Eosinophils # (Auto) 0.0 0.0 0.0-0.3 10^3/uL Basophils # (Auto) 0.0 0.0 0.0-0.1 10^3/uL Immature Granulocyte # (Auto) 0.2 H 0.0 0.0-0.1 10^3/uL Neutrophils % (Manual) 78 % Lymphocytes % (Manual) 8 % Monocytes % (Manual) 5 % Eosinophils % (Manual) 0 % Basophils % (Manual) 0 % Band Neutrophils 8 % Reactive Lymphocytes 1 % Toxic Granulation 1+ Polychromasia SLIGHT Anisocytosis SLIGHT Sodium Level 135 137 135-145 MMOL/L Potassium Level 4.2 3.7 3.6-5.0 MMOL/L Chloride Level 96 L 103 98-107 MMOL/L Carbon Dioxide Level 19 L 17 L 21-32 MMOL/L Anion Gap 20 H 17 H 5-14 MMOL/L Blood Urea Nitrogen 28 H 29 H 7-18 MG/DL Creatinine 2.64 H 2.19 H 0.60-1.30 MG/DL Estimat Glomerular Filtration Rate 25 32 BUN/Creatinine Ratio 11 13 Glucose Level 142 H 114 H 70-105 MG/DL Lactic Acid Level 6.60 *H 5.67 *H 5.55 *H 0.50-2.00 MMOL/L Calcium Level 10.6 H 8.5 8.5-10.1 MG/DL Test 02/11/20 23:32 02/12/20 00:43 02/12/20 01:15 02/12/20 02:44 Range/Units Lactic Acid Level 5.55 *H 7.59 *H 0.50-2.00 MMOL/L White Blood Count 8.1 10.6 4.3-11.0 10^3/uL Red Blood Count 5.24 4.52 4.30-5.52 10^6/uL Hemoglobin 17.3 15.0 13.3-17.7 g/dL Hematocrit 51 48 40-54 % Mean Corpuscular Volume 97 105 H 80-99 fL Mean Corpuscular Hemoglobin 33 33 25-34 pg Mean Corpuscular Hemoglobin Concent 34 32 32-36 g/dL Red Cell Distribution Width 13.3 13.3 10.0-14.5 % Platelet Count 296 220 130-400 10^3/uL Mean Platelet Volume 11.0 10.5 9.0-12.2 fL Immature Granulocyte % (Auto) 0 1 % Neutrophils (%) (Auto) 86 H 69 42-75 % Lymphocytes (%) (Auto) 7 L 25 12-44 % Monocytes (%) (Auto) 6 4 0-12 % Eosinophils (%) (Auto) 1 0 0-10 % Basophils (%) (Auto) 1 1 0-10 % Neutrophils # (Auto) 6.9 7.3 1.8-7.8 10^3/uL Lymphocytes # (Auto) 0.5 L 2.7 1.0-4.0 10^3/uL Monocytes # (Auto) 0.5 0.5 0.0-1.0 10^3/uL Eosinophils # (Auto) 0.1 0.0 0.0-0.3 10^3/uL Basophils # (Auto) 0.1 0.1 0.0-0.1 10^3/uL Immature Granulocyte # (Auto) 0.0 0.1 0.0-0.1 10^3/uL Urine Color YELLOW Urine Clarity CLEAR Urine pH 6.0 5-9 Urine Specific [facility] 1.010 L 1.016-1.022 Urine Protein 1+ H NEGATIVE Urine Glucose (UA) NEGATIVE NEGATIVE Urine Ketones NEGATIVE NEGATIVE Urine Nitrite NEGATIVE NEGATIVE Urine Bilirubin 1+ H NEGATIVE Urine Urobilinogen 0.2 < = 1.0 MG/DL Urine Leukocyte Esterase TRACE H NEGATIVE Urine RBC (Auto) 1+ H NEGATIVE Urine RBC 5-10 H /HPF Urine WBC 2-5 /HPF Urine Squamous Epithelial Cells 0-2 /HPF Urine Crystals NONE /LPF Urine Bacteria FEW H /HPF Urine Casts NONE /LPF Urine Mucus SMALL H /LPF Urine Culture Indicated YES Sodium Level 134 L 138 142 135-145 MMOL/L Potassium Level 6.9 #*H 3.6 4.0 3.6-5.0 MMOL/L Chloride Level 103 103 103 98-107 MMOL/L Carbon Dioxide Level 14 L 15 L 12 L 21-32 MMOL/L Anion Gap 17 H 20 H 27 H 5-14 MMOL/L Blood Urea Nitrogen 31 H 31 H 33 H 7-18 MG/DL Creatinine 2.37 H 2.34 H 2.91 #H 0.60-1.30 MG/DL Estimat Glomerular Filtration Rate 29 29 23 BUN/Creatinine Ratio 13 13 11 Glucose Level 114 H 118 H 160 H 70-105 MG/DL Calcium Level 8.2 L 8.1 L 9.5 8.5-10.1 MG/DL Phosphorus Level 3.4 10.9 H 2.3-4.7 MG/DL Magnesium Level 1.7 2.2 1.6-2.4 MG/DL Urine Opiates Screen POSITIVE H NEGATIVE Urine Oxycodone Screen NEGATIVE NEGATIVE Urine Methadone Screen NEGATIVE NEGATIVE Urine Propoxyphene Screen NEGATIVE NEGATIVE Urine Barbiturates Screen NEGATIVE NEGATIVE Ur Tricyclic Antidepressants Screen NEGATIVE NEGATIVE Urine Phencyclidine Screen NEGATIVE NEGATIVE Urine Amphetamines Screen NEGATIVE NEGATIVE Urine Methamphetamines Screen NEGATIVE NEGATIVE Urine Benzodiazepines Screen POSITIVE H NEGATIVE Urine Cocaine Screen NEGATIVE NEGATIVE Urine Cannabinoids Screen POSITIVE H NEGATIVE Prothrombin Time 20.3 H 12.2-14.7 SEC INR Comment 1.7 H 0.8-1.4 Activated Partial Thromboplast Time 59 H 24-35 SEC D-Dimer > 20.00 *H 0.00-0.49 UG/ML Corrected Calcium 10.8 H 8.5-10.1 MG/DL Total Bilirubin 1.1 H 0.1-1.0 MG/DL Direct Bilirubin 0.5 H 0.0-0.3 MG/DL Indirect Bilirubin 0.6 MG/DL Aspartate Amino Transf (AST/SGOT) 26 5-34 U/L Alanine Aminotransferase (ALT/SGPT) 23 0-55 U/L Alkaline Phosphatase 47 40-136 U/L Total Protein 4.5 L 6.4-8.2 GM/DL Albumin 2.4 L 3.2-4.5 GM/DL Test 02/12/20 03:25 02/12/20 04:21 02/12/20 05:54 02/12/20 06:19 Range/Units Blood Gas Puncture Site LEFT ART LINE ART LINE Blood Gas Patient Temperature 36.2 36.0 Arterial Blood pH 6.90 *L 7.01 *L 7.37-7.43 Arterial Blood Partial Pressure CO2 85 *H 68 H 35-45 MMHG Arterial Blood Partial Pressure O2 76 L 101 H 79-93 MMHG Arterial Blood HCO3 16 *L 17 *L 23-27 MMOL/L Arterial Blood Total CO2 18.8 L 18.8 L 21.0-31.0 MMOL/L Arterial Blood Oxygen Saturation 75 L 92 L 94-100 % Arterial Blood Base Excess -15.2 L -12.9 L -2.5-2.5 MMOL/L Aristeo Test ART LINE ART LINE Blood Gas Ventilator Setting YES YES Blood Gas Inspired Oxygen 100% 100% Coronavirus 2019 (MAGDALENO) Negative Negative Lactic Acid Level 4.68 *H 0.50-2.00 MMOL/L Test 02/12/20 06:41 02/12/20 08:05 Range/Units Blood Gas Puncture Site LEFT ARTLINE L RAD Blood Gas Patient Temperature 36.9 36.8 Arterial Blood pH 7.18 *L 7.22 *L 7.37-7.43 Arterial Blood Partial Pressure CO2 59 H 51 H 35-45 MMHG Arterial Blood Partial Pressure O2 78 L 75 L 79-93 MMHG Arterial Blood HCO3 21 L 20 L 23-27 MMOL/L Arterial Blood Total CO2 22.7 21.7 21.0-31.0 MMOL/L Arterial Blood Oxygen Saturation 88 L 89 L 94-100 % Arterial Blood Base Excess -6.3 L -6.4 L -2.5-2.5 MMOL/L Aristeo Test ART LINE YES-POS Blood Gas Ventilator Setting YES YES Blood Gas Inspired Oxygen 100% 100 Physical Exam Physical Exam Vital Signs Vital Signs - First Documented 02/11/20 02/11/20 02/12/20 15:29 18:19 04:00 Temp 36.4 Pulse 158 Resp 30 B/P (MAP) 127/83 (98) Pulse Ox 96 O2 Delivery Nasal Cannula O2 Flow Rate 3.00 FiO2 100 Capillary Refill : Less Than 3 Seconds Height, Weight, BMI Height: 6'2.00" Weight: 217lbs. 6.0oz. 98.292260gr; 26.48 BMI Method: General Appearance: Other (sedated on vent) Eyes: Bilateral Eye Normal Inspection, Bilateral Eye PERRL, Bilateral Eye EOMI HEENT: Pharynx Normal Neck: Normal Inspection, Supple Respiratory: Lungs Clear, Normal Breath Sounds, No Respiratory Distress Cardiovascular: No Edema, Tachycardia (regular rhythm) Gastrointestinal: Soft, Abnormal Bowel Sounds (hypoactive), Distended; No Guarding, No Rebound; Tenderness Extremity: Normal Inspection, Non Tender, No Pedal Edema Skin: Normal Color, Warm/Dry A/P-Cardiology Admission Diagnosis Acute respiratory failure Hypotensive shock Acute renal failure Metabolic acidosis Assessment/Plan Acute respiratory failure ventilator dependent, difficulty in maintaining adequate oxygenation. Managed by Dr. Gaytan Hypotensive shock, probably septic shock. Received 7 L of fluid and on multiple pressors we will continue to titrate pressors to achieve adequate heart rate and blood pressure control Status post ventricular tachycardia, ventricular fibrillation, required shock and started on amiodarone drip. I will continue on the IV drip for now. Status post recent incisional hernia repair done on February 10, 2020. Sinus tachycardia, probably secondary to sepsis, septic shock and pressors. Continue to monitor and titrate the drip Acute renal failure, receiving IV fluid, monitor renal function Metabolic acidosis, lactic acidosis and electrolytes in balance, working on correcting electrolyte imbalance. History of bipolar disorder. Clinical Quality Measures DVT/VTE Risk/Contraindication: Risk Factor Score Per Nursin RFS Level Per Nursing on Admit: 4+=Very High CHAPO RODRIGUEZ MD Feb 12, 2020 08:29
[2020-02-12] MEDS: CALCIUM ACETATE 667 MG CAP (PHOSLO) PO SCH ×3 (08:44→18:18)
[2020-02-12 08:54] LABS: BASOPHILS % (AUTO) 1 % (0-10); EOSINOPHILS # (AUTO) 0.1 10^3/uL (0.0-0.3); EOSINOPHILS % (AUTO) 1 % (0-10); HEMATOCRIT 46 % (40-54); HEMOGLOBIN 15.4 g/dL (13.3-17.7); LYMPHOCYTES # (AUTO) 0.3 10^3/uL (1.0-4.0); LYMPHOCYTES % (AUTO) 5 % (12-44); MEAN CORPUSCULAR HEMOGLOBIN 33 pg (25-34); MEAN CORPUSCULAR HGB CONC 33 g/dL (32-36); MEAN CORPUSCULAR VOLUME 99 fL (80-99); MEAN PLATELET VOLUME 9.9 fL (9.0-12.2); MONOCYTES # (AUTO) 0.5 10^3/uL (0.0-1.0); MONOCYTES % (AUTO) 7 % (0-12); NEUTROPHILS # (AUTO) 6.1 10^3/uL (1.8-7.8); NEUTROPHILS % (AUTO) 86 % (42-75); PLATELET COUNT 276 10^3/uL (130-400); WHITE BLOOD COUNT 7.1 10^3/uL (4.3-11.0)
--- NOTE | 2020-02-12 08:55 | NUR ---
Dr. Gaytan notified of urine output of 5cc since 0600
[2020-02-12] MEDS: LACTATED RINGERS 1,000 ML IV SCH ×2 (09:07→17:54)
--- NOTE | 2020-02-12 09:15 | NUR ---
Dr. Gaytan down to talk to et mother at ED entrance
--- NOTE | 2020-02-12 09:20 | NUR ---
Dr. Benitez at bedside.
[2020-02-12] MEDS ORDERED: NS IV 500 ML 500 ML ONE (09:38)
--- NOTE | 2020-02-12 10:00 | NUR ---
Dr. Benitez stated Dr. Monsalve will be here in approx 10 min et plan to take pt to OR
--- NOTE | 2020-02-12 10:30 | NUR ---
Pt sat reading 73% - attempted to change probe without improvement, called RT. Rt in room et began bagging pt. Dr. Gaytan, Dr. Monsalve, et Dr. Waddell to room. Protable pulse ox placed on finger et reading 97%. 1035- Dr. Monsalve removed enrique from LUQ site et Dr. Waddell at bedside. Incision opened et Dr. Waddell tunneled incision site. Medium brown liquid came from abd wound, suctioned given to Dr. Waddell et wound suctioned - total of 330mL suctioned from site 1049 - Still bagging pt et taken to OR
[2020-02-12] MEDS: SODIUM BICARBONATE 8.4% VIAL 150 MEQ in D5W 1000 ML IV SOLUTION 1,000 ML IV SCH ×3 (11:39→20:07)
[2020-02-12 12:28] LABS: BASOPHILS % (AUTO) 0 % (0-10); EOSINOPHILS % (AUTO) 0 % (0-10); HEMATOCRIT 39 % (40-54); HEMOGLOBIN 12.8 g/dL (13.3-17.7); LYMPHOCYTES # (AUTO) 0.7 10^3/uL (1.0-4.0); LYMPHOCYTES % (AUTO) 8 % (12-44); MEAN CORPUSCULAR HEMOGLOBIN 34 pg (25-34); MEAN CORPUSCULAR HGB CONC 33 g/dL (32-36); MEAN CORPUSCULAR VOLUME 102 fL (80-99); MEAN PLATELET VOLUME 10.1 fL (9.0-12.2); MONOCYTES # (AUTO) 0.8 10^3/uL (0.0-1.0); MONOCYTES % (AUTO) 9 % (0-12); NEUTROPHILS # (AUTO) 7.3 10^3/uL (1.8-7.8); NEUTROPHILS % (AUTO) 81 % (42-75); PLATELET COUNT 212 10^3/uL (130-400); WHITE BLOOD COUNT 8.9 10^3/uL (4.3-11.0)
[2020-02-12] MEDS ORDERED: ACETAMINOPHEN 650 MG SUPP (TYLENOL) PR PRN (12:30)
--- NOTE | 2020-02-12 12:30 | NUR ---
1209 - Pt off elevator with OR staff, OR staff performing compressions, stated by dropped HR on why up from OR 1210 - Dr. Gaytan, et Dr. Waddell in room with pt. Pt connected to bedside Zoll, 1amp epi given IVP 1211 - Pulse check - pulse felt. Pulse check, no pulse, resume compressions 1212 - 1amp bicarb given - ROSC achieved. Compressions stopped. Dr. Monsalve in room. 1214 - Labs drawn 1223 - X-ray obtained
[2020-02-12] MEDS ORDERED: LORazepam INJ 2 MG/ML (ATIVAN) VIAL IV STA (12:33)
[2020-02-12] MEDS ORDERED: ROCURONIUM 10 MG/ML 5 ML SYRINGE IV STA (12:33)
[2020-02-12] MEDS ORDERED: MAG SULFATE 2 GM/50 ML IV PRE-MIX BAG IV STA (12:33)
[2020-02-12] MEDS ORDERED: fentaNYL INJECTION 100 MCG/2 ML AMP IV STA (12:33)
[2020-02-12 12:35] LABS: ALBUMIN 1.7 GM/DL (3.2-4.5)
[2020-02-12 12:37] LABS: TOTAL PROTEIN 3.2 GM/DL (6.4-8.2)
[2020-02-12 12:39] LABS: BILIRUBIN,TOTAL 0.6 MG/DL (0.1-1.0)
[2020-02-12 12:40] LABS: PHOSPHORUS 6.6 MG/DL (2.3-4.7)
[2020-02-12 12:41] LABS: CREATININE SERUM 2.79 MG/DL (0.60-1.30)
[2020-02-12] MEDS ORDERED: MAGNESIUM 1 GM/100 ML IVPB 100 ML IV ONE ×2 (12:43→12:52)
[2020-02-12 12:44] LABS: MAGNESIUM 1.7 MG/DL (1.6-2.4)
[2020-02-12] MEDS ORDERED: ROCURONIUM 50 MG/5 ML (ZEMURON) VIAL IV ONE (12:44)
[2020-02-12 12:45] LABS: ABG BASE EXCESS -5.8 MMOL/L (-2.5-2.5); ABG OXYGEN SATURATION 98 % (94-100); ABG PCO2 67 MMHG (35-45); ABG PO2 153 MMHG (79-93); ABG TCO2 23.3 MMOL/L (21.0-31.0)
[2020-02-12] MEDS ORDERED: SODIUM PHOSPHATE INJ 30 MM in NS (IVPB) 250 ML IV PRN (12:45)
[2020-02-12] MEDS ORDERED: ARTIFICIAL TEARS OINT (LACRI-LUBE) 3.5 GM TUBE OU PRN ×2 (12:45)
[2020-02-12] MEDS ORDERED: fentaNYL INJECTION 1,250 MCG in NS (IVPB) 225 ML IV SCH (12:45)
[2020-02-12] MEDS ORDERED: ROCURONIUM 50 MG/5 ML (ZEMURON) VIAL IV PRN (12:45)
[2020-02-12] MEDS ORDERED: CALCIUM CHLORIDE 10% INJECTION 1 GM in NS (IVPB) 100 ML IV PRN (12:45)
[2020-02-12] MEDS ORDERED: LORazepam INJECTION FOR DRIP 20 MG in D5W 100 ML IVPB 90 ML IV SCH (12:45)
--- NOTE | 2020-02-12 12:47 | Diagnostic Imaging Report ---
EXAM: CHEST 1 VIEW, AP/PA ONLY INDICATION: Post code. COMPARISON: Chest radiograph 02/12/2020. FINDINGS: Elevation of the right hemidiaphragm. The previously seen air under the right hemidiaphragm is no longer seen. ETT tip at the level of clavicles. NG tube tip and side-port within the stomach. Stable airspace consolidation at the right lung base. No pleural effusion or pneumothorax. No acute osseous findings. IMPRESSION: 1. Support lines in the expected positions. 2. Stable elevation of the right hemidiaphragm with some airspace consolidation in the right lung base. 3. The previously seen air density layering under the right hemidiaphragm is no longer present. Dictated by: Dictated on workstation # [id number]
--- NOTE | 2020-02-12 12:48 | Diagnostic Imaging Report ---
Portable erect AP chest at 12:27. Indication: Postoperative code The heart size is within normal limits and stable when compared to the exam performed earlier today at 12:22 PM. The atelectasis/infiltrate in the right lung base and the elevated right hemidiaphragm seen previously are again evident and no different. The lungs are otherwise generally clear. The mediastinum is not widened. The osseous structures are intact. The supportive tubes and lines seen previously are again evident and similar in position. Impression: Stable chest. There has been no adverse change when compared to the prior study. Dictated by: Dictated on workstation # [id number]
[2020-02-12] MEDS ORDERED: fentaNYL DRIP PRE-MIX 250 ML IV ONE (12:49)
--- NOTE | 2020-02-12 12:52 | Progress Note - Hospitalist ---
Subjective HPI/CC On Admission Date Seen by Provider: Feb 12, 2020 Time Seen by Provider: 09:15 Nain Espinoza is a 55 year old male who presented after an appointment with his primary care doctor revealed a significant tachycardia. Yesterday he underwent an incisional hernia repair with Dr. Waddell which was uncomplicated. He was fou nd to be tachycardic to the 150s. He was sent to the emergency room. He reports abdominal pain around the incision which is 8/10. He denies any nausea or vomiting. He reports having chills last night but did not check his temperature. He reports shortness of breath, but he thinks this was due to the abdominal binder being very tight. He denies cough. He denies palpitations. He denies chest pain. Subjective/Events-last exam He is intubated and sedated. Focused Exam Lactate Level 02/12/20 00:43: Lactic Acid Level 7.59*H 02/12/20 06:19: Lactic Acid Level 4.68*H 02/12/20 12:16: Lactic Acid Level Laboratory Tests Test 02/12/20 12:16 Objective Exam Vital Signs Vital Signs Date Time Temp Pulse Resp B/P (MAP) Pulse Ox O2 Delivery O2 Flow Rate FiO2 02/12/20 11:00 147 36 119/92 98 Mechanical Ventilator 02/12/20 10:19 36.8 6.00 02/12/20 08:49 100 Capillary Refill : Less Than 3 Seconds General Appearance: No Apparent Distress, Obese Respiratory: Decreased Breath Sounds, Respiratory Distress (tachypnea) Cardiovascular: Tachycardia (regular rhythm) Gastrointestinal: Abnormal Bowel Sounds (hypoactive), Distended (firm) Extremity: Normal Inspection, Non Tender, No Pedal Edema Neurologic/Psychiatric: Other (sedated) Skin: Warm/Dry, Mottled Results/Procedures Lab Laboratory Tests 02/11/20 15:42 02/11/20 21:25 02/12/20 00:43 02/12/20 01:15 02/12/20 02:44 02/12/20 08:32 02/12/20 12:16 Patient resulted labs reviewed. Imaging: Reviewed Imaging Films, Reviewed Imaging Report Assessment/Plan Assessment and Plan Assess & Plan/Chief Complaint Septic shock s/p incisional hernia repair Perforated bowel s/p small bowel resection Cardiac arrest Acute respiratory failure with hypoxia and hypercapnia Endotracheally intubated Lactic acidosis High anion gap metabolic acidosis Acute kidney injury Shock liver Poor prognosis Surgery consulted, Drs. Waddell and Bello notified, appreciate assistance CT Abdomen with free air, intraabdominal fluid, abscess vs seroma, dilated proximal small bowel Attempted to take to surgery overnight, but had cardiac arrest prior to beginning, ROSC achieved Pulmonology consulted, Dr. Gaytan, appreciate assistance Started on pressors; currently maxed on Levophed, Neosynephrine, and Vasopressin Started on stress dose steroids Intubated with very high vent settings Continue IV fluids Monitor I/O Continue Vancomycin and Zosyn Blood cultures pending Cardiology consulted, Dr. Ardon, appreciate assistance Echocardiogram showed elevated ejection fraction consistent with septic/hypovolemic shock, no right heart strain or other indication of pulmonary embolism Underwent open exploratory laparotomy 02/11, revealed bowel perforation, underwent washout and small bowel resection, temporary closure with likely repeat washout in coming days Second cardiac arrest upon returning from OR, ROSC achieved Beginning [facility] for hypothermia protocol Heparin discontinued, pulmonary embolism unlikely DVT Prophylaxis: Lovenox Diagnosis/Problems Diagnosis/Problems (1) Septic shock Status: Acute (2) Lactic acidosis Status: Acute (3) CORBY (acute kidney injury) Status: Acute (4) High anion gap metabolic acidosis Status: Acute (5) S/P hernia surgery Status: Acute (6) Cardiac arrest Status: Acute (7) S/P small bowel resection Status: Acute (8) Perforated small intestine Status: Acute (9) Acute respiratory failure with hypoxia and hypercapnia Status: Acute (10) Endotracheally intubated Status: Acute (11) Hyperphosphatemia Status: Acute (12) Shock liver Status: Acute (13) Poor prognosis Status: Acute Clinical Quality Measures DVT/VTE Risk/Contraindication: Risk Factor Score Per Nursin RFS Level Per Nursing on Admit: 4+=Very High HERNANDO KNAPP MD Feb 12, 2020 12:52
[2020-02-12 12:53] LABS: ABG PH 7.14 (7.37-7.43); ALLENS TEST ARTLINE
[2020-02-12 12:54] LABS: INSPIRED O2 100%; PATIENT TEMP 39.1; VENTILATOR YES
--- NOTE | 2020-02-12 12:55 | Pulmonary Progress Note ---
Subjective Date Seen by a Provider: Feb 12, 2020 Time Seen by a Provider: 12:55 Subjective/Events-last exam PT returns from OR and is in cardiac arrest upon presentation. Sepsis Event Evaluation Height, Weight, BMI Height: 6'2.00" Weight: 217lbs. 6.0oz. 98.378660lc; 26.48 BMI Method: Focused Exam Lactate Level 02/12/20 00:43: Lactic Acid Level 7.59*H 02/12/20 06:19: Lactic Acid Level 4.68*H 02/12/20 12:16: Lactic Acid Level Laboratory Tests Test 02/12/20 12:16 Exam Exam Vital Signs Date Time Temp Pulse Resp B/P (MAP) Pulse Ox O2 Delivery O2 Flow Rate FiO2 02/12/20 11:00 147 36 119/92 98 Mechanical Ventilator 02/12/20 10:19 36.8 152 36 126/97 94 Mechanical Ventilator 6.00 02/12/20 10:19 152 126/97 02/12/20 10:00 152 36 126/97 94 Mechanical Ventilator 02/12/20 09:00 154 36 105/82 92 Mechanical Ventilator 02/12/20 08:49 91 Mechanical Ventilator 100 02/12/20 08:37 147 82/62 02/12/20 08:18 36.8 02/12/20 08:00 36.7 02/12/20 08:00 152 35 99/76 Mechanical Ventilator 02/12/20 07:40 147 82/62 02/12/20 07:19 147 36 86 100 02/12/20 07:11 37.6 138 31 63/49 88 6.00 02/12/20 07:00 137 27 80/62 88 Mechanical Ventilator 02/12/20 07:00 147 02/12/20 06:56 63/49 02/12/20 06:12 75/56 02/12/20 06:11 83/59 02/12/20 06:03 73/51 02/12/20 06:00 138 31 93/72 88 High Flow N/C 6.00 02/12/20 05:56 74/49 02/12/20 05:50 78/54 02/12/20 05:48 76/53 02/12/20 05:39 75/51 02/12/20 05:27 83/65 02/12/20 05:16 62/51 02/12/20 05:12 69/53 02/12/20 05:00 131 23 99/80 86 High Flow N/C 6.00 02/12/20 04:52 86/70 02/12/20 04:51 87/71 02/12/20 04:39 100/80 02/12/20 04:09 142 94/70 02/12/20 04:00 87 Mechanical Ventilator 100 02/12/20 04:00 142 27 111/69 82 High Flow N/C 6.00 02/12/20 03:00 141 14 152/80 83 High Flow N/C 6.00 02/12/20 01:05 High Flow N/C 6.00 02/12/20 01:00 161 113/95 96 High Flow N/C 4.00 02/12/20 01:00 162 02/12/20 00:05 High Flow N/C 4.00 02/12/20 00:00 163 45 125/87 95 High Flow N/C 2.00 02/11/20 23:37 37.6 02/11/20 23:22 95 Nasal Cannula 2.00 02/11/20 23:00 158 29 121/88 95 High Flow N/C 2.00 02/11/20 22:00 158 40 112/85 95 High Flow N/C 2.00 02/11/20 21:00 152 41 138/96 95 High Flow N/C 2.00 02/11/20 20:45 158 41 130/81 95 High Flow N/C 2.00 02/11/20 20:15 147 38 126/103 93 High Flow N/C 2.00 02/11/20 20:00 High Flow N/C 2.00 02/11/20 20:00 36.2 02/11/20 20:00 95 Nasal Cannula 2.00 02/11/20 19:45 134 35 124/99 100 High Flow N/C 6.00 02/11/20 19:40 99 High Flow N/C 6.00 02/11/20 19:30 135 36 133/98 98 High Flow N/C 6.00 02/11/20 19:15 125 25 132/92 100 High Flow N/C 6.00 02/11/20 19:00 135 25 132/92 100 High Flow N/C 6.00 02/11/20 18:40 133 02/11/20 18:19 147 45 109/64 (98) 96 Nasal Cannula 3.00 02/11/20 15:29 36.4 158 30 127/83 (98) 96 I & O 02/12/20 07:00 Intake Total 5370 ml Output Total 520 ml Balance 4850 ml Height & Weight Height: 6'2.00" Weight: 217lbs. 6.0oz. 98.475338vb; 26.48 BMI Method: General Appearance: Other (sedated on vent) HEENT: Pharynx Normal, Other (Pupils are unequal and slugish to light. ) Neck: Normal Inspection, Supple Respiratory: Lungs Clear, Normal Breath Sounds, No Respiratory Distress Cardiovascular: No Edema, Tachycardia (regular rhythm) Capillary Refill: Less Than 3 Seconds Gastrointestinal: soft, distended Extremity: Normal Inspection, Non Tender, No Pedal Edema Skin: Normal Color, Warm/Dry Results Lab Laboratory Tests 02/11/20 15:42 02/11/20 21:25 02/12/20 00:43 02/12/20 01:15 02/12/20 02:44 02/12/20 08:32 02/12/20 12:16 Assessment/Plan Assessment/Plan Acute respiratory failure s/p Cardiac arrest. -Anesthesia Dr. Monsalve, Dr. Waddell, and Dr. Benitez are currently at bedside. -Intubated on vent Acute septic abdomen secondary to perforation s/p ex lab with repair -Continue Vanco, Zosyn and Diflucan for now -leon cultures -IVF After repeat surgery pt went into cardiac arrest on transport back to ICU. -Discussed with all doctors involved in care and we all agree to proceed with theraputic hypothermia with goal temp of 36 deg x 24hrs. S/p Lap incarcerated incisional hernia repair POD 2 S/p CODE Vtach septic Shock -Currently on Levophed, Vasopressin -Cardiology following -- Discussed with Dr. Ardon -Stat echo - does not show elevated right sided pressures or elevated PAP. Dr. Ardon and I both agree unlikely to be PE -Continue Vanco, diflucan and Zosyn -Leon cultures pending Acute renal failure with metabolic acidosis and hyperphos -Continue bicarb gtt s/p bicarb push -Repeat labs at 1300 Metabolic lactic acidosis -IVF -Give another liter bolus of NS Hx of Bipolar -Hold psych meds for now Critical Care: Critically Ill Patient Time spent with patient (mins): 60 EZEQUIEL MAHARAJ DO Feb 12, 2020 12:55
--- NOTE | 2020-02-12 12:58 | Anesthesia-Procedure Note ---
Procedures/Interventions Procedure Start/Stop/Diagnosis Date of Procedure: Feb 12, 2020 Start Time: 12:45 Stop Time: 12:50 Arterial Line Arterial Line Catheter: 20G Type: Radial Location: Right Procedure: prepped, draped in sterile fashion, 1% lidocaine used to numb region, good wave-form was obtained, patient tolerated procedure well, no immediate complications, post procedure area cleaned, post procedure dressing applied TYRA FERNANDES CRNA Feb 12, 2020 12:58
--- NOTE | 2020-02-12 13:00 | NUR ---
Spoke with Dr. aGytan regarding Artic Sun protocol and the "absolute Exclusion criteria" d. - pt requiring more than one pressor. Order to go ahead with Artic Sun protocol despite that.
[2020-02-12 13:02] LABS: ALBUMIN 1.8 GM/DL (3.2-4.5)
[2020-02-12 13:05] LABS: TOTAL PROTEIN 3.2 GM/DL (6.4-8.2)
[2020-02-12 13:07] LABS: BILIRUBIN,TOTAL 0.7 MG/DL (0.1-1.0)
--- NOTE | 2020-02-12 13:10 | NUR ---
Dr. Gaytan stated to set target temp on artic sun to 36.0
[2020-02-12 13:11] LABS: BILIRUBIN,DIRECT 0.5 MG/DL (0.0-0.3); BILIRUBIN,INDIRECT 0.2 MG/DL
[2020-02-12 13:24] LABS: FIBRINOGEN 552 MG/DL (221-496); INR 1.7 (0.8-1.4); PARTIAL THROMBOPLASTIN TIME 56 SEC (24-35); PROTHROMBIN TIME PATIENT 20.7 SEC (12.2-14.7)
[2020-02-12] MEDS: MAGNESIUM SULFATE DRIP 500 ML IV SCH (13:25)
--- NOTE | 2020-02-12 13:35 | NUR ---
Dr. Gaytan notified of recent labs, including lactic, Ca, and ABG. Spoke with him about artic [place] electrolyte replacement protocol since pt creat is over 2.0. Order to only give the initial 2gr Mg and the 500mg Ca and to recheck labs per protocol.
--- NOTE | 2020-02-12 13:37 | NUR ---
Artic sun on et started
[2020-02-12 13:41] LABS: FIBRIN DEGRADATION PRODUCTS > 20.00 UG/ML (0.00-0.49)
[2020-02-12] MEDS: PANTOPRAZOLE 40 MG (PROTONIX) VIAL IV SCH ×2 (13:42→20:06)
[2020-02-12] MEDS: FLUCONAZOLE 200 MG/100 ML 50 ML, EMPTY IV BAG (PVC) 1 EA IV SCH ×2 (13:42)
[2020-02-12] MEDS: ARTIFICIAL TEARS OINT (LACRI-LUBE) 3.5 GM TUBE OU SCH ×2 (13:43→18:18)
[2020-02-12] MEDS: LORazepam INJECTION FOR DRIP 20 MG in D5W 100 ML IVPB 90 ML IV SCH ×2 (13:44→22:30)
[2020-02-12] MEDS: fentaNYL 1,250 MCG/NS 250 ML DRIP IV SCH (13:45)
[2020-02-12] MEDS: busPIRone 15 MG (BUSPAR) TABLET GT SCH ×2 (14:10→21:57)
[2020-02-12] MEDS: ALBUMIN 25% 25 GM/100 ML 100 ML IV SCH ×2 (14:11→21:57)
[2020-02-12] MEDS ORDERED: CALCIUM CHLORIDE IV ONE (14:15)
[2020-02-12] MEDS ORDERED: NS IV ONE (14:15)
[2020-02-12 14:21] VITALS: BP 128/98
[2020-02-12] MEDS: RT-ALBUTEROL/IPRATROPIUM 3 ML (DUONEB) VIAL INH SCH ×3 (14:21→22:12)
--- NOTE | 2020-02-12 15:26 | NUR ---
Dr. Benitez at bedside
--- NOTE | 2020-02-12 15:38 | NUR ---
called et updated on status
[2020-02-12] MEDS ORDERED: TROUGH ORDER-PHARMACY XX ONE (16:00)
[2020-02-12] MEDS ORDERED: NS 1000 ML IV BAG IV ONE (16:39)
[2020-02-12] MEDS ORDERED: EPINEPHrine 0.1 MG/ML 10 ML (HOSPIRA) SYR INJ ONE (16:39)
[2020-02-12] MEDS ORDERED: VANCOMYCIN 1250 MG/NS 250 ML IVPB IV SCH ×2 (17:00)
--- NOTE | 2020-02-12 17:37 | Progress Note-Post Operative ---
Post-Operative Progess Note Surgeon (s)/Buggy Man (s) Surgeon KEGAAN MAYA DO Buggy Man: Dr. Monsalve Pre-Operative Diagnosis abdominal compartent syndrome Post-Operative Diagnosis abdominal compartement syndrome, small bowel perforation Procedure & Operative Findings Date of Procedure 02/12/20 Procedure Performed/Findings Exploratory laparotomy with washout, small bowel resection, removal of contaminated mesh, placement abthera vac. Anesthesia Type general Estimated Blood Loss Estimated blood loss (mL): minimal Specimens/Packing Specimens Removed small bowel, mesh KEAGAN MAYA DO Feb 12, 2020 17:36
--- NOTE | 2020-02-12 17:43 | Progress Note - Surgery ---
Subjective Date Seen by a Provider: Feb 12, 2020 Time Seen by a Provider: 10:15 Subjective/Events-last exam Patient with significant abdominal distention now. On pressors. Bladder pressure 21. No significant urine output. Discussed with Dr. Waters. Focused Exam Lactate Level 02/12/20 00:43: Lactic Acid Level 7.59*H 02/12/20 06:19: Lactic Acid Level 4.68*H 02/12/20 12:16: Lactic Acid Level 6.17*H Objective Exam Vital Signs Date Time Temp Pulse Resp B/P (MAP) Pulse Ox O2 Delivery O2 Flow Rate FiO2 02/12/20 17:09 129 83/68 02/12/20 17:07 37.7 02/12/20 17:00 36.5 101 26 103/86 100 Mechanical Ventilator 02/12/20 16:52 37.9 02/12/20 16:37 38.0 02/12/20 16:22 38.1 02/12/20 16:17 100 Mechanical Ventilator 85 02/12/20 16:07 38.2 02/12/20 16:02 129 83/68 02/12/20 16:00 37.5 115 25 85/69 100 Mechanical Ventilator 02/12/20 15:52 38.3 02/12/20 15:37 38.4 02/12/20 15:22 38.6 02/12/20 15:07 38.8 02/12/20 15:00 38.4 129 25 129/104 100 Mechanical Ventilator 02/12/20 14:52 39.0 02/12/20 14:37 39.0 02/12/20 14:22 39.1 02/12/20 14:21 134 26 100 85 02/12/20 14:14 147 119/92 02/12/20 14:07 39.1 02/12/20 14:00 38.9 134 25 128/98 100 Mechanical Ventilator 02/12/20 13:52 39.1 02/12/20 13:37 39.2 02/12/20 13:10 38.9 26 98 Mechanical Ventilator 02/12/20 13:10 Mechanical Ventilator 02/12/20 13:00 26 100 Mechanical Ventilator 02/12/20 13:00 141 02/12/20 13:00 39.3 137 25 111/91 100 Mechanical Ventilator 02/12/20 12:55 Mechanical Ventilator 02/12/20 12:50 39.3 26 100 Mechanical Ventilator 02/12/20 12:40 Mechanical Ventilator 02/12/20 12:40 26 100 Mechanical Ventilator 02/12/20 12:30 93 Mechanical Ventilator 100 02/12/20 12:30 26 94 Mechanical Ventilator 02/12/20 12:25 Mechanical Ventilator 02/12/20 12:20 26 94 Mechanical Ventilator 02/12/20 12:10 39.1 26 02/12/20 12:10 Mechanical Ventilator 02/12/20 12:00 140 26 94/61 100 Mechanical Ventilator 02/12/20 11:00 147 36 119/92 98 Mechanical Ventilator 02/12/20 10:19 36.8 152 36 126/97 94 Mechanical Ventilator 6.00 02/12/20 10:19 152 126/97 02/12/20 10:00 152 36 126/97 94 Mechanical Ventilator 02/12/20 09:00 154 36 105/82 92 Mechanical Ventilator 02/12/20 08:49 91 Mechanical Ventilator 100 02/12/20 08:37 147 82/62 02/12/20 08:18 36.8 02/12/20 08:00 36.7 02/12/20 08:00 152 35 99/76 Mechanical Ventilator 02/12/20 07:40 147 82/62 02/12/20 07:19 147 36 86 100 02/12/20 07:11 37.6 138 31 63/49 88 6.00 02/12/20 07:00 137 27 80/62 88 Mechanical Ventilator 02/12/20 07:00 147 02/12/20 06:56 63/49 02/12/20 06:12 75/56 02/12/20 06:11 83/59 02/12/20 06:03 73/51 02/12/20 06:00 138 31 93/72 88 High Flow N/C 6.00 02/12/20 05:56 74/49 02/12/20 05:50 78/54 02/12/20 05:48 76/53 02/12/20 05:39 75/51 02/12/20 05:27 83/65 02/12/20 05:16 62/51 02/12/20 05:12 69/53 02/12/20 05:00 131 23 99/80 86 High Flow N/C 6.00 02/12/20 04:52 86/70 02/12/20 04:51 87/71 02/12/20 04:39 100/80 02/12/20 04:09 142 94/70 02/12/20 04:00 87 Mechanical Ventilator 100 02/12/20 04:00 142 27 111/69 82 High Flow N/C 6.00 02/12/20 03:00 141 14 152/80 83 High Flow N/C 6.00 02/12/20 01:05 High Flow N/C 6.00 02/12/20 01:00 161 113/95 96 High Flow N/C 4.00 02/12/20 01:00 162 02/12/20 00:05 High Flow N/C 4.00 02/12/20 00:00 163 45 125/87 95 High Flow N/C 2.00 02/11/20 23:37 37.6 02/11/20 23:22 95 Nasal Cannula 2.00 02/11/20 23:00 158 29 121/88 95 High Flow N/C 2.00 02/11/20 22:00 158 40 112/85 95 High Flow N/C 2.00 02/11/20 21:00 152 41 138/96 95 High Flow N/C 2.00 02/11/20 20:45 158 41 130/81 95 High Flow N/C 2.00 02/11/20 20:15 147 38 126/103 93 High Flow N/C 2.00 02/11/20 20:00 High Flow N/C 2.00 02/11/20 20:00 36.2 02/11/20 20:00 95 Nasal Cannula 2.00 02/11/20 19:45 134 35 124/99 100 High Flow N/C 6.00 02/11/20 19:40 99 High Flow N/C 6.00 02/11/20 19:30 135 36 133/98 98 High Flow N/C 6.00 02/11/20 19:15 125 25 132/92 100 High Flow N/C 6.00 02/11/20 19:00 135 25 132/92 100 High Flow N/C 6.00 02/11/20 18:40 133 02/11/20 18:19 147 45 109/64 (98) 96 Nasal Cannula 3.00 I & O 02/12/20 06:59 Intake Total 5370 ml Output Total 520 ml Balance 4850 ml Capillary Refill : Less Than 3 Seconds General Appearance: Obese, Other (intubated) HEENT: Pharynx Normal Neck: Normal Inspection, Supple Respiratory: Decreased Breath Sounds, Other (intubated) Cardiovascular: Tachycardia (regular rhythm) Gastrointestinal: distended (significant distention tight abdomen.), tenderness (incisions c/d/i ) Extremity: Normal Inspection, Non Tender, No Pedal Edema Neurologic/Psychiatric: Alert, Oriented x3, Other (sedated) Skin: Mottled Lymphatic: No Adenopathy Results Lab Laboratory Tests 02/11/20 18:00: Lactic Acid Level 5.67*H 02/11/20 21:25: Lactic Acid Level 5.55*H, White Blood Count 8.5, Red Blood Count 5.12, Hemoglobin 17.0, Hematocrit 50, Mean Corpuscular Volume 97, Mean Corpuscular Hemoglobin 33, Mean Corpuscular Hemoglobin Concent 34, Red Cell Distribution Width 13.2, Platelet Count 301, Mean Platelet Volume 10.0, Immature Granulocyte % (Auto) 0, Neutrophils (%) (Auto) 88H, Lymphocytes (%) (Auto) 6L, Monocytes (%) (Auto) 5, Eosinophils (%) (Auto) 0, Basophils (%) (Auto) 0, Neutrophils # (Auto) 7.5, Lymphocytes # (Auto) 0.5L, Monocytes # (Auto) 0.4, Eosinophils # (Auto) 0.0, Basophils # (Auto) 0.0, Immature Granulocyte # (Auto) 0.0, Activated Partial Thromboplast Time 79H, Sodium Level 137, Potassium Level 3.7, Chloride Level 103, Carbon Dioxide Level 17L, Anion Gap 17H, Blood Urea Nitrogen 29H, Creatinine 2.19H, Estimat Glomerular Filtration Rate 32, BUN/Creatinine Ratio 13, Glucose Level 114H, Calcium Level 8.5 02/11/20 23:32: Lactic Acid Level 5.55*H 02/12/20 00:43: Lactic Acid Level 7.59*H, White Blood Count 8.1, Red Blood Count 5.24, Hemoglobin 17.3, Hematocrit 51, Mean Corpuscular Volume 97, Mean Corpuscular Hemoglobin 33, Mean Corpuscular Hemoglobin Concent 34, Red Cell Distribution Width 13.3, Platelet Count 296, Mean Platelet Volume 11.0, Immature Granulocyte % (Auto) 0, Neutrophils (%) (Auto) 86H, Lymphocytes (%) (Auto) 7L, Monocytes (%) (Auto) 6, Eosinophils (%) (Auto) 1, Basophils (%) (Auto) 1, Neutrophils # (Auto) 6.9, Lymphocytes # (Auto) 0.5L, Monocytes # (Auto) 0.5, Eosinophils # (Auto) 0.1, Basophils # (Auto) 0.1, Immature Granulocyte # (Auto) 0.0, Sodium Level 134L, Potassium Level 6.9#*H, Chloride Level 103, Carbon Dioxide Level 14L, Anion Gap 17H, Blood Urea Nitrogen 31H, Creatinine 2.37H, Estimat Glomerular Filtration Rate 29, BUN/Creatinine Ratio 13, Glucose Level 114H, Calcium Level 8.2L, Urine Color YELLOW, Urine Clarity CLEAR, Urine pH 6.0, Urine Specific [place] 1.010L, Urine Protein 1+H, Urine Glucose (UA) NEGATIVE, Urine Ketones NEGATIVE, Urine Nitrite NEGATIVE, Urine Bilirubin 1+H, Urine Urobilinogen 0.2, Urine Leukocyte Esterase TRACEH, Urine RBC (Auto) 1+H, Urine RBC 5-10H, Urine WBC 2-5, Urine Squamous Epithelial Cells 0-2, Urine Crystals NONE, Urine Bacteria FEWH, Urine Casts NONE, Urine Mucus SMALLH, Urine Culture Indicated YES, Phosphorus Level 3.4, Magnesium Level 1.7, Urine Opiates Screen POSITIVEH, Urine Oxycodone Screen NEGATIVE, Urine Methadone Screen NEGATIVE, Urine Propoxyphene Screen NEGATIVE, Urine Barbiturates Screen NEGATIVE, Ur Tricyclic Antidepressants Screen NEGATIVE, Urine Phencyclidine Screen NEGATIVE, Urine Amphetamines Screen NEGATIVE, Urine Methamphetamines Screen NEGATIVE, Urine Benzodiazepines Screen POSITIVEH, Urine Cocaine Screen NEGATIVE, Urine Cannabinoids Screen POSITIVEH 02/12/20 01:15: Sodium Level 138, Potassium Level 3.6, Chloride Level 103, Carbon Dioxide Level 15L, Anion Gap 20H, Blood Urea Nitrogen 31H, Creatinine 2.34H, Estimat Glomerular Filtration Rate 29, BUN/Creatinine Ratio 13, Glucose Level 118H, Calcium Level 8.1L 02/12/20 02:44: Sodium Level 142, Potassium Level 4.0, Chloride Level 103, Carbon Dioxide Level 12L, Anion Gap 27H, Blood Urea Nitrogen 33H, Creatinine 2.91#H, Estimat Glomerular Filtration Rate 23, BUN/Creatinine Ratio 11, Glucose Level 160H, Calcium Level 9.5, White Blood Count 10.6, Red Blood Count 4.52, Hemoglobin 15.0, Hematocrit 48, Mean Corpuscular Volume 105H, Mean Corpuscular Hemoglobin 33, Mean Corpuscular Hemoglobin Concent 32, Red Cell Distribution Width 13.3, Platelet Count 220, Mean Platelet Volume 10.5, Immature Granulocyte % (Auto) 1, Neutrophils (%) (Auto) 69, Lymphocytes (%) (Auto) 25, Monocytes (%) (Auto) 4, Eosinophils (%) (Auto) 0, Basophils (%) (Auto) 1, Neutrophils # (Auto) 7.3, Lymphocytes # (Auto) 2.7, Monocytes # (Auto) 0.5, Eosinophils # (Auto) 0.0, Basophils # (Auto) 0.1, Immature Granulocyte # (Auto) 0.1, Prothrombin Time 20.3H, INR Comment 1.7H, Activated Partial Thromboplast Time 59H, D-Dimer > 20.00*H, Corrected Calcium 10.8H, Phosphorus Level 10.9H, Magnesium Level 2.2, Total Bilirubin 1.1H, Direct Bilirubin 0.5H, Indirect Bilirubin 0.6, Aspartate Amino Transf (AST/SGOT) 26, Alanine Aminotransferase (ALT/SGPT) 23, Alkaline Phosphatase 47, Total Protein 4.5L, Albumin 2.4L 02/12/20 03:25: Blood Gas Puncture Site LEFT ART LINE, Blood Gas Patient Temperature 36.2, Arterial Blood pH 6.90*L, Arterial Blood Partial Pressure CO2 85*H, Arterial Blood Partial Pressure O2 76L, Arterial Blood HCO3 16*L, Arterial Blood Total CO2 18.8L, Arterial Blood Oxygen Saturation 75L, Arterial Blood Base Excess - 15.2L, Aristeo Test ART LINE, Blood Gas Ventilator Setting YES, Blood Gas Inspired Oxygen 100% 02/12/20 04:21: Blood Gas Puncture Site ART LINE, Blood Gas Patient Temperature 36.0, Arterial Blood pH 7.01*L, Arterial Blood Partial Pressure CO2 68H, Arterial Blood Partial Pressure O2 101H, Arterial Blood HCO3 17*L, Arterial Blood Total CO2 18.8L, Arterial Blood Oxygen Saturation 92L, Arterial Blood Base Excess -12.9L, Aristeo Test ART LINE, Blood Gas Ventilator Setting YES, Blood Gas Inspired Oxygen 100% 02/12/20 05:54: Coronavirus 2019 ([facility]) Negative 02/12/20 06:19: Lactic Acid Level 4.68*H 02/12/20 06:41: Blood Gas Puncture Site LEFT ARTLINE, Blood Gas Patient Temperature 36.9, Arterial Blood pH 7.18*L, Arterial Blood Partial Pressure CO2 59H, Arterial Blood Partial Pressure O2 78L, Arterial Blood HCO3 21L, Arterial Blood Total CO2 22.7, Arterial Blood Oxygen Saturation 88L, Arterial Blood Base Excess -6.3L, Aristeo Test ART LINE, Blood Gas Ventilator Setting YES, Blood Gas Inspired Oxygen 100% 02/12/20 08:05: Blood Gas Puncture Site L RAD, Blood Gas Patient Temperature 36.8, Arterial Blood pH 7.22*L, Arterial Blood Partial Pressure CO2 51H, Arterial Blood Partial Pressure O2 75L, Arterial Blood HCO3 20L, Arterial Blood Total CO2 21.7, Arterial Blood Oxygen Saturation 89L, Arterial Blood Base Excess -6.4L, Aristeo Test YES-POS, Blood Gas Ventilator Setting YES, Blood Gas Inspired Oxygen 100 02/12/20 08:32: White Blood Count 7.1, Red Blood Count 4.64, Hemoglobin 15.4, Hematocrit 46, Mean Corpuscular Volume 99, Mean Corpuscular Hemoglobin 33, Mean Corpuscular Hemoglobin Concent 33, Red Cell Distribution Width 13.5, Platelet Count 276, Mean Platelet Volume 9.9, Immature Granulocyte % (Auto) 1, Neutrophils (%) (Auto) 86H, Lymphocytes (%) (Auto) 5L, Monocytes (%) (Auto) 7, Eosinophils (%) (Auto) 1, Basophils (%) (Auto) 1, Neutrophils # (Auto) 6.1, Lymphocytes # (Auto) 0.3L, Monocytes # (Auto) 0.5, Eosinophils # (Auto) 0.1, Basophils # (Auto) 0.0, Immature Granulocyte # (Auto) 0.1 02/12/20 12:16: White Blood Count 8.9, Red Blood Count 3.82L, Hemoglobin 12.8L, Hematocrit 39L, Mean Corpuscular Volume 102H, Mean Corpuscular Hemoglobin 34, Mean Corpuscular Hemoglobin Concent 33, Red Cell Distribution Width 13.5, Platelet Count 212, Mean Platelet Volume 10.1, Immature Granulocyte % (Auto) 2, Neutrophils (%) (Auto) 81H, Lymphocytes (%) (Auto) 8L, Monocytes (%) (Auto) 9, Eosinophils (%) (Auto) 0, Basophils (%) (Auto) 0, Neutrophils # (Auto) 7.3, Lymphocytes # (Auto) 0.7L, Monocytes # (Auto) 0.8, Eosinophils # (Auto) 0.0, Basophils # (Auto) 0.0, Immature Granulocyte # (Auto) 0.2H, Prothrombin Time 20.7H, INR Comment 1.7H, Activated Partial Thromboplast Time 56H, Fibrinogen 552H, D-Dimer > 20.00*H, Sodium Level 142, Potassium Level 4.0, Chloride Level 107, Carbon Dioxide Level 20L, Anion Gap 15H, Blood Urea Nitrogen 35H, Creatinine 2.79H, Estimat Glomerular Filtration Rate 24, BUN/Creatinine Ratio 13, Glucose Level 127H, Lactic Acid Level 6.17*H, Calcium Level 6.0#*L, Corrected Calcium 7.8L, Phosphorus Level 6.6H, Magnesium Level 1.7, Total Bilirubin 0.7, Direct Bilir ubin 0.5H, Indirect Bilirubin 0.2, Aspartate Amino Transf (AST/SGOT) 356H, Alanine Aminotransferase (ALT/SGPT) 251H, Alkaline Phosphatase 27L, Total Creatine Kinase 6753H, Troponin I 0.521*H, Total Protein 3.2L, Albumin 1.8L, T riglycerides Level 92, Amylase Level 271H, Lipase 21 02/12/20 12:39: Blood Gas Puncture Site LT ARTLINE, Blood Gas Patient Temperature 39.1, Arterial Blood pH 7.14*L, Arterial Blood Partial Pressure CO2 67H, Arterial Blood Partial Pressure O2 153H, Arterial Blood HCO3 21L, Arterial Blood Total CO2 23.3, Arterial Blood Oxygen Saturation 98, Arterial Blood Base Excess -5.8L, Aristeo Test ARTLINE, Blood Gas Ventilator Setting YES, Blood Gas Inspired Oxygen 100% 02/12/20 14:07: Glucometer 141H 02/12/20 15:02: Glucometer 139H 02/12/20 16:08: Glucometer 137H 02/12/20 16:10: Vancomycin Level Trough 13.5 02/12/20 17:03: Glucometer 136H Microbiology 02/12/20 Influenza Types A,B Antigen ([facility]) - Final, Complete Assessment/Plan Assessment/Plan Assessment/Plan S/p laparoscopic incarcerated incsional hernia repair Septic shock- Tachycardia, Leukocytosis Acute respiratory failure with hypoxia Possible PE Code Blue Lactic acidosis Hypertension Tachycardia High anion gap metabolic acidosis Acute kidney injury Recently stopped Vraylar due to cost. Abdominal compartment syndrome Patient to go to OR for exploration His pressures began to drop, needed to relieve abdominal pressure therefore opened the left upper quadrant incision at bedside and brown succus came out from incision and sandra drain was placed and pressure relieved through the incision Patient pressures improved to where we could go to OR for exploration Clinical Quality Measures DVT/VTE Risk/Contraindication: Risk Factor Score Per Nursin RFS Level Per Nursing on Admit: 4+=Very High KEAGAN MAYA DO Feb 12, 2020 17:42
--- NOTE | 2020-02-12 17:45 | NUR ---
Dr. Gaytan notified of cont low urine output - less than 100cc this 12 hour shift
[2020-02-12] MEDS: POTASSIUM CL 10MEQ/50ML IVPB 50 ML IV SCH (18:14)
[2020-02-12] MEDS: ACETAMINOPHEN 325 MG TABLET GT SCH ×2 (18:15→23:13)
[2020-02-12 18:17] LABS: BASOPHILS % (AUTO) 1 % (0-10); EOSINOPHILS % (AUTO) 0 % (0-10); HEMATOCRIT 41 % (40-54); HEMOGLOBIN 13.2 g/dL (13.3-17.7); LYMPHOCYTES # (AUTO) 0.5 10^3/uL (1.0-4.0); LYMPHOCYTES % (AUTO) 5 % (12-44); MEAN CORPUSCULAR HEMOGLOBIN 33 pg (25-34); MEAN CORPUSCULAR HGB CONC 33 g/dL (32-36); MEAN CORPUSCULAR VOLUME 102 fL (80-99); MEAN PLATELET VOLUME 10.3 fL (9.0-12.2); MONOCYTES # (AUTO) 0.6 10^3/uL (0.0-1.0); MONOCYTES % (AUTO) 7 % (0-12); NEUTROPHILS # (AUTO) 7.2 10^3/uL (1.8-7.8); NEUTROPHILS % (AUTO) 86 % (42-75); PLATELET COUNT 189 10^3/uL (130-400); WHITE BLOOD COUNT 8.5 10^3/uL (4.3-11.0)
[2020-02-12 18:27] LABS: POTASSIUM 4.5 MMOL/L (3.6-5.0)
[2020-02-12 18:29] LABS: CALCIUM 6.6 MG/DL (8.5-10.1)
[2020-02-12 18:32] LABS: INR 1.7 (0.8-1.4); PROTHROMBIN TIME PATIENT 20.7 SEC (12.2-14.7)
[2020-02-12 18:33] LABS: CREATININE SERUM 3.38 MG/DL (0.60-1.30); PHOSPHORUS 8.8 MG/DL (2.3-4.7)
[2020-02-12 18:35] LABS: MAGNESIUM 2.2 MG/DL (1.6-2.4)
--- NOTE | 2020-02-12 18:50 | NUR ---
[facility] called et updated on status
[2020-02-12 19:47] VITALS: BP 134/100
[2020-02-12 20:10] LABS: ABG BASE EXCESS -9.8 MMOL/L (-2.5-2.5); ABG OXYGEN SATURATION 99 % (94-100); ABG PCO2 49 MMHG (35-45); ABG PO2 237 MMHG (79-93); ABG TCO2 19.2 MMOL/L (21.0-31.0)
[2020-02-12 20:13] LABS: ABG PH 7.17 (7.37-7.43)
[2020-02-12 20:14] LABS: ALLENS TEST YES-POS; INSPIRED O2 85%; PATIENT TEMP 35.3; VENTILATOR YES
[2020-02-12 22:12] VITALS: BP 102/76
[2020-02-12 22:27] LABS: ABG OXYGEN SATURATION 99 % (94-100); ABG PCO2 48 MMHG (35-45); ABG PO2 208 MMHG (79-93); ABG TCO2 19.9 MMOL/L (21.0-31.0)
[2020-02-12 22:32] LABS: ALLENS TEST ART LINE; INSPIRED O2 70%; PATIENT TEMP 34.6; VENTILATOR YES
[2020-02-12 22:38] LABS: ABG PH 7.19 (7.37-7.43)
--- NOTE | 2020-02-12 23:15 | NUR ---
Pt's mother contacted this RN, updated on pt condition.
[2020-02-13 00:24] LABS: BASOPHILS # (AUTO) 0.1 10^3/uL (0.0-0.1); BASOPHILS % (AUTO) 1 % (0-10); EOSINOPHILS % (AUTO) 0 % (0-10); HEMATOCRIT 39 % (40-54); HEMOGLOBIN 12.6 g/dL (13.3-17.7); LYMPHOCYTES # (AUTO) 0.4 10^3/uL (1.0-4.0); LYMPHOCYTES % (AUTO) 3 % (12-44); MEAN CORPUSCULAR HEMOGLOBIN 33 pg (25-34); MEAN CORPUSCULAR HGB CONC 33 g/dL (32-36); MEAN CORPUSCULAR VOLUME 101 fL (80-99); MEAN PLATELET VOLUME 10.6 fL (9.0-12.2); MONOCYTES # (AUTO) 0.6 10^3/uL (0.0-1.0); MONOCYTES % (AUTO) 5 % (0-12); NEUTROPHILS # (AUTO) 10.4 10^3/uL (1.8-7.8); NEUTROPHILS % (AUTO) 89 % (42-75); PLATELET COUNT 155 10^3/uL (130-400); WHITE BLOOD COUNT 11.7 10^3/uL (4.3-11.0)
[2020-02-13] MEDS: AMIODARONE INJECTION 450 MG in D5W IV SOLUTION (EXCEL) 250 ML IV SCH (00:25)
[2020-02-13] MEDS: ARTIFICIAL TEARS OINT (LACRI-LUBE) 3.5 GM TUBE OU SCH ×4 (00:25→18:08)
[2020-02-13 00:27] LABS: ABG BASE EXCESS -8.1 MMOL/L (-2.5-2.5); ABG OXYGEN SATURATION 99 % (94-100); ABG PCO2 51 MMHG (35-45); ABG PO2 194 MMHG (79-93); ABG TCO2 20.7 MMOL/L (21.0-31.0)
[2020-02-13 00:34] LABS: POTASSIUM 4.4 MMOL/L (3.6-5.0)
[2020-02-13 00:35] LABS: CALCIUM 6.5 MG/DL (8.5-10.1)
[2020-02-13 00:39] LABS: CREATININE SERUM 3.56 MG/DL (0.60-1.30); PHOSPHORUS 9.7 MG/DL (2.3-4.7)
[2020-02-13 00:43] LABS: ABG PH 7.19 (7.37-7.43); ALLENS TEST ART LINE; INSPIRED O2 60%; PATIENT TEMP 35.7; VENTILATOR YES
[2020-02-13] MEDS: PHENYLEPHRINE INJECTION 20 MG in NS (IVPB) 250 ML IV SCH ×3 (00:43→03:50)
[2020-02-13] MEDS: POTASSIUM CL 10MEQ/50ML IVPB 50 ML IV SCH ×4 (00:52→18:09)
[2020-02-13] MEDS: EPINEPHrine 1 MG INJECTION 4 MG in NS (IVPB) 246 ML IV SCH ×4 (00:52→21:31)
[2020-02-13 01:06] LABS: INR 1.8 (0.8-1.4); PROTHROMBIN TIME PATIENT 21.4 SEC (12.2-14.7)
--- NOTE | 2020-02-13 01:08 | NUR ---
Time change occurred, charting timed accordingly.
[2020-02-13 01:13] LABS: BAND NEUTROPHILS 35 %; LYMPHOCYTES % (MANUAL) 8 %; METAMYELOCYTES % 13 %; MONOCYTES % (MANUAL) 15 %; MYELOCYTES % 13 %; NEUTROPHILS % (MANUAL) 16 %; TOXIC GRANULATION/VACUOLAZATIO 4+
[2020-02-13 01:55] LABS: ABG BASE EXCESS -6.6 MMOL/L (-2.5-2.5); ABG OXYGEN SATURATION 99 % (94-100); ABG PCO2 57 MMHG (35-45); ABG PO2 157 MMHG (79-93); ABG TCO2 22.4 MMOL/L (21.0-31.0)
[2020-02-13 01:56] LABS: ABG PH 7.18 (7.37-7.43)
[2020-02-13 01:57] LABS: ALLENS TEST ART LINE; INSPIRED O2 50%; PATIENT TEMP 36.4; VENTILATOR YES
[2020-02-13] MEDS: VASOPRESSIN INJECTION 20 UNIT in NS (IVPB) 100 ML IV SCH ×3 (01:58→23:51)
[2020-02-13] MEDS: RT-ALBUTEROL/IPRATROPIUM 3 ML (DUONEB) VIAL INH SCH ×6 (02:46→22:39)
[2020-02-13 02:47] VITALS: BP 127/89
[2020-02-13] MEDS: SODIUM BICARBONATE 8.4% VIAL 150 MEQ in D5W 1000 ML IV SOLUTION 1,000 ML IV SCH (03:09)
--- NOTE | 2020-02-13 03:55 | NUR ---
[facility] contacted this RN, update given.
[2020-02-13 04:08] LABS: ABG BASE EXCESS -5.7 MMOL/L (-2.5-2.5); ABG OXYGEN SATURATION 99 % (94-100); ABG PCO2 53 MMHG (35-45); ABG PO2 126 MMHG (79-93); ABG TCO2 22.7 MMOL/L (21.0-31.0)
--- NOTE | 2020-02-13 04:14 | NUR ---
Pt's mother called at this time, updated on pt condition.
[2020-02-13 04:17] LABS: ABG PH 7.21 (7.37-7.43); ALLENS TEST ART LINE; INSPIRED O2 40%; VENTILATOR YES
[2020-02-13 04:18] LABS: PATIENT TEMP 36.2
--- NOTE | 2020-02-13 04:36 | Pulmonary Progress Note ---
Subjective Time Seen by a Provider: 04:26 Subjective/Events-last exam Pt is unresponsive on ventilator. No sedation infusing since 02/11 Sepsis Event Evaluation Height, Weight, BMI Height: 6'2.00" Weight: 217lbs. 6.0oz. 98.717947gw; 26.48 BMI Method: Focused Exam Lactate Level 02/12/20 20:05: Lactic Acid Level 5.52*H 02/12/20 22:10: Lactic Acid Level 5.40*H 02/13/20 00:05: Lactic Acid Level 5.48*H Exam Exam Vital Signs Date Time Temp Pulse Resp B/P (MAP) Pulse Ox O2 Delivery O2 Flow Rate FiO2 02/13/20 04:06 Mechanical Ventilator 40 02/13/20 03:00 90 26 126/90 98 Mechanical Ventilator 40.00 02/13/20 02:47 87 27 96 50 02/13/20 02:41 36.4 Mechanical Ventilator 40.00 02/13/20 02:16 36.4 02/13/20 02:00 92 26 115/85 98 Mechanical Ventilator 50.00 02/13/20 01:10 36.4 02/13/20 01:10 36.4 02/13/20 01:00 92 02/13/20 01:00 95 26 114/84 Mechanical Ventilator 50.00 02/13/20 00:54 36.1 Mechanical Ventilator 50.00 02/13/20 00:50 36.0 02/13/20 00:00 89 25 115/86 98 Mechanical Ventilator 60.00 02/12/20 23:47 100 Mechanical Ventilator 60 02/12/20 23:38 35.3 02/12/20 23:24 35.1 02/12/20 23:00 83 25 119/84 91 Mechanical Ventilator 60.00 02/12/20 22:52 34.8 Mechanical Ventilator 60.00 02/12/20 22:32 34.7 02/12/20 22:32 34.7 02/12/20 22:12 86 26 94 60 02/12/20 22:06 34.6 02/12/20 22:00 81 25 125/93 93 Mechanical Ventilator 70.00 02/12/20 21:44 34.6 02/12/20 21:14 34.6 02/12/20 21:00 78 25 124/92 100 Mechanical Ventilator 70.00 02/12/20 20:34 34.9 02/12/20 20:24 35.0 Mechanical Ventilator 70.00 02/12/20 20:18 35.0 02/12/20 20:00 100 Mechanical Ventilator 85 02/12/20 20:00 77 25 129/97 98 Mechanical Ventilator 85.00 02/12/20 19:58 35.3 02/12/20 19:55 35.7 02/12/20 19:47 78 26 100 85 02/12/20 19:29 129 83/68 02/12/20 19:05 36.0 Mechanical Ventilator 85.00 02/12/20 19:05 36.0 02/12/20 19:00 82 02/12/20 19:00 77 26 130/99 100 Mechanical Ventilator 100.00 02/12/20 18:52 36.2 02/12/20 18:37 36.5 02/12/20 18:22 36.7 02/12/20 18:20 129 83/68 02/12/20 18:07 36.9 02/12/20 18:00 35.9 87 25 114/93 100 Mechanical Ventilator 100.00 02/12/20 17:54 129 83/68 02/12/20 17:52 37.1 02/12/20 17:37 37.3 02/12/20 17:22 37.5 02/12/20 17:09 129 83/68 02/12/20 17:07 37.7 02/12/20 17:00 36.5 101 26 103/86 100 Mechanical Ventilator 02/12/20 16:52 37.9 02/12/20 16:37 38.0 02/12/20 16:22 38.1 02/12/20 16:17 100 Mechanical Ventilator 85 02/12/20 16:07 38.2 02/12/20 16:02 129 83/68 02/12/20 16:00 37.5 115 25 85/69 100 Mechanical Ventilator 02/12/20 15:52 38.3 02/12/20 15:37 38.4 02/12/20 15:22 38.6 02/12/20 15:07 38.8 02/12/20 15:00 38.4 129 25 129/104 100 Mechanical Ventilator 02/12/20 14:52 39.0 02/12/20 14:37 39.0 02/12/20 14:22 39.1 02/12/20 14:21 134 26 100 85 02/12/20 14:14 147 119/92 02/12/20 14:07 39.1 02/12/20 14:00 38.9 134 25 128/98 100 Mechanical Ventilator 02/12/20 13:52 39.1 02/12/20 13:37 39.2 02/12/20 13:10 38.9 26 98 Mechanical Ventilator 02/12/20 13:10 Mechanical Ventilator 02/12/20 13:00 26 100 Mechanical Ventilator 02/12/20 13:00 141 02/12/20 13:00 39.3 137 25 111/91 100 Mechanical Ventilator 02/12/20 12:55 Mechanical Ventilator 02/12/20 12:50 39.3 26 100 Mechanical Ventilator 02/12/20 12:40 Mechanical Ventilator 02/12/20 12:40 26 100 Mechanical Ventilator 02/12/20 12:30 93 Mechanical Ventilator 100 02/12/20 12:30 26 94 Mechanical Ventilator 02/12/20 12:25 Mechanical Ventilator 02/12/20 12:20 26 94 Mechanical Ventilator 02/12/20 12:10 39.1 26 02/12/20 12:10 Mechanical Ventilator 02/12/20 12:00 140 26 94/61 100 Mechanical Ventilator 02/12/20 11:00 147 36 119/92 98 Mechanical Ventilator 02/12/20 10:19 36.8 152 36 126/97 94 Mechanical Ventilator 6.00 02/12/20 10:19 152 126/97 02/12/20 10:00 152 36 126/97 94 Mechanical Ventilator 02/12/20 09:00 154 36 105/82 92 Mechanical Ventilator 02/12/20 08:49 91 Mechanical Ventilator 100 02/12/20 08:37 147 82/62 02/12/20 08:18 36.8 02/12/20 08:00 36.7 02/12/20 08:00 152 35 99/76 Mechanical Ventilator 02/12/20 07:40 147 82/62 02/12/20 07:19 147 36 86 100 02/12/20 07:11 37.6 138 31 63/49 88 6.00 02/12/20 07:00 137 27 80/62 88 Mechanical Ventilator 02/12/20 07:00 147 02/12/20 06:56 63/49 02/12/20 06:12 75/56 02/12/20 06:11 83/59 02/12/20 06:03 73/51 02/12/20 06:00 138 31 93/72 88 High Flow N/C 6.00 02/12/20 05:56 74/49 02/12/20 05:50 78/54 02/12/20 05:48 76/53 02/12/20 05:39 75/51 02/12/20 05:27 83/65 02/12/20 05:16 62/51 02/12/20 05:12 69/53 02/12/20 05:00 131 23 99/80 86 High Flow N/C 6.00 02/12/20 04:52 86/70 02/12/20 04:51 87/71 02/12/20 04:39 100/80 I & O 02/13/20 07:00 Intake Total 09149.5 ml Output Total 785 ml Balance 87612.5 ml Height & Weight Height: 6'2.00" Weight: 217lbs. 6.0oz. 98.172124bp; 26.48 BMI Method: General Appearance: Obese, Other (intubated) HEENT: Pharynx Normal, Other (pupils are reactive to light and more equal today. ) Neck: Normal Inspection, Supple Respiratory: Decreased Breath Sounds, Other (intubated) Cardiovascular: Tachycardia (regular rhythm) Capillary Refill: Greater Than 3 Seconds Gastrointestinal: distended (significant distention tight abdomen.), tenderness (incisions c/d/i ) Extremity: Normal Inspection, Non Tender, No Pedal Edema Neurologic/Psychiatric: Other (pt is unresponsive on vent. No sedation is infusing. ) Skin: Mottled Lymphatic: No Adenopathy Results Lab Laboratory Tests 02/11/20 15:42 02/11/20 21:25 02/12/20 00:43 02/12/20 01:15 02/12/20 02:44 02/12/20 08:32 02/12/20 12:16 02/12/20 18:00 02/13/20 00:05 Assessment/Plan Assessment/Plan Acute respiratory failure s/p Cardiac arrest. -EICU managed patient through the night -Pt is on vent. -Pt is not currently on any sedation and he has had no proposal movements. -Pupils more equal today and sluggish to light S/p Lap incarcerated incisional hernia repair POD 3, s/p ex lap with repair POD 1 -Dr. Waddell and Dr. Monsalve following S/p cardiac arrest x 4 with anoxic encephalopathy -Continue therapeutic hypothermia -Unresponsive on vent. No sedation is infusing -Check CMP, and ammonia level septic Shock -Currently on Levophed, Vasopressin, and neosynphrin -Pt is also on ammiodarone gtt -Cardiology following -S.p echo - was not suggestive of PE -Vanco, Zosyn, and Diflucan -D/C Vancomycin- MRSA swab is negative. -Rodriguez cultures pending Acute renal failure with metabolic acidosis and hyperphos -Continue bicarb gtt s/p bicarb push -Repeat labs at 1300 -May need to transfer for HD. Metabolic lactic acidosis -IVF -Give another liter bolus of NS Marijuanna dependance -UDS is positive for Marijuanna Hx of Bipolar -Hold psych meds for now Update 0744: Along with RN we called and discussed pt's current condition and all option of care with . I explained to pt is in [facility]. does not want to transfer for HD at this time. She understands pt is producing very little urine and if his kidneys continue to fail he will not survive. She does want to leave him as a full CODE at this time. I also discussed with Dr. Benitez pt's current status. I am going to repeat labs at 1100 Critical Care: Critically Ill Patient Time spent with patient (mins): 60 EZEQUIEL MAHARAJ DO Feb 13, 2020 04:36
[2020-02-13] MEDS ORDERED: LACTATED RINGERS 1,000 ML IV SCH (04:45)
[2020-02-13] MEDS: HYDROCORTISONE 100 MG/2 ML (Solu-CORTEF) VIAL IV SCH ×3 (05:01→21:14)
[2020-02-13] MEDS: busPIRone 15 MG (BUSPAR) TABLET GT SCH (05:02)
[2020-02-13] MEDS: ALBUMIN 25% 25 GM/100 ML 100 ML IV SCH (05:02)
[2020-02-13] MEDS: ACETAMINOPHEN 325 MG TABLET GT SCH ×3 (05:02→18:09)
[2020-02-13] MEDS: PIPERACILLIN/TAZO 4.5 GM/NS 100 ML IV SCH ×6 (06:10→22:05)
[2020-02-13 06:12] LABS: BASOPHILS # (AUTO) 0.1 10^3/uL (0.0-0.1); BASOPHILS % (AUTO) 1 % (0-10); EOSINOPHILS % (AUTO) 0 % (0-10); HEMATOCRIT 35 % (40-54); HEMOGLOBIN 11.4 g/dL (13.3-17.7); LYMPHOCYTES # (AUTO) 0.5 10^3/uL (1.0-4.0); LYMPHOCYTES % (AUTO) 4 % (12-44); MEAN CORPUSCULAR HEMOGLOBIN 33 pg (25-34); MEAN CORPUSCULAR HGB CONC 33 g/dL (32-36); MEAN CORPUSCULAR VOLUME 100 fL (80-99); MONOCYTES # (AUTO) 0.6 10^3/uL (0.0-1.0); MONOCYTES % (AUTO) 6 % (0-12); NEUTROPHILS # (AUTO) 9.4 10^3/uL (1.8-7.8); NEUTROPHILS % (AUTO) 88 % (42-75); PLATELET COUNT 127 10^3/uL (130-400); WHITE BLOOD COUNT 10.7 10^3/uL (4.3-11.0)
[2020-02-13 06:12] LABS: ABG BASE EXCESS -5.9 MMOL/L (-2.5-2.5); ABG OXYGEN SATURATION 100 % (94-100); ABG PCO2 44 MMHG (35-45); ABG PO2 151 MMHG (79-93); ABG TCO2 21.5 MMOL/L (21.0-31.0)
[2020-02-13 06:16] LABS: ABG PH 7.27 (7.37-7.43)
[2020-02-13 06:18] LABS: ALLENS TEST ART LINE
[2020-02-13 06:19] LABS: INSPIRED O2 40%; PATIENT TEMP 35.8; VENTILATOR YES
[2020-02-13 06:29] LABS: POTASSIUM 4.5 MMOL/L (3.6-5.0)
[2020-02-13 06:31] LABS: CALCIUM 6.2 MG/DL (8.5-10.1)
[2020-02-13 06:32] LABS: INR 1.8 (0.8-1.4); PROTHROMBIN TIME PATIENT 21.2 SEC (12.2-14.7)
[2020-02-13 06:35] LABS: CREATININE SERUM 3.65 MG/DL (0.60-1.30); PHOSPHORUS 9.5 MG/DL (2.3-4.7)
[2020-02-13 06:37] LABS: MAGNESIUM 1.9 MG/DL (1.6-2.4)
[2020-02-13 06:51] LABS: ALBUMIN 2.5 GM/DL (3.2-4.5)
[2020-02-13 06:54] LABS: TOTAL PROTEIN 4.1 GM/DL (6.4-8.2)
[2020-02-13 06:55] LABS: BILIRUBIN,TOTAL 1.3 MG/DL (0.1-1.0)
[2020-02-13 07:19] VITALS: BP 119/88
--- NOTE | 2020-02-13 07:30 | NUR ---
Dr. Gaytan called et had extensive phone call regarding pt condition, prognosis, and options for care at this time. states she will speak with pt's mother but at this time her wishes are to continue with care as is at this facility.
--- NOTE | 2020-02-13 07:31 | Anesthesia-General Post-Op ---
General Patient Condition Mental Status/LOC: Unreactive Cardiovascular: Satisfactory Respiratory: Unsatisfactory Post Op Complications Complications Patient status Post code blue in the operating room x 2. Follow Up Care/Instructions Patient Instructions Patient being followed by multiple specialties. Please let us know if anything is need from anesthesia. Anesthesia/Patient Condition Patient Condition Patient off all vasoactive medications except Vassopressin. Intubated. TYRA FERNANDES CRNA Feb 13, 2020 07:31
[2020-02-13] MEDS: LORazepam INJECTION FOR DRIP 20 MG in D5W 100 ML IVPB 90 ML IV SCH (07:50)
[2020-02-13] MEDS: PANTOPRAZOLE 40 MG (PROTONIX) VIAL IV SCH ×2 (08:07→20:14)
[2020-02-13] MEDS: FLUCONAZOLE 200 MG/100 ML 50 ML, EMPTY IV BAG (PVC) 1 EA IV SCH ×2 (08:09)
--- NOTE | 2020-02-13 08:10 | NUR ---
Dr. Ardon at bedside. Order to DC amio et place vasopressin on hold.
--- NOTE | 2020-02-13 08:18 | Diagnostic Imaging Report ---
INDICATION: Dyspnea. COMPARISON: 02/12/2020. FINDINGS: ET tube and NG tube remain in good position. The left lung is well-aerated and clear. Atelectasis and/or infiltrate in the right lung base with chronic elevation right hemidiaphragm again noted. Right upper lung remains clear. No evidence of pulmonary edema. The heart is not enlarged. IMPRESSION: Stable portable chest with tubes and lines in good position. Persistent right basilar atelectasis and/or infiltrate. Dictated by: Dictated on workstation # [id number]
--- NOTE | 2020-02-13 08:50 | Cardiology Progress Note ---
Subjective Date Seen by Provider: Feb 13, 2020 Time Seen by Provider: 08:47 Subjective/Events-last exam Patient is not responsive, ventilator dependent Review of Systems General: Other (unable to provide review of systems) Focused Exam Lactate Level 02/12/20 22:10: Lactic Acid Level 5.40*H 02/13/20 00:05: Lactic Acid Level 5.48*H 02/13/20 05:50: Lactic Acid Level 5.33*H Lactic Acid Level Laboratory Tests Test 02/13/20 05:50 Lactic Acid Level 5.33 MMOL/L (0.50-2.00) *H Objective-Cardiology Exam Last Set of Vital Signs Vital Signs 02/13/20 02/13/20 02/13/20 08:00 08:27 08:30 Temp 35.5 Pulse 86 Resp 26 B/P (MAP) 104/80 Pulse Ox 91 O2 Delivery Mechanical Ventilator O2 Flow Rate 40.00 FiO2 40 Capillary Refill : Greater Than 3 Seconds I&O Intake and Output 02/13/20 00:00 Intake Total 29754.5 ml Output Total 865 ml Balance 9274.5 ml Intake IV Total 00305.5 ml Other 100 ml Output Urine Total 295 ml Gastric Drainage Total 170 ml Other 400 ml General: Other (not receiving sedation, not responsive) HEENT: Atraumatic Neck: Supple Lungs: Clear to Auscultation, Normal Air Movement Heart: Regular Rate, Normal S1, Normal S2 Abdomen: Other (distended abdomen, absent bowel sounds) Extremities: No Clubbing, No Cyanosis Skin: No Rashes, Other (abdominal wound) Neuro: Other (not responsive, no movements) Psych/Mental Status: Other (not responsive) Results Lab Laboratory Tests 02/12/20 12:16 02/12/20 18:00 02/13/20 00:05 02/13/20 05:50 A/P-Cardiology Admission Diagnosis Acute respiratory failure Hypotensive shock Acute renal failure Metabolic acidosis Assessment/Plan Acute respiratory failure ventilator dependent, managed by Dr. Gaytan Acute renal failure, low urine output, receiving boluses of fluid. Continue to monitor closely Elevated liver enzymes, shock liver, continue to monitor Hypotensive shock, probably septic shock. Blood pressure is better at this time, off most of his pressors, will try to get him off vasopressin. Status post ventricular tachycardia, ventricular fibrillation, required shock and started on amiodarone drip. I will stop amiodarone drip at this time and m onitor Status post recent incisional hernia repair done on February 10, 2020. Metabolic acidosis, lactic acidosis and electrolytes in balance, working on correcting electrolyte imbalance. History of bipolar disorder. Clinical Quality Measures DVT/VTE Risk/Contraindication: Risk Factor Score Per Nursin RFS Level Per Nursing on Admit: 4+=Very High CHAPO RODRIGUEZ MD Feb 13, 2020 08:50
--- NOTE | 2020-02-13 09:16 | NUR ---
Dr. Benitez at bedside. Pt does squeeze his hand on command et wiggle his left 2nd toe when told to "wiggle your toes".
[2020-02-13] MEDS: LACTATED RINGERS 1,000 ML IV SCH (09:38)
--- NOTE | 2020-02-13 09:39 | NUR ---
Dr. Ardon, Dr. Benitez, et Dr. Monsalve at bedside. Dr. Ardon ordered 1L LR bolus et Dr. Benitez ordered fluid change. Dr. Monsalve ordered drsg to LUQ be changed WTD drsg changes BID et prn.
[2020-02-13] MEDS: SODIUM BICARBONATE 8.4% VIAL 100 MEQ in D5 1/2 NS 1000 ML IV SOLUTION 1,000 ML IV SCH ×2 (10:32→18:08)
[2020-02-13 10:38] VITALS: BP 90/53
[2020-02-13] MEDS: fentaNYL 1,250 MCG/NS 250 ML DRIP IV SCH (10:43)
--- NOTE | 2020-02-13 10:45 | NUR ---
Spoke with Dr. Gaytan - notified him of improved neuro status, minial urinary output, et soft BPs (80s/50s) despite recent bolus. Order to put pt back on vaso et start fent gtt low at 25mcg/hr
--- NOTE | 2020-02-13 11:08 | NUR ---
[facility] called for an update - stated they are going to stop following him since he has shown neuro improvement but to please notify him is he declines
[2020-02-13] MEDS: MAGNESIUM SULFATE DRIP 500 ML IV SCH (11:18)
--- NOTE | 2020-02-13 11:21 | Progress Note ---
Subjective Date Seen by a Provider: Feb 13, 2020 Time Seen by a Provider: 10:00 Subjective/Events-last exam doing slightly better. weening off pressors. does move digits to loud voice. FiO2 40%. continues to be metabolically acidotic likely due to hypoperfusion and vasoconstriction. Focused Exam Lactate Level 02/12/20 22:10: Lactic Acid Level 5.40*H 02/13/20 00:05: Lactic Acid Level 5.48*H 02/13/20 05:50: Lactic Acid Level 5.33*H Objective Exam Vital Signs Date Time Temp Pulse Resp B/P (MAP) Pulse Ox O2 Delivery O2 Flow Rate FiO2 02/13/20 10:45 35.8 02/13/20 10:38 101 26 98 40 02/13/20 10:30 35.8 02/13/20 10:15 35.7 02/13/20 10:05 35.7 02/13/20 10:00 102 25 104/58 99 Mechanical Ventilator 40.00 02/13/20 10:00 35.7 02/13/20 09:45 35.6 02/13/20 09:30 35.6 02/13/20 09:15 35.5 02/13/20 09:00 101 27 117/66 94 Mechanical Ventilator 40.00 02/13/20 09:00 35.5 02/13/20 08:45 35.5 02/13/20 08:30 35.5 02/13/20 08:27 Mechanical Ventilator 40 02/13/20 08:15 35.5 02/13/20 08:00 35.6 02/13/20 08:00 35.5 02/13/20 08:00 86 26 104/80 91 Mechanical Ventilator 40.00 02/13/20 07:45 35.6 02/13/20 07:30 35.6 02/13/20 07:19 85 26 96 40 02/13/20 07:15 35.6 02/13/20 07:00 82 02/13/20 07:00 81 26 112/81 92 Mechanical Ventilator 40.00 02/13/20 07:00 35.6 02/13/20 06:36 35.5 02/13/20 06:34 35.5 02/13/20 06:00 82 26 119/88 90 Mechanical Ventilator 40.00 02/13/20 05:50 35.8 02/13/20 05:50 35.8 02/13/20 05:24 36.0 02/13/20 05:24 36.0 02/13/20 05:00 87 25 112/86 90 Mechanical Ventilator 40.00 02/13/20 04:45 36.0 02/13/20 04:06 Mechanical Ventilator 40 02/13/20 04:01 36.1 02/13/20 04:01 36.1 02/13/20 04:00 91 25 124/91 98 Mechanical Ventilator 40.00 02/13/20 03:15 36.2 02/13/20 03:00 90 26 126/90 98 Mechanical Ventilator 40.00 02/13/20 02:47 87 27 96 50 02/13/20 02:41 36.4 Mechanical Ventilator 40.00 02/13/20 02:41 36.4 02/13/20 02:16 36.4 02/13/20 02:00 92 26 115/85 98 Mechanical Ventilator 50.00 02/13/20 01:10 36.4 02/13/20 01:10 36.4 02/13/20 01:00 92 02/13/20 01:00 95 26 114/84 Mechanical Ventilator 50.00 02/13/20 00:54 36.1 Mechanical Ventilator 50.00 02/13/20 00:50 36.0 02/13/20 00:00 89 25 115/86 98 Mechanical Ventilator 60.00 02/12/20 23:47 100 Mechanical Ventilator 60 02/12/20 23:38 35.3 02/12/20 23:24 35.1 02/12/20 23:20 35.2 02/12/20 23:00 83 25 119/84 91 Mechanical Ventilator 60.00 02/12/20 22:52 34.8 Mechanical Ventilator 60.00 02/12/20 22:32 34.7 02/12/20 22:32 34.7 02/12/20 22:12 86 26 94 60 02/12/20 22:06 34.6 02/12/20 22:00 81 25 125/93 93 Mechanical Ventilator 70.00 02/12/20 21:44 34.6 02/12/20 21:30 34.8 02/12/20 21:14 34.6 02/12/20 21:00 78 25 124/92 100 Mechanical Ventilator 70.00 02/12/20 20:34 34.9 02/12/20 20:24 35.0 Mechanical Ventilator 70.00 02/12/20 20:18 35.0 02/12/20 20:00 100 Mechanical Ventilator 85 02/12/20 20:00 77 25 129/97 98 Mechanical Ventilator 85.00 02/12/20 19:58 35.3 02/12/20 19:55 35.7 02/12/20 19:47 78 26 100 85 02/12/20 19:29 129 83/68 02/12/20 19:05 36.0 Mechanical Ventilator 85.00 02/12/20 19:05 36.0 02/12/20 19:00 82 02/12/20 19:00 77 26 130/99 100 Mechanical Ventilator 100.00 02/12/20 18:52 36.2 02/12/20 18:37 36.5 02/12/20 18:22 36.7 02/12/20 18:20 129 83/68 02/12/20 18:07 36.9 02/12/20 18:00 35.9 87 25 114/93 100 Mechanical Ventilator 100.00 02/12/20 17:54 129 83/68 02/12/20 17:52 37.1 02/12/20 17:37 37.3 02/12/20 17:22 37.5 02/12/20 17:09 129 83/68 02/12/20 17:07 37.7 02/12/20 17:00 36.5 101 26 103/86 100 Mechanical Ventilator 02/12/20 16:52 37.9 02/12/20 16:37 38.0 02/12/20 16:22 38.1 02/12/20 16:17 100 Mechanical Ventilator 85 02/12/20 16:07 38.2 02/12/20 16:02 129 83/68 02/12/20 16:00 37.5 115 25 85/69 100 Mechanical Ventilator 02/12/20 15:52 38.3 02/12/20 15:37 38.4 02/12/20 15:22 38.6 02/12/20 15:07 38.8 02/12/20 15:00 38.4 129 25 129/104 100 Mechanical Ventilator 02/12/20 14:52 39.0 02/12/20 14:37 39.0 02/12/20 14:22 39.1 02/12/20 14:21 134 26 100 85 02/12/20 14:14 147 119/92 02/12/20 14:07 39.1 02/12/20 14:00 38.9 134 25 128/98 100 Mechanical Ventilator 02/12/20 13:52 39.1 02/12/20 13:37 39.2 02/12/20 13:10 38.9 26 98 Mechanical Ventilator 02/12/20 13:10 Mechanical Ventilator 02/12/20 13:00 26 100 Mechanical Ventilator 02/12/20 13:00 141 02/12/20 13:00 39.3 137 25 111/91 100 Mechanical Ventilator 02/12/20 12:55 Mechanical Ventilator 02/12/20 12:50 39.3 26 100 Mechanical Ventilator 02/12/20 12:40 Mechanical Ventilator 02/12/20 12:40 26 100 Mechanical Ventilator 02/12/20 12:30 93 Mechanical Ventilator 100 02/12/20 12:30 26 94 Mechanical Ventilator 02/12/20 12:25 Mechanical Ventilator 02/12/20 12:20 26 94 Mechanical Ventilator 02/12/20 12:10 39.1 26 02/12/20 12:10 Mechanical Ventilator 02/12/20 12:00 140 26 94/61 100 Mechanical Ventilator I & O 02/13/20 07:00 Intake Total 89504.5 ml Output Total 1345 ml Balance 56885.5 ml Capillary Refill : Greater Than 3 Seconds General Appearance: No Apparent Distress HEENT: PERRL/EOMI Neck: Full Range of Motion Respiratory: Decreased Breath Sounds, Rhonci Cardiovascular: Regular Rate, Rhythm Gastrointestinal: soft, other (open abd with wound vac in place) Extremity: Normal Capillary Refill Skin: Normal Color Lymphatic: No Adenopathy Results Lab Laboratory Tests 02/12/20 12:16: White Blood Count 8.9, Red Blood Count 3.82L, Hemoglobin 12.8L, Hematocrit 39L, Mean Corpuscular Volume 102H, Mean Corpuscular Hemoglobin 34, Mean Corpuscular Hemoglobin Concent 33, Red Cell Distribution Width 13.5, Platelet Count 212, Mean Platelet Volume 10.1, Immature Granulocyte % (Auto) 2, Neutrophils (%) (Auto) 81H, Lymphocytes (%) (Auto) 8L, Monocytes (%) (Auto) 9, Eosinophils (%) (Auto) 0, Basophils (%) (Auto) 0, Neutrophils # (Auto) 7.3, Lymphocytes # (Auto) 0.7L, Monocytes # (Auto) 0.8, Eosinophils # (Auto) 0.0, Basophils # (Auto) 0.0, Immature Granulocyte # (Auto) 0.2H, Prothrombin Time 20.7H, INR Comment 1.7H, Activated Partial Thromboplast Time 56H, Fibrinogen 552H, D-Dimer > 20.00*H, Sodium Level 142, Potassium Level 4.0, Chloride Level 107, Carbon Dioxide Level 20L, Anion Gap 15H, Blood Urea Nitrogen 35H, Creatinine 2.79H, Estimat Glomerular Filtration Rate 24, BUN/Creatinine Ratio 13, Glucose Level 127H, Lactic Acid Level 6.17*H, Calcium Level 6.0#*L, Corrected Calcium 7.8L, Phosphorus Level 6.6H, Magnesium Level 1.7, Total Bilirubin 0.7, Direct Bilirubin 0.5H, Indirect Bilirubin 0.2, Aspartate Amino Transf (AST/SGOT) 356H, Alanine Aminotransferase (ALT/SGPT) 251H, Alkaline Phosphatase 27L, Total Cre atine Kinase 6753H, Troponin I 0.521*H, Total Protein 3.2L, Albumin 1.8L, Triglycerides Level 92, Amylase Level 271H, Lipase 21 02/12/20 12:39: Blood Gas Puncture Site LT ARTLINE, Blood Gas Patient Temperature 39.1, Arterial Blood pH 7.14*L, Arterial Blood Partial Pressure CO2 67H, Arterial Blood Partial Pressure O2 153H, Arterial Blood HCO3 21L, Arterial Blood Total CO2 23.3, Arterial Blood Oxygen Saturation 98, Arterial Blood Base Excess -5.8L, Aristeo Test ARTLINE, Blood Gas Ventilator Setting YES, Blood Gas Inspired Oxygen 100% 02/12/20 14:07: Glucometer 141H 02/12/20 15:02: Glucometer 139H 02/12/20 16:08: Glucometer 137H 02/12/20 16:10: Vancomycin Level Trough 13.5 02/12/20 17:03: Glucometer 136H 02/12/20 18:00: White Blood Count 8.5, Red Blood Count 3.98L, Hemoglobin 13.2L, Hematocrit 41, Mean Corpuscular Volume 102H, Mean Corpuscular Hemoglobin 33, Mean Corpuscular Hemoglobin Concent 33, Red Cell Distribution Width 13.6, Platelet Count 189, Mean Platelet Volume 10.3, Immature Granulocyte % (Auto) 1, Neutrophils (%) (Auto) 86H, Lymphocytes (%) (Auto) 5L, Monocytes (%) (Auto) 7, Eosinophils (%) (Auto) 0, Basophils (%) (Auto) 1, Neutrophils # (Auto) 7.2, Lymphocytes # (Auto) 0.5L, Monocytes # (Auto) 0.6, Eosinophils # (Auto) 0.0, Basophils # (Auto) 0.0, Immature Granulocyte # (Auto) 0.1, Prothrombin Time 20.7H, INR Comment 1.7H, Activated Partial Thromboplast Time 45H, Sodium Level 136, Potassium Level 4.5, Chloride Level 103, Carbon Dioxide Level 16L, Anion Gap 17H, Blood Urea Nitrogen 39H, Creatinine 3.38#H, Estimat Glomerular Filtration Rate 19, BUN/Creatinine Ratio 12, Glucose Level 146H, Lactic Acid Level 4.59*H, Calcium Level 6.6L, Phosphorus Level 8.8H, Magnesium Level 2.2 02/12/20 18:06: Glucometer 141H 02/12/20 18:49: Glucometer 144H 02/12/20 20:03: Glucometer 152H 02/12/20 20:05: Blood Gas Puncture Site RIGHT RADIAL, Blood Gas Patient Temperature 35.3, Arterial Blood pH 7.17*L, Arterial Blood Partial Pressure CO2 49H, Arterial Blood Partial Pressure O2 237H, Arterial Blood HCO3 18L, Arterial Blood Total CO2 19.2L, Arterial Blood Oxygen Saturation 99, Arterial Blood Base Excess -9.8L , Aristeo Test YES-POS, Blood Gas Ventilator Setting YES, Blood Gas Inspired Oxygen 85%, Lactic Acid Level 5.52*H 02/12/20 21:11: Glucometer 165H 02/12/20 22:10: Blood Gas Puncture Site LEFT RADIAL, Blood Gas Patient Temperature 34.6, Arterial Blood pH 7.19*L, Arterial Blood Partial Pressure CO2 48H, Arterial Blood Partial Pressure O2 208H, Arterial Blood HCO3 18L, Arterial Blood Total CO2 19.9L, Arterial Blood Oxygen Saturation 99, Arterial Blood Base Excess -9.0L , Aristeo Test ART LINE, Blood Gas Ventilator Setting YES, Blood Gas Inspired Oxygen 70%, Lactic Acid Level 5.40*H 02/12/20 22:14: Glucometer 169H 02/13/20 00:05: Blood Gas Puncture Site LEFT RADIAL, Blood Gas Patient Temperature 35.7, Arterial Blood pH 7.19*L, Arterial Blood Partial Pressure CO2 51H, Arterial Blood Partial Pressure O2 194H, Arterial Blood HCO3 19L, Arterial Blood Total CO2 20.7L, Arterial Blood Oxygen Saturation 99, Arterial Blood Base Excess -8.1L , Aristeo Test ART LINE, Blood Gas Ventilator Setting YES, Blood Gas Inspired Oxygen 60%, Lactic Acid Level 5.48*H, White Blood Count 11.7H, Red Blood Count 3.81L, Hemoglobin 12.6L, Hematocrit 39L, Mean Corpuscular Volume 101H, Mean Corpuscular Hemoglobin 33, Mean Corpuscular Hemoglobin Concent 33, Red Cell Distribution Width 13.5, Platelet Count 155, Mean Platelet Volume 10.6, Immature Granulocyte % (Auto) 2, Neutrophils (%) (Auto) 89H, Lymphocytes (%) (Auto) 3L, Monocytes (%) (Auto) 5, Eosinophils (%) (Auto) 0, Basophils (%) (Auto) 1, Neutrophils # (Auto) 10.4H, Lymphocytes # (Auto) 0.4L, Monocytes # (Auto) 0.6, Eosinophils # (Auto) 0.0, Basophils # (Auto) 0.1, Immature Granulocyte # (Auto) 0.2H, Neutrophils % (Manual) 16, Lymphocytes % (Manual) 8, Monocytes % (Manual) 15, Metamyelocytes % 13, Myelocytes % 13, Band Neutrophils 35, Toxic Granulation 4+, Prothrombin Time 21.4H, INR Comment 1.8H, Activated Partial Thromboplast Time 46H, Sodium Level 137, Potassium Level 4.4, Chloride Level 101, Carbon Dioxide Level 17L, Anion Gap 19H, Blood Urea Nitrogen 41H, Creatinine 3.56H, Estimat Glomerular Filtration Rate 18, BUN/Creatinine Ratio 12, Glucose Level 168H, Calcium Level 6.5L, Phosphorus Level 9.7H, Magnesium Level 2.0 02/13/20 00:16: Glucometer 171H 02/13/20 01:45: Blood Gas Puncture Site LEFT RADIAL, Blood Gas Patient Temperature 36.4, Arterial Blood pH 7.18*L, Arterial Blood Partial Pressure CO2 57H, Arterial Blood Partial Pressure O2 157H, Arterial Blood HCO3 21L, Arterial Blood Total CO2 22.4, Arterial Blood Oxygen Saturation 99, Arterial Blood Base Excess -6.6L, Aristeo Test ART LINE, Blood Gas Ventilator Setting YES, Blood Gas Inspired Oxygen 50% 02/13/20 01:46: Glucometer 164H 02/13/20 03:58: Glucometer 154H 02/13/20 04:00: Blood Gas Puncture Site LEFT RADIAL, Blood Gas Patient Temperature 36.2, Arterial Blood pH 7.21*L, Arterial Blood Partial Pressure CO2 53H, Arterial Blood Partial Pressure O2 126H, Arterial Blood HCO3 21L, Arterial Blood Total CO2 22.7, Arterial Blood Oxygen Saturation 99, Arterial Blood Base Excess -5.7L, Aristeo Test ART LINE, Blood Gas Ventilator Setting YES, Blood Gas Inspired Oxygen 40% 02/13/20 05:50: White Blood Count 10.7, Red Blood Count 3.46L, Hemoglobin 11.4L, Hematocrit 35L, Mean Corpuscular Volume 100H, Mean Corpuscular Hemoglobin 33, Mean Corpuscular Hemoglobin Concent 33, Red Cell Distribution Width 13.5, Platelet Count 127L, Mean Platelet Volume 11.0, Immature Granulocyte % (Auto) 2, Neutrophils (%) (Auto) 88H, Lymphocytes (%) (Auto) 4L, Monocytes (%) (Auto) 6, Eosinophils (%) (Auto) 0, Basophils (%) (Auto) 1, Neutrophils # (Auto) 9.4H, Lymphocytes # (Auto) 0.5L, Monocytes # (Auto) 0.6, Eosinophils # (Auto) 0.0, Basophils # (Auto) 0.1, Immature Granulocyte # (Auto) 0.2H, Prothrombin Time 21.2H, INR Comment 1.8H, Activated Partial Thromboplast Time 46H, Sodium Level 136, Potassium Level 4.5, Chloride Level 99, Carbon Dioxide Level 18L, Anion Gap 19H, Blood Urea Nitrogen 42H, Creatinine 3.65H, Estimat Glomerular Filtration Rate 18, BUN/Creatinine Ratio 12, Glucose Level 164H, Lactic Acid Level 5.33*H, Calcium Level 6.2L, Corrected Calcium 7.4L, Phosphorus Level 9.5H, Magnesium Level 1.9, Total Bilirubin 1.3H, Aspartate Amino Transf (AST/SGOT) 1063#H, Alanine Aminotransferase (ALT/SGPT) 612#H, Alkaline Phosphatase 41, Ammonia 36H, Total Protein 4.1L, Albumin 2.5L 02/13/20 05:58: Glucometer 165H 02/13/20 06:00: Blood Gas Puncture Site LEFT ARTLINE, Blood Gas Patient Temperature 35.8, Arterial Blood pH 7.27*L, Arterial Blood Partial Pressure CO2 44, Arterial Blood Partial Pressure O2 151H, Arterial Blood HCO3 20L, Arterial Blood Total CO2 21.5, Arterial Blood Oxygen Saturation 100, Arterial Blood Base Excess -5.9L, Aristeo Test ART LINE, Blood Gas Ventilator Setting YES, Blood Gas Inspired Oxygen 40% 02/13/20 07:20: Glucometer 176H 02/13/20 08:05: Glucometer 183H 02/13/20 09:15: Glucometer 171H 02/13/20 10:04: Glucometer 151H Microbiology 02/12/20 Gram Stain, Resulted Pending 02/12/20 Anaerobic Culture, Resulted Pending 02/12/20 Surgical Culture - Preliminary, Resulted Gram Negative Hu 02/12/20 Gram Stain, Resulted Pending 02/12/20 Sputum Culture - Preliminary, Resulted No growth 02/12/20 Urine Culture - Preliminary, Resulted NO GROWTH 02/11/20 Blood Culture - Preliminary, Resulted Gram Negative Hu Assessment/Plan Assessment/Plan Assess & Plan/Chief Complaint s/p exploratory laparotomy, SBR, and mesh explantation. cont IV abx and antifungal. cont vent ween. cont bicarb gtt. systemic hypothermia per critical care. likely TPN POD#5. Clinical Quality Measures DVT/VTE Risk/Contraindication: Risk Factor Score Per Nursin RFS Level Per Nursing on Admit: 4+=Very High RADHA MORALES MD Feb 13, 2020 11:21
[2020-02-13 11:59] LABS: BASOPHILS # (AUTO) 0.1 10^3/uL (0.0-0.1); BASOPHILS % (AUTO) 1 % (0-10); EOSINOPHILS % (AUTO) 0 % (0-10); HEMATOCRIT 33 % (40-54); HEMOGLOBIN 11.1 g/dL (13.3-17.7); LYMPHOCYTES # (AUTO) 0.4 10^3/uL (1.0-4.0); LYMPHOCYTES % (AUTO) 5 % (12-44); MEAN CORPUSCULAR HEMOGLOBIN 33 pg (25-34); MEAN CORPUSCULAR HGB CONC 34 g/dL (32-36); MEAN CORPUSCULAR VOLUME 99 fL (80-99); MEAN PLATELET VOLUME 10.6 fL (9.0-12.2); MONOCYTES # (AUTO) 0.4 10^3/uL (0.0-1.0); MONOCYTES % (AUTO) 4 % (0-12); NEUTROPHILS % (AUTO) 86 % (42-75); PLATELET COUNT 94 10^3/uL (130-400); WHITE BLOOD COUNT 8.2 10^3/uL (4.3-11.0)
[2020-02-13 12:08] LABS: INR 1.8 (0.8-1.4); PROTHROMBIN TIME PATIENT 21.3 SEC (12.2-14.7)
[2020-02-13 12:17] LABS: POTASSIUM 4.2 MMOL/L (3.6-5.0)
[2020-02-13 12:18] LABS: CALCIUM 6.1 MG/DL (8.5-10.1)
[2020-02-13 12:23] LABS: CREATININE SERUM 3.9 MG/DL (0.60-1.30)
[2020-02-13 12:25] LABS: MAGNESIUM 1.9 MG/DL (1.6-2.4)
--- NOTE | 2020-02-13 12:32 | Progress Note - Hospitalist ---
Subjective HPI/CC On Admission Date Seen by Provider: Feb 13, 2020 Time Seen by Provider: 09:00 Nain Espinoza is a 55 year old male who presented after an appointment with his primary care doctor revealed a significant tachycardia. Yesterday he underwent an incisional hernia repair with Dr. Waddell which was uncomplicated. He was foun d to be tachycardic to the 150s. He was sent to the emergency room. He reports abdominal pain around the incision which is 8/10. He denies any nausea or vomiting. He reports having chills last night but did not check his temperature. He reports shortness of breath, but he thinks this was due to the abdominal binder being very tight. He denies cough. He denies palpitations. He denies chest pain. Subjective/Events-last exam He is intubated. He is following commands. He was able to squeeze a with his right hand and wiggle his left toes. He was also shaking his head. Focused Exam Lactate Level 02/13/20 00:05: Lactic Acid Level 5.48*H 02/13/20 05:50: Lactic Acid Level 5.33*H 02/13/20 11:46: Lactic Acid Level Laboratory Tests Test 02/13/20 11:46 Objective Exam Vital Signs Vital Signs Date Time Temp Pulse Resp B/P (MAP) Pulse Ox O2 Delivery O2 Flow Rate FiO2 02/13/20 12:00 Mechanical Ventilator 40 02/13/20 11:45 36.2 02/13/20 11:31 99 96/65 02/13/20 11:00 26 98 40.00 Capillary Refill : Greater Than 3 Seconds General Appearance: No Apparent Distress, Other (intubated) HEENT: PERRL/EOMI, Other (endotracheal and OG tube in place) Respiratory: Lungs Clear, Normal Breath Sounds, No Respiratory Distress, Other (intubated and mechanically ventilated) Cardiovascular: Regular Rate, Rhythm, No Edema, No Murmur Gastrointestinal: Abnormal Bowel Sounds (absent), Distended, Other (wound VAC i n place) Extremity: Normal Inspection, Non Tender, No Pedal Edema Neurologic/Psychiatric: Motor Weakness, Other (awake and minimally responsive) Skin: Cool, Mottled Results/Procedures Lab Laboratory Tests 02/12/20 12:16 02/12/20 18:00 11/1/20 00:05 02/13/20 05:50 02/13/20 11:46 Patient resulted labs reviewed. Imaging: Reviewed Imaging Report Assessment/Plan Assessment and Plan Assess & Plan/Chief Complaint Septic shock Gram negative bacteremia s/p incisional hernia repair Perforated bowel s/p small bowel resection Cardiac arrest Acute respiratory failure with hypoxia and hypercapnia Endotracheally intubated Lactic acidosis High anion gap metabolic acidosis Oliguric acute kidney injury ATN Shock liver Poor prognosis Surgery consulted, Drs. Waddell and Bello, appreciate assistance Underwent open exploratory laparotomy 02/11, revealed bowel perforation, underwent washout and small bowel resection, temporary closure with likely repeat washout in coming days s/p multiple cardiac arrests now on [facility] Pulmonology consulted, Dr. Gaytan, appreciate assistance Off pressors this morning Continue stress dose steroids Intubated, vent settings improving Continue IV fluids Monitor I/O, oliguric Blood cultures growing gram negative moni Continue Zosyn Cardiology consulted, Dr. Ardon, appreciate assistance Echocardiogram showed elevated ejection fraction consistent with septic/hypovolemic shock, no right heart strain or other indication of pulmonary embolism Discussed case with his , Stephanie, emphasized poor prognosis and multi- organ failure, but also showing signs of improvement and reasons for optimism DVT Prophylaxis: prophylactic heparin Critical Care Critically Ill Patient Diagnosis/Problems Diagnosis/Problems (1) Septic shock Status: Acute (2) Gram-negative bacteremia Status: Acute (3) Lactic acidosis Status: Acute (4) CORBY (acute kidney injury) Status: Acute (5) High anion gap metabolic acidosis Status: Acute (6) S/P hernia surgery Status: Acute (7) Cardiac arrest Status: Acute (8) S/P small bowel resection Status: Acute (9) Perforated small intestine Status: Acute (10) Acute respiratory failure with hypoxia and hypercapnia Status: Acute (11) Endotracheally intubated Status: Acute (12) Hyperphosphatemia Status: Acute (13) Shock liver Status: Acute (14) Poor prognosis Status: Acute Clinical Quality Measures DVT/VTE Risk/Contraindication: Risk Factor Score Per Nursin RFS Level Per Nursing on Admit: 4+=Very High HERNANDO KNAPP MD Feb 13, 2020 12:32
--- NOTE | 2020-02-13 12:54 | NUR ---
Dr. Benitez at bedside
--- NOTE | 2020-02-13 14:06 | NUR ---
Dr. Gaytan notifed of pt RR in 30s SBP increasing to 130s, HR increasing to low 100s, et pt diaphoretic. Ok to start pt on propofol gtt.
[2020-02-13] MEDS: PROPOFOL DRIP (ICU) 100 ML IV SCH (14:17)
--- NOTE | 2020-02-13 14:31 | NUR ---
Dr. Benitez called et stated Dr. Monsalve will be coming to take pt to sx. notified.
[2020-02-13 15:03] VITALS: BP 108/79
[2020-02-13] MEDS ORDERED: ROCURONIUM 10 MG/ML 5 ML SYRINGE IV ONE ×2 (15:03→16:13)
--- NOTE | 2020-02-13 15:34 | NUR ---
Pt off floor to OR with OR staff
--- NOTE | 2020-02-13 15:49 | Progress Note-Pre Operative ---
Pre-Operative Progress Note H&P Reviewed The H&P was reviewed, patient examined and no changes noted. Date Seen by Provider: Feb 13, 2020 Time Seen by Provider: 15:00 Date H&P Reviewed: Feb 12, 2041 Time H&P Reviewed: 15:00 Pre-Operative Diagnosis: elevation lactic acid, r/o ischemic bowel RADHA MORALES MD Feb 13, 2020 15:49
[2020-02-13] MEDS ORDERED: LACTATED RINGERS 1,000 ML IV PRN (16:24)
[2020-02-13] MEDS ORDERED: ISOFLURANE (FORANE) 15 ML/15 MIN INHALATION ONE (17:23)
--- NOTE | 2020-02-13 17:29 | Progress Note-Post Operative ---
Post-Operative Progess Note Surgeon (s)/Cyber Policy And Strategy Planner (s) Surgeon RADHA MORALES MD Cyber Policy And Strategy Planner: glenn ortiz BUSINESS RECORDS MANAGER Pre-Operative Diagnosis elevation lactic acid, r/o ischemic bowel Post-Operative Diagnosis short segment ischemic small bowel near previous anastomsis with small leak. remainder of small bowel and colon appeared viable. Procedure & Operative Findings Date of Procedure 02/13/20 Procedure Performed/Findings opening recent laparotomy. small bowel resection with anastomosis. placement left subclavian central venous catheter. Anesthesia Type get Estimated Blood Loss Estimated blood loss (mL): minimal Specimens/Packing Specimens Removed small bowel RADHA MORALES MD Feb 13, 2020 17:29
--- NOTE | 2020-02-13 17:38 | NUR ---
Pt returned from OR accompanied by OR RNs, Irineo SNOW, et Dr. Monsalve. Report received. Dr. Monsalve stated to HELGA gamez at this time
--- NOTE | 2020-02-13 17:59 | NUR ---
Notified Dr. Perez et Dr. Gaytan of pt's return from OR. Spoke with Dr. Gaytan about Dr. Bello PARTIDA'ing artic sun. Order to continue Q6hr labs for mackenzie et to call [facility] with any further concers or questions for mackenzie.
[2020-02-13 18:23] LABS: MEAN CORPUSCULAR HEMOGLOBIN 33 pg (25-34)
[2020-02-13 18:25] LABS: BASOPHILS # (AUTO) 0.1 10^3/uL (0.0-0.1); BASOPHILS % (AUTO) 1 % (0-10); EOSINOPHILS % (AUTO) 0 % (0-10); HEMATOCRIT 34 % (40-54); HEMOGLOBIN 11.3 g/dL (13.3-17.7); LYMPHOCYTES # (AUTO) 0.3 10^3/uL (1.0-4.0); LYMPHOCYTES % (AUTO) 3 % (12-44); MEAN CORPUSCULAR HGB CONC 33 g/dL (32-36); MEAN CORPUSCULAR VOLUME 99 fL (80-99); MEAN PLATELET VOLUME 10.8 fL (9.0-12.2); MONOCYTES # (AUTO) 0.4 10^3/uL (0.0-1.0); MONOCYTES % (AUTO) 5 % (0-12); NEUTROPHILS # (AUTO) 8.3 10^3/uL (1.8-7.8); NEUTROPHILS % (AUTO) 84 % (42-75); PLATELET COUNT 81 10^3/uL (130-400); WHITE BLOOD COUNT 9.9 10^3/uL (4.3-11.0)
[2020-02-13 18:33] LABS: POTASSIUM 4.3 MMOL/L (3.6-5.0)
[2020-02-13 18:36] LABS: INR 1.7 (0.8-1.4); PROTHROMBIN TIME PATIENT 20.2 SEC (12.2-14.7)
[2020-02-13 18:38] LABS: PHOSPHORUS 8.5 MG/DL (2.3-4.7)
[2020-02-13 18:39] LABS: CREATININE SERUM 3.99 MG/DL (0.60-1.30)
[2020-02-13 18:41] LABS: MAGNESIUM 1.8 MG/DL (1.6-2.4)
[2020-02-13] MEDS ORDERED: CALCIUM GLUCONATE 10% INJ 4.65 MEQ in NS (IVPB) 50 ML IV ONE (19:15)
--- NOTE | 2020-02-13 19:15 | NUR ---
Dr. Benitez notified of labs
[2020-02-13 19:39] VITALS: BP 148/75
[2020-02-13] MEDS ORDERED: CALCIUM GLUC. 10% 4.65 MEQ/10 ML VIAL ONE (20:16)
[2020-02-13] MEDS ORDERED: NS (IVPB) 50 ML ONE (20:17)
[2020-02-13 20:43] LABS: ABG BASE EXCESS -1.4 MMOL/L (-2.5-2.5); ABG OXYGEN SATURATION 98 % (94-100); ABG PCO2 46 MMHG (35-45); ABG PO2 104 MMHG (79-93); ABG TCO2 25.4 MMOL/L (21.0-31.0)
[2020-02-13 20:44] LABS: ABG PH 7.33 (7.37-7.43); ALLENS TEST ART LINE
[2020-02-13 20:45] LABS: INSPIRED O2 40%; VENTILATOR YES
[2020-02-13] MEDS: NOREPINEPHRINE 8 MG in NS (IVPB) 250 ML IV SCH (21:31)
--- NOTE | 2020-02-13 22:16 | NUR ---
Pt is not squeezing hands or wiggling toes, but can move left leg. Pt is nodding and shaking head appropriately to yes/no questions. Blood pressure very labile, see IV spreadsheet for titration.
[2020-02-13 22:40] VITALS: BP 143/74
[2020-02-14] MEDS: ARTIFICIAL TEARS OINT (LACRI-LUBE) 3.5 GM TUBE OU SCH ×2 (00:50→05:31)
[2020-02-14 00:55] LABS: BASOPHILS # (AUTO) 0.1 10^3/uL (0.0-0.1); BASOPHILS % (AUTO) 1 % (0-10); EOSINOPHILS % (AUTO) 0 % (0-10); HEMATOCRIT 33 % (40-54); HEMOGLOBIN 11.1 g/dL (13.3-17.7); LYMPHOCYTES # (AUTO) 0.4 10^3/uL (1.0-4.0); LYMPHOCYTES % (AUTO) 3 % (12-44); MEAN CORPUSCULAR HEMOGLOBIN 33 pg (25-34); MEAN CORPUSCULAR HGB CONC 34 g/dL (32-36); MEAN CORPUSCULAR VOLUME 97 fL (80-99); MONOCYTES # (AUTO) 0.4 10^3/uL (0.0-1.0); MONOCYTES % (AUTO) 3 % (0-12); NEUTROPHILS # (AUTO) 11.4 10^3/uL (1.8-7.8); NEUTROPHILS % (AUTO) 84 % (42-75); PLATELET COUNT 73 10^3/uL (130-400); WHITE BLOOD COUNT 13.5 10^3/uL (4.3-11.0)
[2020-02-14 01:02] LABS: ABG BASE EXCESS 0.4 MMOL/L (-2.5-2.5); ABG OXYGEN SATURATION 98 % (94-100); ABG PCO2 43 MMHG (35-45); ABG PH 7.38 (7.37-7.43); ABG PO2 117 MMHG (79-93); ABG TCO2 26.3 MMOL/L (21.0-31.0)
[2020-02-14 01:03] LABS: ALLENS TEST ART LINE; INSPIRED O2 35%; PATIENT TEMP 36.6; VENTILATOR YES
[2020-02-14 01:06] LABS: POTASSIUM 4.2 MMOL/L (3.6-5.0)
[2020-02-14 01:09] LABS: INR 1.6 (0.8-1.4); PROTHROMBIN TIME PATIENT 19.8 SEC (12.2-14.7)
[2020-02-14 01:12] LABS: CREATININE SERUM 4.2 MG/DL (0.60-1.30); PHOSPHORUS 7.8 MG/DL (2.3-4.7)
[2020-02-14 01:14] LABS: MAGNESIUM 1.7 MG/DL (1.6-2.4)
[2020-02-14 01:17] LABS: ALBUMIN 2.2 GM/DL (3.2-4.5); BILIRUBIN,TOTAL 1.7 MG/DL (0.1-1.0)
[2020-02-14] MEDS: SODIUM BICARBONATE 8.4% VIAL 100 MEQ in D5 1/2 NS 1000 ML IV SOLUTION 1,000 ML IV SCH ×2 (01:32→08:53)
--- NOTE | 2020-02-14 01:40 | OPERATIVE REPORT ---
DATE OF SERVICE: 02/13/2020 ADMITTING PHYSICIAN: Dr. Benitez. ATTENDING SURGEON: Hasmukh Waddell DO PREOPERATIVE DIAGNOSIS: Elevation of lactic acidosis, rule out ischemic bowel. POSTOPERATIVE DIAGNOSES: Short segment of ischemic bowel near the anastomosis with a small leak the remainder of the small bowel and colon appeared to be vascularly viable. PROCEDURE: 1. Opening of recent laparotomy, small bowel resection and anastomosis 2. Placement of left subclavian central venous catheter. SURGEON: Radha Monsalve MD DIRECTOR BLOOD BANK: IVORY Cortez ANESTHESIA: General endotracheal. ESTIMATED BLOOD LOSS: Minimal. FINDINGS: Short segment of ischemic bowel near the anastomosis with a small leak. The remainder of the small bowel and colon appeared to be vascularly viable. DISPOSITION: The patient tolerated the procedure well. INDICATIONS: The patient is a 55-year-old male who underwent a laparoscopic recurrent incarcerated incisional hernia on 02/10/2020. Postoperative day #1, he became tachycardic, tachypneic as well as hypertensive. He presented to the Emergency Department where he showed signs and symptoms of sepsis. He was struggling to maintain oxygen saturation and was eventually intubated. CT scan was performed, which did show small amount of free air as well as fluid, which may have been related to post-surgical changes from her recent laparoscopic surgery. He also underwent a workup for possible pulmonary embolism with an echocardiogram, which did not show any right heart strain. The following day after admission, he did have worsening abdominal distention and pain and was brought to the operating room and underwent exploratory laparotomy and found to have a small bowel leak. He did underwent a small bowel resection and anastomosis as well as explantation of the mesh. He also underwent placement of an ABThera wound VAC. The patient has improved and was no vasopressors and his blood gases improved on 40% FiO2. The only abnormality was an elevation of lactic acid. Due to this finding, the recommendation was to proceed with reexploration of the small bowel to look for ischemic bowel. DESCRIPTION OF PROCEDURE: The patient was brought to the operating room, laid supine on the table. After adequate IV pain and sedative medications and general endotracheal intubation, the abdomen was prepped and draped in standard surgical fashion after the wound VAC was removed. We then proceeded with the 4-quadrant abdominal exploration to the abdomen. The entire small bowel and colon was ran and there appeared to be a short segment of ischemia of the small bowel right at the tip of our anastomosis along the staple line with a small leak also identified. We then proceeded with resection of the segment to good clean viable bowel and proceeded with a uphz-wi-efwl anastomosis using a EMMANUEL 45 mm stapler with 3.5 mm thickness load. The entirety of the small bowel and colon were also examined as well as the liver and there did not appear to be any other ischemic changes. The 4 quadrants of the abdomen was then copiously irrigated with warm saline. The [place] wound VAC was then in place to suction. Before the procedure, a left subclavian central venous catheter was placed and the left subclavian vein was cannulated withdrawing the venous blood and the guidewire was then inserted without any resistance. A skin incision was made using 11 blade and a tract was then created using a venous dilator and through this opening, a triple lumen central venous catheter was placed over the guidewire. All three ports liliana venous blood and saline pushed in without any resistance. The catheter was sutured to the skin using 3-0 silk interrupted sutures. Wound was then cleaned and covered with Op-Site. The patient tolerated the procedure well. He will be sent back to ICU for critical care management. Job ID: [id number] DocumentID: [id number] Dictated Date: 02/13/2020 17:38:17 City Plant Supervisor Date: 02/14/2020 01:39:39 Dictated By: RADHA MONSALVE MD [facility]
[2020-02-14] MEDS: RT-ALBUTEROL/IPRATROPIUM 3 ML (DUONEB) VIAL INH SCH ×3 (02:30→11:20)
[2020-02-14 02:31] VITALS: BP 105/55
--- NOTE | 2020-02-14 04:08 | Pulmonary Progress Note ---
Subjective Time Seen by a Provider: 04:03 Subjective/Events-last exam Pt is now following simple commands. He is now only requiring 30% oxygen. Sepsis Event Evaluation Height, Weight, BMI Height: 6'2.00" Weight: 217lbs. 6.0oz. 98.294933vi; 26.48 BMI Method: Focused Exam Lactate Level 02/13/20 11:46: Lactic Acid Level 6.08*H 02/13/20 18:10: Lactic Acid Level 5.02*H 02/14/20 00:38: Lactic Acid Level 3.74*H Lactic Acid Level Laboratory Tests Test 02/14/20 00:38 Lactic Acid Level 3.74 MMOL/L (0.50-2.00) *H Exam Exam Vital Signs Date Time Temp Pulse Resp B/P (MAP) Pulse Ox O2 Delivery O2 Flow Rate FiO2 02/14/20 02:31 112 38 98 35 02/14/20 02:09 Mechanical Ventilator 30.00 02/14/20 02:00 36.7 117 98 Mechanical Ventilator 21.00 02/14/20 01:49 Mechanical Ventilator 21.00 02/14/20 01:00 101 02/14/20 01:00 36.7 108 95 Mechanical Ventilator 40.00 02/14/20 00:00 Mechanical Ventilator 35 02/14/20 00:00 36.4 101 26 97 Mechanical Ventilator 40.00 02/13/20 23:51 109 82/50 02/13/20 23:00 36.4 116 25 91 Mechanical Ventilator 40.00 Automatic Cuff 02/13/20 22:40 109 28 95 35 02/13/20 22:00 36.1 88 25 94 Mechanical Ventilator 40.00 02/13/20 21:09 35.9 Mechanical Ventilator 35.00 02/13/20 21:00 35.9 105 25 95 Mechanical Ventilator 40.00 02/13/20 20:00 36.1 109 25 86 Mechanical Ventilator 40.00 02/13/20 20:00 Mechanical Ventilator 40 02/13/20 19:39 107 26 90 40 02/13/20 19:00 96 02/13/20 19:00 36.0 101 25 Mechanical Ventilator 40.00 Automatic Cuff 02/13/20 18:30 36.0 02/13/20 18:00 90 25 123/81 95 Mechanical Ventilator 40.00 02/13/20 17:55 93 20 136/91 95 Mechanical Ventilator 40.00 02/13/20 15:30 36.0 02/13/20 15:30 Mechanical Ventilator 40 02/13/20 15:15 36.1 02/13/20 15:03 88 32 96 40 02/13/20 15:00 90 25 106/75 97 Mechanical Ventilator 40.00 02/13/20 15:00 36.2 02/13/20 14:45 36.3 02/13/20 14:30 36.3 02/13/20 14:17 97 101/72 02/13/20 14:15 36.5 02/13/20 14:00 109 39 116/63 98 Mechanical Ventilator 40.00 02/13/20 14:00 36.6 02/13/20 13:58 36.7 02/13/20 13:45 36.8 02/13/20 13:30 36.8 02/13/20 13:15 36.8 02/13/20 13:00 98 31 122/85 99 Mechanical Ventilator 40.00 02/13/20 13:00 36.7 02/13/20 12:50 36.6 02/13/20 12:45 36.5 02/13/20 12:30 36.5 02/13/20 12:25 97 02/13/20 12:15 36.5 02/13/20 12:00 36.3 02/13/20 12:00 96 26 101/72 98 Mechanical Ventilator 40.00 02/13/20 12:00 Mechanical Ventilator 40 02/13/20 11:45 36.2 02/13/20 11:31 99 96/65 02/13/20 11:30 36.1 02/13/20 11:15 36.0 02/13/20 11:00 99 26 96/65 98 Mechanical Ventilator 40.00 02/13/20 11:00 35.9 02/13/20 10:45 35.8 02/13/20 10:38 101 26 98 40 02/13/20 10:30 35.8 02/13/20 10:15 35.7 02/13/20 10:05 35.7 02/13/20 10:00 102 25 104/58 99 Mechanical Ventilator 40.00 02/13/20 10:00 35.7 02/13/20 09:45 35.6 02/13/20 09:30 35.6 02/13/20 09:15 35.5 02/13/20 09:00 101 27 117/66 94 Mechanical Ventilator 40.00 02/13/20 09:00 35.5 02/13/20 08:45 35.5 02/13/20 08:30 35.5 02/13/20 08:27 Mechanical Ventilator 40 02/13/20 08:15 35.5 02/13/20 08:00 35.6 02/13/20 08:00 35.5 02/13/20 08:00 86 26 104/80 91 Mechanical Ventilator 40.00 02/13/20 07:45 35.6 02/13/20 07:30 35.6 02/13/20 07:19 85 26 96 40 02/13/20 07:15 35.6 02/13/20 07:00 82 02/13/20 07:00 81 26 112/81 92 Mechanical Ventilator 40.00 02/13/20 07:00 35.6 02/13/20 06:36 35.5 02/13/20 06:34 35.5 02/13/20 06:00 82 26 119/88 90 Mechanical Ventilator 40.00 02/13/20 05:50 35.8 02/13/20 05:50 35.8 02/13/20 05:24 36.0 02/13/20 05:24 36.0 02/13/20 05:00 87 25 112/86 90 Mechanical Ventilator 40.00 02/13/20 04:45 36.0 02/13/20 04:06 Mechanical Ventilator 40 I & O 02/14/20 07:00 Intake Total 5156 ml Output Total 771 ml Balance 4385 ml Height & Weight Height: 6'2.00" Weight: 217lbs. 6.0oz. 98.099961lc; 26.48 BMI Method: General Appearance: No Apparent Distress, Other (intubated) HEENT: PERRL/EOMI, Other (endotracheal and OG tube in place) Neck: Full Range of Motion Respiratory: Lungs Clear, Normal Breath Sounds, No Respiratory Distress, Other (intubated and mechanically ventilated) Cardiovascular: Regular Rate, Rhythm, No Edema, No Murmur Capillary Refill: Greater Than 3 Seconds Gastrointestinal: soft, other (open abd with wound vac in place) Extremity: Normal Inspection, Non Tender, No Pedal Edema Neurologic/Psychiatric: Motor Weakness, Other (awake and minimally responsive) Skin: Cool, Mottled Lymphatic: No Adenopathy Results Lab Laboratory Tests 02/12/20 08:32 02/12/20 12:16 02/12/20 18:00 02/13/20 00:05 02/13/20 05:50 02/13/20 11:46 02/13/20 18:10 02/14/20 00:38 Assessment/Plan Assessment/Plan Acute respiratory failure s/p Cardiac arrest. -EICU managed patient through the night -Pt is on vent. -Continue Fentanyl add propofol S/p Lap incarcerated incisional hernia repair POD 3, s/p ex lap with repair POD 1 -Dr. Waddell and Dr. Monsalve following S/p cardiac arrest x 4 -s/p therapeutic hypothermia -Pt is now euthermic and following commands. septic Shock -- improved -Currently off Levophed, Vasopressin -off ammiodarone gtt -Cardiology following -S.p echo - was not suggestive of PE -Vanco, Zosyn, and Diflucan -D/C Vancomycin- MRSA swab is negative. -Rodriguez cultures pending Acute renal failure with metabolic acidosis, Oliguria, and hyperphos -Continue bicarb gtt -40ml over last 8hr. Pt will need transferred for HD. -Give another liter bolus of LR. Metabolic lactic acidosis -IVF -Give another liter bolus of NS Marijuanna dependance -UDS is positive for Marijuanna Hx of Bipolar -Hold psych meds for now Update 0715: I spoke with Dr. Waddell he agrees with transfer for HD. I spoke with daughter who is also in agreement with transfer. I called [facility] for transfer they do not have ICU meds available. I called [facility] and gave all information for request of transfer. They are will call me back after discussing with their doctors. Critical Care: Critically Ill Patient Time spent with patient (mins): 60 EZEQUIEL MAHARAJ DO Feb 14, 2020 04:08
[2020-02-14] MEDS ORDERED: LACTATED RINGERS 1,000 ML IV SCH ×2 (04:15→07:15)
[2020-02-14] MEDS: fentaNYL 1,250 MCG/NS 250 ML DRIP IV SCH ×2 (04:20→11:16)
[2020-02-14] MEDS: EPINEPHrine 1 MG INJECTION 4 MG in NS (IVPB) 246 ML IV SCH (05:06)
[2020-02-14] MEDS: HYDROCORTISONE 100 MG/2 ML (Solu-CORTEF) VIAL IV SCH (05:30)
[2020-02-14] MEDS: PIPERACILLIN/TAZO 4.5 GM/NS 100 ML IV SCH ×2 (05:33)
--- NOTE | 2020-02-14 06:20 | Diagnostic Imaging Report ---
INDICATION: Shortness of breath, intubated COMPARISON: 02/13/2020 FINDINGS: Single view of the chest demonstrates unchanged aeration of both lungs. The heart is prominent. There is no pneumothorax. The NG tube is pulled back into the distal esophagus. The ET tube is stable. Osseous structures are age-appropriate. IMPRESSION: 1. The NG tube tip now in the distal esophagus. Recommend advancing 6 cm 2. Unchanged aeration of the lungs. Dictated by: Dictated on workstation # [id number]
[2020-02-14 06:24] LABS: HEMATOCRIT 30 % (40-54); HEMOGLOBIN 10.2 g/dL (13.3-17.7); MEAN CORPUSCULAR HEMOGLOBIN 33 pg (25-34); MEAN CORPUSCULAR HGB CONC 34 g/dL (32-36); MEAN CORPUSCULAR VOLUME 97 fL (80-99)
[2020-02-14 06:26] LABS: BASOPHILS # (AUTO) 0.1 10^3/uL (0.0-0.1); BASOPHILS % (AUTO) 1 % (0-10); EOSINOPHILS % (AUTO) 0 % (0-10); LYMPHOCYTES # (AUTO) 0.3 10^3/uL (1.0-4.0); LYMPHOCYTES % (AUTO) 2 % (12-44); MEAN PLATELET VOLUME 11.3 fL (9.0-12.2); MONOCYTES # (AUTO) 0.4 10^3/uL (0.0-1.0); MONOCYTES % (AUTO) 3 % (0-12); NEUTROPHILS # (AUTO) 10.5 10^3/uL (1.8-7.8); NEUTROPHILS % (AUTO) 91 % (42-75); PLATELET COUNT 55 10^3/uL (130-400); WHITE BLOOD COUNT 11.5 10^3/uL (4.3-11.0)
[2020-02-14 06:32] LABS: POTASSIUM 4.1 MMOL/L (3.6-5.0)
[2020-02-14 06:37] LABS: CALCIUM 5.9 MG/DL (8.5-10.1)
[2020-02-14 06:38] LABS: CREATININE SERUM 4.43 MG/DL (0.60-1.30); INR 1.4 (0.8-1.4); PHOSPHORUS 6.6 MG/DL (2.3-4.7); PROTHROMBIN TIME PATIENT 17.4 SEC (12.2-14.7)
[2020-02-14 06:40] LABS: MAGNESIUM 1.6 MG/DL (1.6-2.4)
[2020-02-14] MEDS ORDERED: CALCIUM GLUCONATE 10% INJ 4.65 MEQ in NS (IVPB) 50 ML IV ONE (07:15)
[2020-02-14 08:14] VITALS: BP 96/55
[2020-02-14] MEDS: FLUCONAZOLE 200 MG/100 ML 50 ML, EMPTY IV BAG (PVC) 1 EA IV SCH ×2 (08:53)
[2020-02-14] MEDS: PANTOPRAZOLE 40 MG (PROTONIX) VIAL IV SCH (08:53)
--- NOTE | 2020-02-14 09:08 | Progress Note - Hospitalist ---
Subjective HPI/CC On Admission Date Seen by Provider: Feb 14, 2020 Time Seen by Provider: 09:08 Nain Espinoza is a 55 year old male who presented after an appointment with his primary care doctor revealed a significant tachycardia. Yesterday he underwent an incisional hernia repair with Dr. Waddell which was uncomplicated. He was foun d to be tachycardic to the 150s. He was sent to the emergency room. He reports abdominal pain around the incision which is 8/10. He denies any nausea or vomiting. He reports having chills last night but did not check his temperature. He reports shortness of breath, but he thinks this was due to the abdominal binder being very tight. He denies cough. He denies palpitations. He denies chest pain. Focused Exam Lactate Level 02/14/20 00:38: Lactic Acid Level 3.74*H 02/14/20 06:00: Lactic Acid Level 3.92*H 02/14/20 08:09: Lactic Acid Level 3.63*H Lactic Acid Level Objective Exam Vital Signs Vital Signs Date Time Temp Pulse Resp B/P (MAP) Pulse Ox O2 Delivery O2 Flow Rate FiO2 02/14/20 12:00 Mechanical Ventilator 30 02/14/20 12:00 36.4 103 22 108/60 83 02/14/20 11:00 30.00 Capillary Refill : Greater Than 3 Seconds Results/Procedures Lab Laboratory Tests 02/13/20 18:10 02/14/20 00:38 02/14/20 06:00 Patient resulted labs reviewed. Imaging: Reviewed Imaging Report Assessment/Plan Critical Care Critically Ill Patient Clinical Quality Measures DVT/VTE Risk/Contraindication: Risk Factor Score Per Nursin RFS Level Per Nursing on Admit: 4+=Very High AN RUSS MD Feb 14, 2020 09:08
--- NOTE | 2020-02-14 09:15 | Cardiology Progress Note ---
Subjective Date Seen by Provider: Feb 14, 2020 Time Seen by Provider: 09:12 Subjective/Events-last exam Patient is sedated and intubated Became more agitated last night and sedation was initiated. He was following simple commands according to the nurses notes last night Review of Systems General: Other (sedated and intubated) Focused Exam Lactate Level 02/14/20 00:38: Lactic Acid Level 3.74*H 02/14/20 06:00: Lactic Acid Level 3.92*H 02/14/20 08:09: Lactic Acid Level 3.63*H Lactic Acid Level Laboratory Tests Test 02/14/20 06:00 02/14/20 08:09 Lactic Acid Level 3.92 MMOL/L (0.50-2.00) *H 3.63 MMOL/L (0.50-2.00) *H Objective-Cardiology Exam Last Set of Vital Signs Vital Signs 02/13/20 02/14/20 02/14/20 02/14/20 23:51 06:00 08:00 08:14 Temp 36.4 Pulse 100 Resp 26 B/P (MAP) 82/50 Pulse Ox 97 O2 Delivery Mechanical Ventilator O2 Flow Rate 30.00 FiO2 30 Capillary Refill : Greater Than 3 Seconds I&O Intake and Output 02/14/20 00:00 Intake Total 7322 ml Output Total 1351 ml Balance 5971 ml Intake IV Total 7322 ml Output Urine Total 251 ml Gastric Drainage Total 300 ml Other 800 ml General: Other (sedated and intubated) HEENT: Atraumatic Neck: Supple Lungs: Clear to Auscultation, Normal Air Movement Heart: Regular Rate, Normal S1, Normal S2 Abdomen: Other (distended abdomen, absent bowel sounds) Extremities: No Clubbing, No Cyanosis Skin: No Rashes, Other (abdominal wound) Neuro: Other (sedated and intubated) Psych/Mental Status: Other (sedated and intubated) Results Lab Laboratory Tests 02/13/20 11:46 02/13/20 18:10 02/14/20 00:38 02/14/20 06:00 A/P-Cardiology Admission Diagnosis Acute respiratory failure Hypotensive shock Acute renal failure Metabolic acidosis Assessment/Plan Acute respiratory failure ventilator dependent, managed by Dr. Gaytan Acute renal failure, oliguria, possible transfer to a tertiary care center for dialysis Elevated liver enzymes, shock liver, slight improvement in liver enzymes today, managed by plate fitter Hypotensive shock, probably septic shock. Currently off all pressors and blood pressure is better. Continue to monitor Status post ventricular tachycardia, ventricular fibrillation, required shock and started on amiodarone drip. Currently off amiodarone drip and in sinus rhythm. Continue to monitor Status post recent incisional hernia repair done on February 10, 2020. Metabolic acidosis, lactic acidosis and electrolytes in balance, managed by primary care team History of bipolar disorder. Clinical Quality Measures DVT/VTE Risk/Contraindication: Risk Factor Score Per Nursin RFS Level Per Nursing on Admit: 4+=Very High CHAPO RODRIGUEZ MD Feb 14, 2020 09:15
[2020-02-14] MEDS ORDERED: IBUP-2473 PO (09:51)
[2020-02-14] MEDS ORDERED: LISI1TAB29 PO (09:51)
[2020-02-14] MEDS ORDERED: DOCU100C37 PO (09:51)
[2020-02-14] MEDS ORDERED: ACHD5005 PO (09:51)
[2020-02-14] MEDS ORDERED: NAPR220C11 PO (09:51)
--- NOTE | 2020-02-14 09:54 | NUR ---
UNABLE TO SPEAK WITH PT AT THE IS TIME- I DID CALL HIS (KULDIP) AND WENT THRU THE EXT MED HISTORY TO COMPLETE THE MED REC KULDIP WAS ABLE TO NAME PTS MEDICATIONS WELL TELL ME ABOUT THE NEW MEDICATIONS HE STARTED AFTER HIS PROCEDURE ON 02-11-2020 KULDIP DID SAY THE INFORMATION SHE GAVE ME FAR THE DIRECTIONS FOR THE MEDICATIONS IS WHAT SHE THINKS HE IS USING. SHE ADMITS "HE THE KIND OF SMITH TO DO WHAT HE WANTS AND DOESNT FOLLOW DIRECTIONS. IF THE DIRECTIONS ARE TO TAKE 1 TABLET FOR PAIN HE MAY TAKE MORE UNTIL HE GETS RELIEF" KULDIP ALSO LET ME KNOW THAT PRIOR TO PTS PROCEDURE HE WAS TAKING "LARGE AMOUNTS OF IBUPROFEN AND NAPROXEN FOR SCIATIC PAIN"
--- NOTE | 2020-02-14 10:19 | Physical Therapy Progress Note ---
Therapy Progress Note Physician is attempting to transfer patient to due to currently medical status. RN requests to hold therapy treatment at this time due to current status. KIRA BENTLEY PT Feb 14, 2020 10:19
--- NOTE | 2020-02-14 10:19 | NUR ---
DR MAHARAJ NOTIFIED THIS NURSE PT IS TO BE TRANSFERRED BY [facility]. THIS NURSE NOTIFIED NINI BERUMEN AND JONNY. Addendum: 02/14/20 at 1340 by OZIEL PRAJAPATI RN THIS NURSE ALSO UPDATED KULDIP. AGREEABLE WITH JONNY.
--- NOTE | 2020-02-14 10:20 | NUR ---
THIS NURSE CALLED REPORT TO NINI BERUMEN AT [facility].
[2020-02-14] MEDS: PROPOFOL DRIP (ICU) 100 ML IV SCH (11:17)
--- NOTE | 2020-02-14 11:27 | NUR ---
CM/SS: JAMAICA Oconnell has requested a phone call to spouse related to transfer to and if the insurance provider- [employer] is in the network. Spouse is Stephanie - [phone], . Telephone call to Stephanie - spouse - [phone] - Discuss with her about the insurance. This worker had previously looked at [facility] website. The phone number is obtained [phone]. She is informed that [employer] is listed as one insurance that is accepted. She is also given the phone number to call and ask about the insurance. She thanks this worker for the information.
--- NOTE | 2020-02-14 11:28 | Anesthesia-General Post-Op ---
General Post Op Complications Complications Patient has returned to OR 3 times since initial outpatient surgery on 02/10/20. He remains intubated. Follow Up Care/Instructions Patient Instructions None needed. Anesthesia/Patient Condition Patient Condition Patient remains on ventilator. Art pressure showed 80/30's this am, HR 100, SaO2 WNL on FiO2 30%. Patient's nurse stated he was doing better after his surgery Friday afternoon. She said his VS were stable and he was responding appropriately to questions early this am. We will continue to be available for further consultation. IRWIN LOPEZ CRNA Feb 14, 2020 11:28
[2020-02-14 12:00] VITALS: BP 108/60
--- NOTE | 2020-02-14 12:02 | Occ Therapy Progress Note ---
Therapy Progress Note Will continue to follow pt. Order received. Pt. currently having medical issues. Transfer is being attempted. Nursing requests to PT to hold therapy this date. 1202 JAYA MARTINEZ OT Feb 14, 2020 12:02
--- NOTE | 2020-02-14 12:11 | NUR ---
THIS NURSE UPDATE THE KULDIP ON PT CONDITION. PT WAS TAKEN BY JONNY. GIVEN ROOM NUMBER AND NEW FLOOR NUMBER TO REACH THE NURSE.
--- NOTE | 2020-02-14 12:17 | Progress Note - Surgery ---
NÉSTOR SOLARES MED STUDENT 02/14/20 1217: Subjective Date Seen by a Provider: Feb 14, 2020 Time Seen by a Provider: 07:45 Subjective/Events-last exam Pt intubated, sedated, on ventilator. Creatinine 4.43, lactate 3.92. Urine output was 0.08 ml/kg/hr yesterday from 0.11 the day prior. Per nurse, Dr. Gaytan is working on transferring pt to [facility] for hemodialysis. Focused Exam Lactate Level 02/14/20 00:38: Lactic Acid Level 3.74*H 02/14/20 06:00: Lactic Acid Level 3.92*H 02/14/20 08:09: Lactic Acid Level 3.63*H Objective Exam Vital Signs Date Time Temp Pulse Resp B/P (MAP) Pulse Ox O2 Delivery O2 Flow Rate FiO2 02/14/20 11:17 108/60 02/14/20 11:00 36.4 103 22 83 Mechanical Ventilator 30.00 02/14/20 10:00 36.3 105 25 97 Mechanical Ventilator 30.00 02/14/20 09:00 36.2 100 26 94 Mechanical Ventilator 30.00 02/14/20 08:14 100 26 97 30 02/14/20 08:00 36.3 104 25 89 Mechanical Ventilator 30.00 02/14/20 08:00 94 Mechanical Ventilator 30 02/14/20 07:00 36.3 110 28 95 Mechanical Ventilator 30.00 02/14/20 06:50 111 02/14/20 06:00 36.4 117 30 94 Mechanical Ventilator 30.00 02/14/20 05:00 36.6 108 26 96 Mechanical Ventilator 30.00 02/14/20 04:00 36.7 101 25 97 Mechanical Ventilator 30.00 02/14/20 04:00 Mechanical Ventilator 30 02/14/20 03:00 36.4 105 26 98 Mechanical Ventilator 30.00 02/14/20 02:31 112 38 98 35 02/14/20 02:09 Mechanical Ventilator 30.00 02/14/20 02:00 36.7 117 98 Mechanical Ventilator 21.00 02/14/20 01:49 Mechanical Ventilator 21.00 02/14/20 01:00 101 02/14/20 01:00 36.7 108 95 Mechanical Ventilator 40.00 02/14/20 00:00 Mechanical Ventilator 35 02/14/20 00:00 36.4 101 26 97 Mechanical Ventilator 40.00 02/13/20 23:51 109 82/50 02/13/20 23:00 36.4 116 25 91 Mechanical Ventilator 40.00 Automatic Cuff 02/13/20 22:40 109 28 95 35 02/13/20 22:00 36.1 88 25 94 Mechanical Ventilator 40.00 02/13/20 21:09 35.9 Mechanical Ventilator 35.00 02/13/20 21:00 35.9 105 25 95 Mechanical Ventilator 40.00 02/13/20 20:00 36.1 109 25 86 Mechanical Ventilator 40.00 02/13/20 20:00 Mechanical Ventilator 40 02/13/20 19:39 107 26 90 40 02/13/20 19:00 96 02/13/20 19:00 36.0 101 25 Mechanical Ventilator 40.00 Automatic Cuff 02/13/20 18:30 36.0 02/13/20 18:00 90 25 123/81 95 Mechanical Ventilator 40.00 02/13/20 17:55 93 20 136/91 95 Mechanical Ventilator 40.00 02/13/20 15:30 36.0 02/13/20 15:30 Mechanical Ventilator 40 02/13/20 15:15 36.1 02/13/20 15:03 88 32 96 40 02/13/20 15:00 90 25 106/75 97 Mechanical Ventilator 40.00 02/13/20 15:00 36.2 02/13/20 14:45 36.3 02/13/20 14:30 36.3 02/13/20 14:17 97 101/72 02/13/20 14:15 36.5 02/13/20 14:00 109 39 116/63 98 Mechanical Ventilator 40.00 02/13/20 14:00 36.6 02/13/20 13:58 36.7 02/13/20 13:45 36.8 02/13/20 13:30 36.8 02/13/20 13:15 36.8 02/13/20 13:00 98 31 122/85 99 Mechanical Ventilator 40.00 02/13/20 13:00 36.7 02/13/20 12:50 36.6 02/13/20 12:45 36.5 02/13/20 12:30 36.5 02/13/20 12:25 97 02/13/20 12:15 36.5 I & O 02/14/20 07:00 Intake Total 6406 ml Output Total 1211 ml Balance 5195 ml Capillary Refill : Greater Than 3 Seconds General Appearance: WD/WN, Other (intubated and sedated) HEENT: Other (endotracheal and OG tube in place) Neck: Normal Inspection Respiratory: Lungs Clear, Other (Slightly tachypneic) Cardiovascular: No Murmur, Tachycardia, Other (bleeding from site of central line) Gastrointestinal: other (open abd with wound vac in place) Extremity: Normal Inspection, No Pedal Edema; No Slow Capillary Refill Neurologic/Psychiatric: Other (sedated) Skin: Normal Color, Damp Lymphatic: No Adenopathy Results Lab Laboratory Tests 02/13/20 13:14: Glucometer 143H 02/13/20 14:02: Glucometer 133H 02/13/20 15:26: Glucometer 129H 02/13/20 18:10: White Blood Count 9.9, Red Blood Count 3.42L, Hemoglobin 11.3L, Hematocrit 34L, Mean Corpuscular Volume 99, Mean Corpuscular Hemoglobin 33, Mean Corpuscular Hemoglobin Concent 33, Red Cell Distribution Width 13.4, Platelet Count 81L, Mean Platelet Volume 10.8, Immature Granulocyte % (Auto) 8, Neutrophils (%) ( Auto) 84H, Lymphocytes (%) (Auto) 3L, Monocytes (%) (Auto) 5, Eosinophils (%) (Auto) 0, Basophils (%) (Auto) 1, Neutrophils # (Auto) 8.3H, Lymphocytes # (Auto) 0.3L, Monocytes # (Auto) 0.4, Eosinophils # (Auto) 0.0, Basophils # (Auto) 0.1, Immature Granulocyte # (Auto) 0.7H, Prothrombin Time 20.2H, INR Comment 1.7H, Activated Partial Thromboplast Time 43H, Sodium Level 137, Potassium Level 4.3, Chloride Level 96L, Carbon Dioxide Level 21, Anion Gap 20H, Blood Urea Nitrogen 45H, Creatinine 3.99H, Estimat Glomerular Filtration Rate 16, BUN/Creatinine Ratio 11, Glucose Level 125H, Lactic Acid Level 5.02*H, Calcium Level 6.0*L, Phosphorus Level 8.5H, Magnesium Level 1.8 02/13/20 20:30: Blood Gas Puncture Site LEFT RADIAL, Blood Gas Patient Temperature 36.0, Arterial Blood pH 7.33*L, Arterial Blood Partial Pressure CO2 46H, Arterial Blood Partial Pressure O2 104H, Arterial Blood HCO3 24, Arterial Blood Total CO2 25.4, Arterial Blood Oxygen Saturation 98, Arterial Blood Base Excess -1.4, Al sommer Test ART LINE, Blood Gas Ventilator Setting YES, Blood Gas Inspired Oxygen 40% 02/14/20 00:38: White Blood Count 13.5H, Red Blood Count 3.37L, Hemoglobin 11.1L, Hematocrit 33L , Mean Corpuscular Volume 97, Mean Corpuscular Hemoglobin 33, Mean Corpuscular Hemoglobin Concent 34, Red Cell Distribution Width 13.4, Platelet Count 73L, Mean Platelet Volume 11.0, Immature Granulocyte % (Auto) 9, Neutrophils (%) (Auto) 84H, Lymphocytes (%) (Auto) 3L, Monocytes (%) (Auto) 3, Eosinophils (%) (Auto) 0, Basophils (%) (Auto) 1, Neutrophils # (Auto) 11.4H, Lymphocytes # (Auto) 0.4L, Monocytes # (Auto) 0.4, Eosinophils # (Auto) 0.0, Basophils # (Auto) 0.1, Immature Granulocyte # (Auto) 1.2H, Prothrombin Time 19.8H, INR Comment 1.6H, Activated Partial Thromboplast Time 44H, Sodium Level 139, Potassium Level 4.2, Chloride Level 97L, Carbon Dioxide Level 22, Anion Gap 20H, Blood Urea Nitrogen 48H, Creatinine 4.20H, Estimat Glomerular Filtration Rate 15, BUN/Creatinine Ratio 11, Glucose Level 126H, Lactic Acid Level 3.74*H, Calcium Level 6.0*L, Corrected Calcium 7.4L, Phosphorus Level 7.8H, Magnesium Level 1.7, Total Bilirubin 1.7H, Aspartate Amino Transf (AST/SGOT) 635H, Alanine Aminotransferase (ALT/SGPT) 532#H, Alkaline Phosphatase 49, Total Protein 4.0L, Albumin 2.2L 02/14/20 00:50: Blood Gas Puncture Site LEFT ART LINE, Blood Gas Patient Temperature 36.6, Arterial Blood pH 7.38, Arterial Blood Partial Pressure CO2 43, Arterial Blood Partial Pressure O2 117H, Arterial Blood HCO3 25, Arterial Blood Total CO2 26.3, Arterial Blood Oxygen Saturation 98, Arterial Blood Base Excess 0.4, Aristeo Test ART LINE, Blood Gas Ventilator Setting YES, Blood Gas Inspired Oxygen 35% 02/14/20 06:00: White Blood Count 11.5H, Red Blood Count 3.08L, Hemoglobin 10.2L, Hematocrit 30L , Mean Corpuscular Volume 97, Mean Corpuscular Hemoglobin 33, Mean Corpuscular Hemoglobin Concent 34, Red Cell Distribution Width 13.3, Platelet Count 55L, Mean Platelet Volume 11.3, Immature Granulocyte % (Auto) 2, Neutrophils (%) (Auto) 91H, Lymphocytes (%) (Auto) 2L, Monocytes (%) (Auto) 3, Eosinophils (%) (Auto) 0, Basophils (%) (Auto) 1, Neutrophils # (Auto) 10.5H, Lymphocytes # (Auto) 0.3L, Monocytes # (Auto) 0.4, Eosinophils # (Auto) 0.0, Basophils # (Auto) 0.1, Immature Granulocyte # (Auto) 0.2H, Prothrombin Time 17.4H, INR Comment 1.4, Activated Partial Thromboplast Time 42H, Sodium Level 138, Potassium Level 4.1, Chloride Level 97L, Carbon Dioxide Level 24, Anion Gap 17H, Blood Urea Nitrogen 50H, Creatinine 4.43H, Estimat Glomerular Filtration Rate 14, BUN/Creatinine Ratio 11, Glucose Level 112H, Lactic Acid Level 3.92*H, Calcium Level 5.9*L, Phosphorus Level 6.6H, Magnesium Level 1.6 02/14/20 08:09: Lactic Acid Level 3.63*H Microbiology 02/12/20 Gram Stain - Final, Resulted 02/12/20 Anaerobic Culture, Resulted Pending 02/12/20 Surgical Culture - Preliminary, Resulted Serratia marcescens Enterobacter cloacae complex 02/12/20 Blood Culture - Preliminary, Resulted No growth 02/12/20 Gram Stain - Final, Resulted 02/12/20 Sputum Culture - Preliminary, Resulted No growth 02/12/20 Urine Culture - Final, Complete NO GROWTH Assessment/Plan Assessment/Plan Assessment/Plan s/p exploratory laparotomy, SBR, and mesh explantation. cont IV abx and antifungal. cont vent ween. cont bicarb gtt. systemic hypothermia per critical care work on placement at [facility] for hemodialysis Clinical Quality Measures DVT/VTE Risk/Contraindication: Risk Factor Score Per Nursin RFS Level Per Nursing on Admit: 4+=Very High KEAGAN WADDELL DO 02/14/20 1345: Subjective Subjective/Events-last exam Patient intubated and sedated. Abthera vac in place due to open abdomen. Patient needing dialysis and Dr. Gaytan arranged transfer to . Objective Exam General Appearance: Other (intubated and sedated) HEENT: Other (endotracheal and OG tube in place) Neck: Normal Inspection Respiratory: Other (Slightly tachypneic) Cardiovascular: Tachycardia, Other (small about of blood left subcavian area from site of central line) Gastrointestinal: other (open abd with wound vac in place, left upper quadrant wound packed) Neurologic/Psychiatric: Other (sedated) Skin: Normal Color Lymphatic: No Adenopathy Assessment/Plan Assessment/Plan Assessment/Plan s/p laparoscopic incarcerated incsisional herina code blue x 4 acute respiratory failure s/p exploratory laparotomy, SBR, and mesh explantation. abdominal compartment syndrome small bowel perforation ischemic bowel open abdomen Acute renal failure with metabolic acidosis Oliguria, hyperphos Marijuana dependence Bipolar conitnue IV ABX Wean vent as tolerates need HD unable to be done here, Dr. Gaytan transferring to Abthera vac in place Supervisory-Addendum Brief Verification & Attestation Participated in pt care: history, MDM, physical Personally performed: exam, history, MDM, supervision of care Care discussed with: Medical Student Procedures: n/a Results interpretation: Verified all documentation Verification and Attestation of Medical Student E/M Service A medical student performed and documented this service in my presence. I reviewed and verified all information documented by the medical student and made modifications to such information, when appropriate. I personally performed the physical exam and medical decision making. Keagan Waddell, Feb 14, 2020,13:53 NÉSTOR SOLARES MED STUDENT Feb 14, 2020 12:17 KEAGAN WADDELL DO Feb 14, 2020 13:45
--- NOTE | 2020-02-14 13:42 | Discharge Summary ---
Diagnosis/Chief Complaint Date of Admission Feb 11, 2020 at 17:25 Date of Discharge Feb 14, 2020 at 12:05 Admission Diagnosis Septic shock Primary Care Garcia,Rosie Jamison Automatic Developer Discharge Diagnosis (1) Septic shock Status: Acute (2) Gram-negative bacteremia Status: Acute (3) Lactic acidosis Status: Acute (4) CORBY (acute kidney injury) Status: Acute (5) High anion gap metabolic acidosis Status: Acute (6) S/P hernia surgery Status: Acute (7) Cardiac arrest Status: Acute (8) S/P small bowel resection Status: Acute (9) Perforated small intestine Status: Acute (10) Acute respiratory failure with hypoxia and hypercapnia Status: Acute (11) Endotracheally intubated Status: Acute (12) Hyperphosphatemia Status: Acute (13) Shock liver Status: Acute (14) Poor prognosis Status: Acute Discharge Summary Procedures/Consulations Dr Gaytan and eICU- Pulm Dr Waddell and Dr Monsalve- Surgery Dr Ardon- Cardiology Anesthesia Discharge Physical Exam Allergies: Coded Allergies: levofloxacin (Verified Allergy, Mild, HIVES, 02/10/20) Sulfa (Sulfonamide Antibiotics) (Verified Allergy, Unknown, HIVES, 04/10/18) ciprofloxacin (Verified Allergy, Unknown, itching, 04/10/18) metronidazole (Verified Allergy, Unknown, itching, 04/10/18) midazolam (Verified Adverse Reaction, Unknown, "made me crazy for a week", 04/10/18) Vitals & I&Os Vital Signs Date Time Temp Pulse Resp B/P (MAP) Pulse Ox O2 Delivery O2 Flow Rate FiO2 02/14/20 12:00 Mechanical Ventilator 30 02/14/20 12:00 36.4 103 22 108/60 83 02/14/20 11:00 30.00 General Appearance: Other (ill appearing, intubated, sedated) Respiratory: Decreased Breath Sounds, Other (on vent) Cardiovascular: Regular Rate, Rhythm, No Murmur Gastrointestinal: Soft, Abnormal Bowel Sounds (quiet), Other (wound vac in place) Neurologic/Psychiatric: Other (sedated, appears comfortable) Hospital Course Pt was admitted to the hospital due to postoperative bowel perforation. He had a very complicated course while he was here. He had outpatient hernia repair done the day before admission and was noted to be tachycardiac at his PCPs office the day of admission and referred to the ER. He was admitted with lactic acidosis, CORBY, and concern for PE. He continued to worsen and was taken to the OR for diagnostic lap. Unfortunately just before surgery but after intubation he suffered cardiac arrest. ROSC was obtained and he was returned to the ICU in critical state on mechanical ventilation and multiple pressors. He then developed abdominal compartment syndrome with unstable blood pressures and abdomen was opened at the bedside and sandra drain placed. He was then able to be taken to the OR for washout and resection. Upon arrival back from the OR he again suffered cardiac arrest. Again ROSC was obtained and he was placed on [place] protocol. He was on the [place] protocol for roughly 24 hours and had increasing lactic acidosis. He was again returned from the OR with repeat resection from ischemic bowel. His surgical issues stabilized but unfortunately he developed acute renal failure with anuria. Transfer was attempted to [facility] in [place] but they were on diversion. He was accepted at [facility] and was tranferred there via [facility]. Labs (last 24 hrs) Laboratory Tests 02/13/20 14:02: Glucometer 133H 02/13/20 15:26: Glucometer 129H 02/13/20 18:10: White Blood Count 9.9, Red Blood Count 3.42L, Hemoglobin 11.3L, Hematocrit 34L, Mean Corpuscular Volume 99, Mean Corpuscular Hemoglobin 33, Mean Corpuscular Hemoglobin Concent 33, Red Cell Distribution Width 13.4, Platelet Count 81L, Mean Platelet Volume 10.8, Immature Granulocyte % (Auto) 8, Neutrophils (%) (Auto) 84H, Lymphocytes (%) (Auto) 3L, Monocytes (%) (Auto) 5, Eosinophils (%) (Auto) 0, Basophils (%) (Auto) 1, Neutrophils # (Auto) 8.3H, Lymphocytes # (Auto) 0.3L, Monocytes # (Auto) 0.4, Eosinophils # (Auto) 0.0, Basophils # (Auto) 0.1, Immature Granulocyte # (Auto) 0.7H, Prothrombin Time 20.2H, INR Comment 1.7H, Activated Partial Thromboplast Time 43H, Sodium Level 137, Pota ssium Level 4.3, Chloride Level 96L, Carbon Dioxide Level 21, Anion Gap 20H, Blood Urea Nitrogen 45H, Creatinine 3.99H, Estimat Glomerular Filtration Rate 16, BUN/Creatinine Ratio 11, Glucose Level 125H, Lactic Acid Level 5.02*H, Calcium Level 6.0*L, Phosphorus Level 8.5H, Magnesium Level 1.8 02/13/20 20:30: Blood Gas Puncture Site LEFT RADIAL, Blood Gas Patient Temperature 36.0, Arterial Blood pH 7.33*L, Arterial Blood Partial Pressure CO2 46H, Arterial Blood Partial Pressure O2 104H, Arterial Blood HCO3 24, Arterial Blood Total CO2 25.4, Arterial Blood Oxygen Saturation 98, Arterial Blood Base Excess -1.4, Aristeo Test ART LINE, Blood Gas Ventilator Setting YES, Blood Gas Inspired Oxygen 40% 02/14/20 00:38: White Blood Count 13.5H, Red Blood Count 3.37L, Hemoglobin 11.1L, Hematocrit 33L , Mean Corpuscular Volume 97, Mean Corpuscular Hemoglobin 33, Mean Corpuscular Hemoglobin Concent 34, Red Cell Distribution Width 13.4, Platelet Count 73L, Mean Platelet Volume 11.0, Immature Granulocyte % (Auto) 9, Neutrophils (%) (Auto) 84H, Lymphocytes (%) (Auto) 3L, Monocytes (%) (Auto) 3, Eosinophils (%) (Auto) 0, Basophils (%) (Auto) 1, Neutrophils # (Auto) 11.4H, Lymphocytes # (Auto) 0.4L, Monocytes # (Auto) 0.4, Eosinophils # (Auto) 0.0, Basophils # (Auto) 0.1, Immature Granulocyte # (Auto) 1.2H, Prothrombin Time 19.8H, INR Comment 1.6H, Activated Partial Thromboplast Time 44H, Sodium Level 139, Potassium Level 4.2, Chloride Level 97L, Carbon Dioxide Level 22, Anion Gap 20H, Blood Urea Nitrogen 48H, Creatinine 4.20H, Estimat Glomerular Filtration Rate 15, BUN/Creatinine Ratio 11, Glucose Level 126H, Lactic Acid Level 3.74*H, Calcium Level 6.0*L, Corrected Calcium 7.4L, Phosphorus Level 7.8H, Magnesium Level 1.7, Total Bilirubin 1.7H, Aspartate Amino Transf (AST/SGOT) 635H, Alanine Aminotransferase (ALT/SGPT) 532#H, Alkaline Phosphatase 49, Total Protein 4.0L, Albumin 2.2L 02/14/20 00:50: Blood Gas Puncture Site LEFT ART LINE, Blood Gas Patient Temperature 36.6, Arterial Blood pH 7.38, Arterial Blood Partial Pressure CO2 43, Arterial Blood Partial Pressure O2 117H, Arterial Blood HCO3 25, Arterial Blood Total CO2 26.3, Arterial Blood Oxygen Saturation 98, Arterial Blood Base Excess 0.4, Aristeo Test ART LINE, Blood Gas Ventilator Setting YES, Blood Gas Inspired Oxygen 35% 02/14/20 06:00: White Blood Count 11.5H, Red Blood Count 3.08L, Hemoglobin 10.2L, Hematocrit 30L , Mean Corpuscular Volume 97, Mean Corpuscular Hemoglobin 33, Mean Corpuscular Hemoglobin Concent 34, Red Cell Distribution Width 13.3, Platelet Count 55L, Mean Platelet Volume 11.3, Immature Granulocyte % (Auto) 2, Neutrophils (%) ( Auto) 91H, Lymphocytes (%) (Auto) 2L, Monocytes (%) (Auto) 3, Eosinophils (%) (Auto) 0, Basophils (%) (Auto) 1, Neutrophils # (Auto) 10.5H, Lymphocytes # (Auto) 0.3L, Monocytes # (Auto) 0.4, Eosinophils # (Auto) 0.0, Basophils # (Auto) 0.1, Immature Granulocyte # (Auto) 0.2H, Prothrombin Time 17.4H, INR Comment 1.4, Activated Partial Thromboplast Time 42H, Sodium Level 138, Potassium Level 4.1, Chloride Level 97L, Carbon Dioxide Level 24, Anion Gap 17H, Blood Urea Nitrogen 50H, Creatinine 4.43H, Estimat Glomerular Filtration Rate 14, BUN/Creatinine Ratio 11, Glucose Level 112H, Lactic Acid Level 3.92*H, Calcium Level 5.9*L, Phosphorus Level 6.6H, Magnesium Level 1.6 02/14/20 08:09: Lactic Acid Level 3.63*H Microbiology 02/12/20 Gram Stain - Final, Resulted 02/12/20 Anaerobic Culture, Resulted Pending 02/12/20 Surgical Culture - Preliminary, Resulted Serratia marcescens Enterobacter cloacae complex 02/12/20 Blood Culture - Preliminary, Resulted No growth 02/12/20 Gram Stain - Final, Resulted 02/12/20 Sputum Culture - Preliminary, Resulted No growth 02/12/20 Urine Culture - Final, Complete NO GROWTH Patient resulted labs reviewed. Pending Labs Laboratory Tests 02/14/20 06:00: White Blood Count 11.5, Red Blood Count 3.08, Hemoglobin 10.2, Hematocrit 30, Mean Corpuscular Volume 97, Mean Corpuscular Hemoglobin 33, Mean Corpuscular Hemoglobin Concent 34, Red Cell Distribution Width 13.3, Platelet Count 55, Mean Platelet Volume 11.3, Immature Granulocyte % (Auto) 2, Neutrophils (%) (Auto) 91, Lymphocytes (%) (Auto) 2, Monocytes (%) (Auto) 3, Eosinophils (%) (Auto) 0, Basophils (%) (Auto) 1, Neutrophils # (Auto) 10.5, Lymphocytes # (Auto) 0.3, Monocytes # (Auto) 0.4, Eosinophils # (Auto) 0.0, Basophils # (Auto) 0.1, Immature Granulocyte # (Auto) 0.2, Prothrombin Time 17.4, INR Comment 1.4, A ctivated Partial Thromboplast Time 42, Sodium Level 138, Potassium Level 4.1, Chloride Level 97, Carbon Dioxide Level 24, Anion Gap 17, Blood Urea Nitrogen 50, Creatinine 4.43, Estimat Glomerular Filtration Rate 14, BUN/Creatinine Ratio 11, Glucose Level 112, Lactic Acid Level 3.92, Calcium Level 5.9, Phosphorus Level 6.6, Magnesium Level 1.6 02/14/20 08:09: Lactic Acid Level 3.63 Imaging: Reviewed Imaging Report Discussion & Recommendations Discharge Planning: >30 minutes discharge planning Discharge Home Medications: Active Scripts Active Reported Aleve (Naproxen Sodium) 220 Mg Capsule 220-440 Mg PO Q8H PRN Hydrocodone-Acetamin 5-325 mg (Hydrocodone/Acetaminophen) 1 Each Tablet 1-2 Ea PO Q4H PRN Lisinopril-Hctz 10-12.5 mg Tab (Lisinopril/Hydrochlorothiazide) 1 Each Tablet 1 Ea PO DAILY Docusate Sodium 100 Mg Capsule 100 Mg PO BID Zofran (Ondansetron HCl) 4 Mg Tab 4 Mg PO Q4H PRN Vraylar (Cariprazine Hydrochloride) 1.5 Mg Capsule 1.5 Mg PO DAILY Alprazolam 0.5 Mg Tablet 0.5 Mg PO BID PRN Temazepam 30 Mg Capsule 30 Mg PO HS Tramadol HCl 50 Mg Tablet 50 Mg PO Q8H PRN Gabapentin 100 Mg Capsule 100 Mg PO BID PRN Baclofen 10 Mg Tablet 10 Mg PO TID PRN Instructions to patient/family Please see electronic discharge instructions given to patient. Clinical Quality Measures DVT/VTE Risk/Contraindication: Risk Factor Score Per Nursin RFS Level Per Nursing on Admit: 4+=Very High AN RUSS MD Feb 14, 2020 13:42
--- NOTE | 2020-02-14 22:51 | OPERATIVE REPORT ---
DATE OF SERVICE: 02/12/2020 PREOPERATIVE DIAGNOSIS: Code blue, need for central line placement. POSTOPERATIVE DIAGNOSIS: Code blue, need for central line placement. PROCEDURE: Right femoral central line placement, ultrasound-guided. SURGEON: Keagan Waddell DO ANESTHESIA: None. ESTIMATED BLOOD LOSS: Minimal. COMPLICATIONS: None. INDICATIONS: The patient is a 55-year-old male who was taken to the operating room and code blue was called. The patient needing central venous access. The ultrasound was used to locate the right femoral vein. The vein was accessed, dark nonpulsatile blood was withdrawn. The guidewire was inserted through the needle, needle was removed. A #11 blade scalpel was used to make a skin incision at the insertion point and the dilator was advanced over the wire and the dilator was then removed. The triple lumen catheter was inserted over the guidewire and the wire was removed. All ports were flushed and accessed without difficulty. This was then secured in the usual fashion. The area was washed and dried and sterile bandage was applied. Job ID: [id number] DocumentID: [id number] Dictated Date: 02/14/2020 13:15:47 Educational Technician Date: 02/14/2020 22:49:41 Dictated By: KEAGAN WADDELL DO
--- NOTE | 2020-02-14 23:43 | OPERATIVE REPORT ---
DATE OF SERVICE: 02/12/2020 PREOPERATIVE DIAGNOSIS: Abdominal compartment syndrome. POSTOPERATIVE DIAGNOSES: Abdominal compartment syndrome, small bowel perforation. PROCEDURE: Exploratory laparotomy with washout, small bowel resection, removal of contaminated mesh, placement of ABThera VAC. SURGEON: Keagan Waddell DO PEANUT CLEANER: assisted in retraction, dissection. ANESTHESIA: General. ESTIMATED BLOOD LOSS: Minimal. SPECIMENS: Small bowel and removed mesh. INDICATIONS: The patient is a 55-year-old male who underwent laparoscopic incarcerated incisional hernia repair. The patient was tachycardic and hypertensive and believed to be septic, where the patient now was admitted. He had a CT scan showing some fluid in the abdomen and also some free air. On abdominal exam, he had abdominal exam that is consistent with postoperative exam. The patient is tachypneic and then had an increasing lactic acid despite medical management; there, the patient was going to the OR, which when he was intubated. The patient coded. The patient was taken back to the Intensive Care Unit for stabilization. The patient then developed abdominal compartment syndrome, which his previous left upper quadrant incision was opened, relieving the pressure as his pressures improved, so the patient was taken to the operating room for further intervention. DESCRIPTION OF PROCEDURE: When the wound was opened, brown succuss erupted from the abdomen. He was taken to the OR. He was prepped and draped in sterile fashion. Timeout was performed. A midline incision was made. The patient had succuss throughout the entire abdomen, which was continued to be suctioned. The small bowel was then begun to be ran from the distal ileum and a perforation of the small bowel was found. Some slight ischemic changes around this area as well. Therefore, the small bowel was dissected around both proximally and distally and a hole was made in each limb and a [id number] anastomosis was created. A LigaSure was then used to divide the mesentery from the small bowel and a 3-0 silk suture was placed for crotch stitch. The abdomen was then irrigated with copious amounts of irrigation. The mesh was grossly contaminated; therefore, this was grasped and removed. The small bowel was ran again from the ileocecal valve all the way to the ligament of Treitz, no other pathology identified. The colon had normal appearance. The abdomen was then left open and the ABThera vacuum device was inserted. The patient was taken back to the Intensive Care Unit in critical condition. Job ID: [id number] DocumentID: [id number] Dictated Date: 02/14/2020 13:26:20 Hotel Front Office Manager Date: 02/14/2020 23:42:50 Dictated By: KEAGAN WADDELL DO
--- NOTE | 2020-02-15 05:49 | Physician Query Clarification ---
[facility]-Link Infection to Dev/Proc Admission/Discharge Admission Date: Feb 11, 2020 at 17:25 Discharge Date: Feb 14, 2020 at 12:05 HERNANDO Fontenot MD The medical record reflects the following clinical scenario: History/Risk Factors: 55 year old male who presented after an appointment with his primary care doctor revealed a significant tachycardia. Yesterday he underwent an incisional hernia repair which was uncomplicated. He was found to be tachycardic to the 150s. Hand P, 02/10: Septic shock, Lactic acidosis, s/p incisional hernia repair. SIRS+ with tachycardia and leukocytosis. Progress notes, 02/11: Septic shock, Perforated bowel s/p small bowel resection Clinical Findings: WBC-30.2 H, Lactic acid 6.60 H, Anion gap-20 H Treatment: IV Vancomycin, small bowel resection, removal of mesh Question: Can you specify if the Sepsis is due to/associated with Hernia repair? Please document a response in Progress Note or Discharge Summary. 1. Yes - Sepsis is due to/associated with incisional hernia repair. 2. No - Sepsis is not due to/associated with incisional hernia repair. 3. Other, with explanation of the clinical findings. 4. Clinically undetermined, no explanation for the clinical findings. PHYSICIAN RESPONSE Specify if infection: 1 Please remember a lack of response to the above will prompt a phone page by [facility]oding staff. In responding to this query, please exercise your independent professional judgment. The purpose of this communication is to more accurately reflect the complexity of your patients condition. The fact that a question is asked does not imply that any particular answer is desired or expected. Thank you for your timely response to this clarification. Requestors name: [ ] Phone # [ ] THIS PHYSICIAN QUERY FORM IS A PERMANENT PART OF THE MEDICAL RECORD MERE GIBSON Feb 15, 2020 05:49 HERNANDO KNAPP MD Feb 21, 2020 17:51
== END 2020-02-14 12:05 | disposition short-term general hospital (02) | DRG 856 ==
LOC: EDUNIT# 15:08 → ER 15:09 → ICU 17:25
PROVIDERS: ADMIT Internal Medicine; ATTEND Internal Medicine
PROC: 0DT80ZZ Resection of Small Intestine, Open Approach (ICD-10-PCS; principal; 2020-02-11)
PROC: 0DPW0JZ Removal of Synthetic Substitute from Peritoneum, Open Approach (ICD-10-PCS; 2020-02-11)
PROC: 5A1945Z Respiratory Ventilation, 24-96 Consecutive Hours (ICD-10-PCS; 2020-02-11)
PROC: 0BH17EZ Insertion of Endotracheal Airway into Trachea, Via Natural or Artificial Opening (ICD-10-PCS; 2020-02-11)
PROC: 02HV33Z Insertion of Infusion Device into Superior Vena Cava, Percutaneous Approach (ICD-10-PCS; 2020-02-13)
DX: T81.44XA Sepsis following a procedure, initial encounter (principal); A41.9 Sepsis, unspecified organism; R65.21 Severe sepsis with septic shock; J96.01 Acute respiratory failure with hypoxia; K72.00 Acute and subacute hepatic failure without coma; J96.02 Acute respiratory failure with hypercapnia; I46.9 Cardiac arrest, cause unspecified; N17.0 Acute kidney failure with tubular necrosis; K63.1 Perforation of intestine (nontraumatic); I49.01 Ventricular fibrillation; E87.2 Acidosis; T79.A0XA Compartment syndrome, unspecified, initial encounter; E83.39 Other disorders of phosphorus metabolism; F31.9 Bipolar disorder, unspecified; F12.20 Cannabis dependence, uncomplicated
CPT/HCPCS: 36415; 71045; 74176; 80048; 80053; 80076; 80202; 80306; 81000; 82140; 82150; 82550; 82805; 82962; 83605; 83690; 83735; 84100; 84145; 84478; 84484; 85007; 85025; 85027; 85379; 85384; 85610; 85730; 86850; 86900; 86901; 86920; 87040; 87070; 87075; 87077; 87081; 87088; 87186; 87205; 87635; 87804; 88300; 88307; 93005; 93306; 94002; 94003; 94640; 94799; 96361; 96365; 96366; 96375; 96376